=== PATIENT | male | born 1970 | race Caucasian/White ===

== ENCOUNTER 2018-05-12 23:54 | Emergency (ER) | payer OTHER, MEDICAID, SELFPAY ==
[2018-05-13 00:01] VITALS: BP 147/90; PULSE 89; RESP 20; TEMP 36.4; O2SAT 97
[2018-05-13] MEDS: KETOROLAC 60 MG/2 ML VIAL 30 MG IV (00:23)
[2018-05-13 00:28] LABS: Add Manual Diff / Slide Review NO; Basophils Percent Auto 0.8 % (0-2); Eosinophils Percent Auto 5.4 % (2-4); Hematocrit 37.9 % (41-53); Lymphocytes Percent Auto 30.2 % (25-40); Mean Corpuscular HGB Conc 34.4 % (30-36); Mean Corpuscular Volume 93.1 fL (80-100); Monocytes Percent Auto 7.2 % (3-14); Neutrophils Absolute Auto 4300 /uL (3000-5900); Neutrophils Percent Auto 56.4 % (50-75); Platelet Count 290 X10^3/uL (150-400); Red Blood Cell Count 4.07 X10^6/uL (4.5-5.9); Red Cell Distribution Width 12.6 % (11.6-14.8); White Blood Cell Count 7.5 X10^3/uL (4.5-11.0)
[2018-05-13 00:37] LABS: BUN Creatinine Ratio 18.3 (6-22); Blood Urea Nitrogen 22 mg/dL (9-20); Calcium 9.4 mg/dL (8.4-10.2); Carbon Dioxide 25 mmol/L (22-32); Chloride 104 mmol/L (98-107); Estimated Glomerular Filt Rate > 60.0 mL/min (>60); Glucose 99 mg/dL (70-100); HEMOLYSIS 17 (0-50); Potassium 3.8 mmol/L (3.4-5.1); Sodium 141 mmol/L (137-145)
[2018-05-13 00:58] LABS: Bacteria Urine None Seen; RBC Urine None Seen (0-5/HPF)
[2018-05-13 01:00] LABS: Appearance Urine UA CLEAR; Bilirubin Urine UA NEGATIVE (NEGATIVE); Color Urine UA YELLOW; Glucose Urine UA NEGATIVE (Normal); Ketones Urine UA TRACE (NEGATIVE); Leukocyte Esterase Urine UA NEGATIVE (NEGATIVE); Nitrite Urine UA Negative (Negative); Occult Blood Urine UA NEGATIVE (Negative); Protein Urine UA TRACE (Negative); Specific Gravity Urine UA >=1.030 (1.000-1.035); Urobilinogen Urine UA 0.2 E.U./dL (0.2)
[2018-05-13 01:07] LABS: Calcium Oxalate Crystals Urine Moderate; Mucus Urine 1+ (Negative); Squamous Epithelial Cell Urine 0-1 /HPF; WBC Urine 0-1/HPF (0-5/HPF)
[2018-05-13 01:08] LABS: Culture Indicated Urine Cult Not Indicated
[2018-05-13 01:15] VITALS: BP 137/90; PULSE 70; RESP 14; O2SAT 97
[2018-05-13] MEDS: SODIUM CHLORIDE 0.9% IV (01:17)
[2018-05-13] MEDS: LIDOCAINE 2% IV (01:17)
[2018-05-13 02:02] VITALS: BP 119/72; PULSE 84; RESP 13; O2SAT 96
--- NOTE | 2018-05-13 02:15 | ED_ITS ---
HPI - Abdominal Pain General Chief Complaint: Abdominal Pain Stated Complaint: back pain, states possible kidney stone Time Seen by Provider: 05/13/18 00:08 Source: patient Mode of arrival: ambulatory Limitations: no limitations History of Present Illness HPI narrative: Patient is a 47-year-old male who presents with back pain. He has a history of kidney stones and feels like he is passing 1 on the left. However he is here more for worsening chronic back pain which is midline. He does got through physical therapy. He has been taking naproxen for it. He denies any numbness or tingling down her legs. Tonight the pain got worse. No changes in bowel or bladder habits. He feels like help passes kidney stone but seems to be making his chronic back pain worse. MD complaint: flank pain Related Data Home Medications Medication Instructions Recorded Confirmed propranolol 40 mg PO QPM #0 03/21/17 cholecalciferol (vitamin D3) 2,000 unit PO QPM #0 07/26/17 [Vitamin D3] multivitamin [Multiple Vitamins] 1 tab PO QPM #0 07/26/17 naproxen 250 mg PO PRN PRN #0 07/26/17 Previous Rx's Medication Instructions Recorded hydrocodone-acetaminophen [[place]] 1 tab PO Q6HP PRN #10 tab 07/21/17 ondansetron [Zofran ODT] 4 mg SUBLINGUAL Q6HP PRN #10 odt 07/21/17 tamsulosin [Flomax] 0.4 mg PO QDAY #7 cap 07/21/17 tramadol 50 mg PO Q6H PRN #10 tab 05/13/18 Allergies Allergy/AdvReac Type Severity Reaction Status Date / Time meperidine [From DEMEROL] Allergy Unknown Unverified 01/22/18 12:16 Review of Systems Review of Systems GENERAL: Denies chills, fatigue, malaise, fever, sweats, travel HEENT: Denies sinus pain, ear pain, sore throat, difficulty swallowing, neck pain RESPIRATORY: Denies dyspnea, cough, wheezing, hemoptysis, sputum. CARDIOVASCULAR: Denies chest pain, palpitations, orthopnea, edema GASTROINTESTINAL: Denies nausea, vomiting, abdominal pain, diarrhea, constipation, melena. : See HPI MUSCULOSKELETAL: Back pain, see HPI SKIN: No rash, no erythema, no pruritus NEUROLOGIC: Denies weakness, dizziness, headache, numbness, change in speech, confusion PSYCHIATRIC: No concerning psychosocial issues. 12 point review of systems is negative except for those stated above and HPI [facility] Medical History Chronic back pain (Acute) Kidney stones (Acute) Exam Initial Vital Signs Initial Vital Signs: Vital Signs Temperature 97.6 F 05/13/18 00:01 Pulse Rate 89 05/13/18 00:01 Respiratory Rate 20 05/13/18 00:01 Blood Pressure 147/90 H 05/13/18 00:01 Pulse Oximetry 97 05/13/18 00:01 GENERAL: Sitting on edge of bed appears slightly uncomfortable but not toxic HEENT: Head atraumatic,EOMI, pupils reactive, CARDIOVASCULAR: Regular rate and rhythm without murmurs, rubs or gallops. RESPIRATORY: Breath sounds equal bilaterally, no wheezes rales or rhonchi. ABDOMEN: Soft, nontender. Normoactive bowel sounds all 4 quadrants. No guarding or rebound. BACK: Midline tenderness in lumbar area no step-offs. No sign of trauma. : mild left CVA tenderness EXTREMITIES: Normal range of motion, no clubbing or edema. Neurovascularly intact NEUROLOGICAL: Alert and oriented x4.Normal gait and speech. SKIN: Warm, dry, no laceration, no petechiae, no rashes or lesions. Course Orders Ordered: ED Orders 05/13/18 00:19 Basic Metabolic Panel Stat Complete Blood Count AUTO DIFF Stat 05/13/18 00:54 Urinalysis and Microscopic Stat Discontinued Medications Lidocaine HCl 7.3 ml/ Sodium (Chloride) 57.3 mls @ 343.8 mls/hr IV NOW ONE Stop: 05/13/18 01:02 Last Infusion: 05/13/18 01:56 Dose: 0 mls/hr Admin: 05/13/18 01:17 Dose: 343.8 mls/hr Ketorolac Tromethamine (Toradol) 30 mg IV NOW ONE Stop: 05/13/18 00:22 Last Admin: 05/13/18 00:23 Dose: 30 mg Tramadol HCl (Ultram 50mg Prepack) 1 bottle MISC SEEINSTR ONE Stop: 05/13/18 01:58 Last Admin: 05/13/18 02:29 Dose: 1 bottle Vital Signs - 8 hr 05/13/18 00:01 05/13/18 01:15 05/13/18 02:02 Temperature 97.6 F Pulse Rate 89 70 84 Respiratory Rate 20 14 13 Blood Pressure 147/90 H Blood Pressure [Left Arm] 137/90 H 119/72 Pulse Oximetry 97 97 96 05/13/18 02:45 Temperature Pulse Rate 71 Respiratory Rate 14 Blood Pressure 144/99 H Blood Pressure [Left Arm] Pulse Oximetry 97 MDM - Abdominal Pain Lab Data Result diagrams: 05/13/18 00:19 05/13/18 00:19 Lab Results 05/13/18 05/13/18 05/13/18 Range/Units 00:19 00:19 00:54 WBC 7.5 (4.5-11.0) X10^3/uL RBC 4.07 L (4.5-5.9) X10^6/uL Hgb 13.0 L (13.5-17.5) g/dL Hct 37.9 L (41-53) % MCV 93.1 (80-100) fL MCH 32.0 (26-34) PG MCHC 34.4 (30-36) % RDW 12.6 (11.6-14.8) % Plt Count 290 (150-400) X10^3/uL Neut % (Auto) 56.4 (50-75) % Lymph % (Auto) 30.2 (25-40) % [place] % (Auto) 7.2 (3-14) % Eos % (Auto) 5.4 H (2-4) % Baso % (Auto) 0.8 (0-2) % Neut # (Auto) 4300 (5381-2041) /uL Sodium 141 (137-145) mmol/L Potassium 3.8 (3.4-5.1) mmol/L Chloride 104 (98-107) mmol/L Carbon Dioxide 25 (22-32) mmol/L BUN 22 H (9-20) mg/dL Creatinine 1.20 (0.66-1.25) mg/dL Estimated GFR > 60.0 (>60) mL/min BUN/Creatinine Ratio 18.3 (6-22) Glucose 99 (70-100) mg/dL Calcium 9.4 (8.4-10.2) mg/dL Urine Color Yellow Urine Appearance Clear Urine pH 5.0 (4.5-8.0) Ur Specific [place] >=1.030 H (1.000-1.035) Urine Protein Trace H (Negative) Urine Glucose (UA) Negative (Normal) g/dL Urine Ketones Trace H (NEGATIVE) Urine Occult Blood Negative (Negative) Urine Nitrate Negative (Negative) Urine Bilirubin Negative (NEGATIVE) Urine Urobilinogen 0.2 (0.2) E.U./dL Ur Leukocyte Esterase Negative (NEGATIVE) Urine RBC None seen (0-5/HPF) Urine WBC 0-1/hpf (0-5/HPF) Ur Squamous Epith Cells 0-1 /hpf Calcium Oxalate Crystal Moderate H (None) Urine Bacteria None seen (None) Urine Mucus 1+ H (Negative) Ur Culture Indicated? Cult not indicated Micro UA Comment Not Reportable MDM Narrative Medical decision making narrative: The patient's midline back pain is the same as it has been over a number of months. It is unchanged just more acute right now. Likely cause he thinks he is passing a stone at the same time. He has no weakness numbness or tingling in his legs. No fever. Pain has improved some with Toradol. Tried lidocaine infusion which only helped mildly. He will get a prepack and prescription for tramadol. Discharge Plan Departure Patient Disposition: Home, Self-Care Clinical Impression: Back pain Discharge Date/Time: 05/13/18 02:50 Interventions: ED Discharge Assessment Last Done: 05/13/18 02:45 Instructions: DI for Low Back Pain Activity Restrictions/Additional Instructions: *You have been diagnosed with back pain and kidney stone pain *What to do: May need physical therapy for your chronic ongoing below back pain *Continue to take medications as directed Tramadol 1-2 tablets every 6 hr if needed for severe pain *Follow up with your primary care provider in 2-3 days *Return to ER if you should have increasing pain, leg weakness or any new, worsening or concerning symptoms Prescriptions: New tramadol 50 mg tablet 50 mg PO Q6H PRN (Reason: pain) Qty: 10 RF: 0 No Action propranolol 40 MG tablet 40 mg PO QPM Qty: 0 RF: 0 hydrocodone-acetaminophen [[place]] 5 MG/325 MG tablet 1 tab PO Q6HP PRNQty: 10 RF: 0 tamsulosin [Flomax] 0.4 MG capsule,extended release 24hr 0.4 mg PO QDAY Qty: 7 RF: 0 ondansetron [Zofran ODT] 4 MG tablet,disintegrating 4 mg Sublingual Q6HP PRNQty: 10 RF: 0 multivitamin [Multiple Vitamins] 1 EACH tablet 1 tab PO QPM Qty: 0 RF: 0 naproxen 250 MG tablet 250 mg PO PRN PRNQty: 0 RF: 0 cholecalciferol (vitamin D3) [Vitamin D3] 2,000 UNIT capsule 2,000 unit PO QPM Qty: 0 RF: 0 Referrals: Velma Todd ARNP [Primary Care Provider] -
[2018-05-13] MEDS: TRAMADOL 50 MG PREPACK 1 BOTTLE MISC (02:29)
[2018-05-13 02:45] VITALS: BP 144/99; PULSE 71; RESP 14; O2SAT 97
== END 2018-05-13 02:50 | disposition home or self-care (01) ==
PROVIDERS: Emergency Provider Emergency Medicine; Family Provider Nurse Practitioner Gerontology; PCP Nurse Practitioner Gerontology
DX: M54.9 Dorsalgia, unspecified (principal)
CPT/HCPCS: 36591; 80048; 81001; 85025; 96374; 96375; 99283; 99284; J1885

== ENCOUNTER 2018-12-17 21:22 | Emergency (ER) | payer OTHER, MEDICAID, SELFPAY ==
[2018-12-17 21:38] VITALS: BP 160/90; PULSE 96; RESP 20; TEMP 36.9; O2SAT 96; BMI 29.9
--- NOTE | 2018-12-17 22:28 | DI.RAD.S_ITS ---
PROCEDURE: XR CHEST 1V INDICATIONS: syncope, cough TECHNIQUE: One view of the chest was acquired. COMPARISON: [facility], , CHEST 1 VIEW, 07/26/2017, 19:14. FINDINGS: Surgical changes and devices: None. Lungs and pleura: Lungs are clear. No pleural effusions or pneumothorax. Mediastinum: Mediastinal contours appear normal. Heart size is normal. Bones and chest wall: No suspicious bony lesions. Overlying soft tissues appear unremarkable. IMPRESSION: No acute cardiopulmonary disease process. Dictated by: Monserrat Du MD, PhD on 12/18/2018 at 9:17 Approved by: Monserrat Du MD, PhD on 12/18/2018 at 9:17
[2018-12-17 22:29] VITALS: BP 145/87; PULSE 98; RESP 18; O2SAT 96
[2018-12-17 23:01] LABS: Add Manual Diff / Slide Review NO; Alanine Aminotransferase 52 IU/L (21-72); Albumin 4.4 g/dL (3.5-5.0); Albumin Globulin Ratio 1.4 (1.0-2.8); Alkaline Phosphatase 61 U/L (38-126); Aspartate Aminotransferase 30 IU/L (17-59); BUN Creatinine Ratio 17.3 (6-22); Basophils Absolute Auto 0 /uL (0-100); Basophils Percent Auto 0.3 % (0-2); Bilirubin Total 0.3 mg/dL (0.2-1.3); Blood Urea Nitrogen 19 mg/dL (9-20); Calcium 9.4 mg/dL (8.4-10.2); Carbon Dioxide 28 mmol/L (22-32); Chloride 100 mmol/L (98-107); Eosinophils Absolute Auto 0 /uL (0-450); Eosinophils Percent Auto 0.1 % (2-4); Estimated Glomerular Filt Rate > 60.0 mL/min (>60); Globulin 3.2 g/dL (1.7-4.1); Glucose 121 mg/dL (70-100); HEMOLYSIS < 15 (0-50); Hematocrit 42.8 % (41-53); Hemoglobin 14.2 g/dL (13.5-17.5); Lymphocytes Absolute Auto 600 /uL (1100-4500); Lymphocytes Percent Auto 8.1 % (25-40); Mean Corpuscular HGB Conc 33.2 % (30-36); Mean Corpuscular Volume 93.3 fL (80-100); Monocytes Absolute Auto 600 /uL (0-900); Neutrophils Absolute Auto 6600 /uL (1500-7000); Neutrophils Percent Auto 83.5 % (50-75); Platelet Count 268 X10^3/uL (150-400); Potassium 4.4 mmol/L (3.4-5.1); Red Blood Cell Count 4.58 X10^6/uL (4.5-5.9); Red Cell Distribution Width 12.5 % (11.6-14.8); Sodium 138 mmol/L (137-145); Total Protein 7.6 g/dL (6.3-8.2); White Blood Cell Count 7.9 X10^3/uL (4.5-11.0)
[2018-12-17 23:31] VITALS: BP 145/87; PULSE 96; RESP 18; O2SAT 96
--- NOTE | 2018-12-18 00:33 | ED_ITS ---
HPI - URI/Sore Throat General Chief Complaint: Upper Respiratory Symptoms Stated Complaint: STATES PASSES OUT WHEN COUGH OR SNEEZE Time Seen by Provider: 12/18/18 00:15 Source: patient Mode of arrival: ambulatory Limitations: no limitations History of Present Illness HPI Narrative: The patient has been ill for 3 weeks. He has spasmodic cough. The coughing hurts so bad he complains of bilateral headache. He has passed out following a spastic cough. He has no associated chest pain. He has no palpitations. He is on meds for hypertension, apparently no Andi inhibitors. He has no chronic cough. He has no asthma. He is not a smoker. He is seen at [facility], chest x-ray was reported normal. Was given a brief course of steroids. He has no eye discharge. He has bilateral frontal pain. Although coug atif, he has no dyspnea and no hemoptysis. He has no associated chest pain. He has no peripheral edema. Related Data Home Medications Medication Instructions Recorded Confirmed propranolol 40 mg PO QPM #0 03/21/17 cholecalciferol (vitamin D3) 2,000 unit PO QPM #0 07/26/17 [Vitamin D3] multivitamin [Multiple Vitamins] 1 tab PO QPM #0 07/26/17 naproxen 250 mg PO PRN PRN #0 07/26/17 albuterol sulfate [ProAir HFA] 12/17/18 diclofenac sodium 12/17/18 prednisone 12/17/18 Previous Rx's Medication Instructions Recorded hydrocodone-acetaminophen [[place]] 1 tab PO Q6HP PRN #10 tab 07/21/17 ondansetron [Zofran ODT] 4 mg SUBLINGUAL Q6HP PRN #10 odt 07/21/17 tamsulosin [Flomax] 0.4 mg PO QDAY #7 cap 07/21/17 tramadol 50 mg PO Q6H PRN #10 tab 05/13/18 amoxicillin-pot clavulanate 1 tab PO BID #20 tab 12/18/18 prednisone 60 mg PO DAILY #9 tab 12/18/18 Allergies Allergy/AdvReac Type Severity Reaction Status Date / Time meperidine [From DEMEROL] Allergy Unknown Unverified 01/22/18 12:16 Review of Systems Constitutional Reports system reviewed and no additional complaints, except as docu and Reports headache(s) Eyes Denies change in vision, Denies eye discharge, Denies irritation and Denies loss of vision ENT Ears, Nose, Mouth, and Throat: Denies change in voice, Reports headache(s), De nies neck pain and Denies sore throat Cardiovascular Denies chest pain, Reports syncope, Denies irregular heart rhythm, Denies lightheadedness, Denies palpitations, Denies dyspnea and Denies orthopnea Respiratory Denies cough, Denies dyspnea and Denies wheezing Gastrointestinal Gastrointestinal: Denies abdominal pain, Denies nausea and Denies vomiting Musculoskeletal Denies back pain and Denies neck pain Integumentary/Breasts Denies erythema and Denies rash Neurologic Denies confusion, Reports syncope, Reports headache(s) and Denies loss of vision Psychiatric Denies anxiety and Denies confusion Endocrine Denies palpitations Allergic/Immunologic Denies wheezing PFSH Medical History Hypertension (Acute) Chronic back pain (Acute) Kidney stones (Acute) Surgical History No pertinent past surgical history (Acute) Social History Smoking Status: Never smoker Social History Smoking Status: Never smoker Exam Initial Vital Signs Initial Vital Signs: Vital Signs Temperature 98.4 F 12/17/18 21:38 Pulse Rate 96 H 12/17/18 21:38 Respiratory Rate 20 12/17/18 21:38 Blood Pressure 160/90 H 12/17/18 21:38 Pulse Oximetry 96 12/17/18 21:38 Const General: cooperative and well developed Nutritional Appearance: well nourished Orientation: alert, awake, oriented x3 and not confused Other: Frequent spasmodic coughs HENMT Head: normocephalic and atraumatic Ears: external ears normal, TM normal on the right, TM normal on the left (Clear fluid behind the left TM.) and mastoids normal Nose: external nose normal and No nasal discharge Face and sinus: sinuses nontender (No maxillary or ethmoid tenderness. Bilateral forehead discomfort w/ cough), face symmetric, no sinus tenderness and No dry mucous membranes Mouth: oral mucosae normal and moist mucous membranes Teeth and gingiva: dentition normal Throat: tonsils normal and uvula midline Eyes General: appearance normal, both eyes and all related structures Eyelids: eyelids normal Conjunctivae: conjunctivae normal Sclera: sclerae normal Pupils: PERRL EOM: EOM intact bilaterally Neck Lymphatic: No lymphadenopathy Chest Chest: normal inspection of the chest Resp Effort & Inspection: normal respiratory effort, able to speak in complete sentences, no respiratory distress and no use of accessory muscles Auscultation: clear to auscultation bilaterally, no rales, no rhonchi and no wheezes Cardio Rate: regular rate Rhythm: regular rhythm Heart Sounds: no click, no gallops, no murmurs and no rubs Pulses: normal peripheral pulses Skin General: no rashes or lesions noted, No jaundice and No petechiae Course Orders Ordered: ED Orders 12/17/18 22:28 Chest [XR chest 1V] Stat EKG-12 Lead Stat 12/17/18 22:44 Complete Blood Count AUTO DIFF Stat Comprehensive Metabolic Panel Stat Discontinued Medications Amoxicillin/Clavulanate Potassium (Augmentin 875-125 Mg) 1 tab PO NOW ONE Stop: 12/18/18 01:40 Last Admin: 12/18/18 01:44 Dose: 1 tab Ketorolac Tromethamine (Toradol) 60 mg IM NOW ONE Stop: 12/18/18 03:35 Last Admin: 12/18/18 03:36 Dose: 60 mg Prednisone (Deltasone) 60 mg PO NOW ONE Stop: 12/18/18 01:40 Last Admin: 12/18/18 01:44 Dose: 60 mg Vital Signs - 8 hr 12/17/18 21:38 12/17/18 22:29 12/17/18 23:31 Temperature 98.4 F Pulse Rate 96 H 98 H 96 H Respiratory Rate 20 18 18 Blood Pressure 160/90 H Blood Pressure [Right Arm] 145/87 H 145/87 H Pulse Oximetry 96 96 96 12/18/18 02:08 12/18/18 03:37 Temperature Pulse Rate 88 96 H Respiratory Rate 20 20 Blood Pressure Blood Pressure [Right Arm] 126/77 143/97 H Pulse Oximetry 96 96 MDM - URI/Sore Throat Lab Data Result diagrams: 12/17/18 22:44 12/17/18 22:44 Lab Results 12/17/18 12/17/18 Range/Units 22:44 22:44 WBC 7.9 (4.5-11.0) X10^3/uL RBC 4.58 (4.5-5.9) X10^6/uL Hgb 14.2 (13.5-17.5) g/dL Hct 42.8 (41-53) % MCV 93.3 (80-100) fL MCH 31.0 (26-34) PG MCHC 33.2 (30-36) % RDW 12.5 (11.6-14.8) % Plt Count 268 (150-400) X10^3/uL Neut % (Auto) 83.5 H (50-75) % Lymph % (Auto) 8.1 L (25-40) % [place] % (Auto) 8.0 (3-14) % Eos % (Auto) 0.1 L (2-4) % Baso % (Auto) 0.3 (0-2) % Neut # (Auto) 6600 (3399-0372) /uL Lymph # (Auto) 600 L (5563-9842) /uL [place] # (Auto) 600 (0-900) /uL Eos # (Auto) 0 (0-450) /uL Baso # (Auto) 0 (0-100) /uL Sodium 138 (137-145) mmol/L Potassium 4.4 (3.4-5.1) mmol/L Chloride 100 (98-107) mmol/L Carbon Dioxide 28 (22-32) mmol/L BUN 19 (9-20) mg/dL Creatinine 1.10 (0.66-1.25) mg/dL Estimated GFR > 60.0 (>60) mL/min BUN/Creatinine Ratio 17.3 (6-22) Glucose 121 H (70-100) mg/dL Calcium 9.4 (8.4-10.2) mg/dL Total Bilirubin 0.3 (0.2-1.3) mg/dL AST 30 (17-59) IU/L ALT 52 (21-72) IU/L Alkaline Phosphatase 61 (38-126) U/L Total Protein 7.6 (6.3-8.2) g/dL Albumin 4.4 (3.5-5.0) g/dL Globulin 3.2 (1.7-4.1) g/dL Albumin/Globulin Ratio 1.4 (1.0-2.8) Imaging Data Chest x-ray: My impression: Normal ECG Data Attestation: I personally reviewed and interpreted this ECG as follows: (Sinus tachycardia rate 101 bpm. Moderate LV criteria for LVH. No acute ST or T-wave changes. No ectopy.) [facility] Narrative Medical decision making narrative: The patient was given prednisone 60 mg daily plus started on Augmentin for sphenoid sinusitis. He was also given Toradol for headache. He seems to be feeling much better. Discharge Plan Departure Patient Disposition: Home Clinical Impression: Acute sphenoidal sinusitis Qualifiers: Recurrence: non-recurrent Qualified Code(s): J01.30 - Acute sphenoidal sinusi tis, unspecified Instructions: DI for Sinusitis Activity Restrictions/Additional Instructions: Augmentin 2 times daily as prescribed. Prednisone 60 mg daily. Use cough syrups as needed. Tylenol or Advil as necessary for headache. Drink plenty of fluids. Return here if not improving within 4-5 days. Prescriptions: New prednisone 20 mg tablet 60 mg PO DAILY Qty: 9 RF: 0 amoxicillin-pot clavulanate 875-125 mg tablet 1 tab PO BID Qty: 20 RF: 0 No Action propranolol 40 MG tablet 40 mg PO QPM Qty: 0 RF: 0 hydrocodone-acetaminophen [[place]] 5 MG/325 MG tablet 1 tab PO Q6HP PRNQty: 10 RF: 0 tamsulosin [Flomax] 0.4 MG capsule,extended release 24hr 0.4 mg PO QDAY Qty: 7 RF: 0 ondansetron [Zofran ODT] 4 MG tablet,disintegrating 4 mg Sublingual Q6HP PRNQty: 10 RF: 0 multivitamin [Multiple Vitamins] 1 EACH tablet 1 tab PO QPM Qty: 0 RF: 0 naproxen 250 MG tablet 250 mg PO PRN PRNQty: 0 RF: 0 cholecalciferol (vitamin D3) [Vitamin D3] 2,000 UNIT capsule 2,000 unit PO QPM Qty: 0 RF: 0 prednisone 20 mg tablet RF: 0 ProAir HFA 90 mcg/actuation HFA aerosol inhaler RF: 0 diclofenac sodium 75 mg tablet,delayed release (DR/EC) RF: 0 tramadol 50 mg tablet 50 mg PO Q6H PRN (Reason: pain) Qty: 10 RF: 0 Referrals: Velma Todd ARNP [Primary Care Provider] -
[2018-12-18] MEDS: predniSONE 20 MG TABLET 60 MG PO (01:44)
[2018-12-18] MEDS: AMOXICILLIN/CLAV 875/125 MG 1 TAB PO (01:44)
[2018-12-18 02:08] VITALS: BP 126/77; PULSE 88; RESP 20; O2SAT 96
[2018-12-18] MEDS: KETOROLAC 60 MG/2 ML VIAL IM (03:36)
[2018-12-18 03:37] VITALS: BP 143/97; PULSE 96; RESP 20; O2SAT 96
== END 2018-12-18 04:00 | disposition home or self-care (01) ==
PROVIDERS: Emergency Provider Emergency Medicine; Family Provider Nurse Practitioner Gerontology; PCP Nurse Practitioner Gerontology
DX: J01.30 Acute sphenoidal sinusitis, unspecified (principal); R55 Syncope and collapse
CPT/HCPCS: 36415; 71045; 80053; 85025; 93005; 93010; 99283; 99285; J1885

== ENCOUNTER 2019-01-04 22:05 | Emergency (ER) | payer OTHER, MEDICAID, SELFPAY ==
[2019-01-04 22:13] VITALS: BP 128/87; PULSE 78; RESP 18; O2SAT 96
[2019-01-04 22:24] VITALS: TEMP 36.7
--- NOTE | 2019-01-04 22:37 | ED.URI ---
HPI - URI/Sore Throat General Chief Complaint: Upper Respiratory Symptoms Stated Complaint: says struggling to get air,blacking out Time Seen by Provider: 01/04/19 22:16 Source: patient Mode of arrival: ambulatory Limitations: no limitations History of Present Illness HPI Narrative: Otherwise healthy 48-year-old male here for evaluation of cough and sinus congestion and itchy and watery eyes. He states that he has had episodes where he has coughed so hard that he blacks out. Does have an inhaler at home. He states that he feels like he is short of breath when he coughs. Seen here in the emergency department in the past for this and had x-rays which did not show any new symptoms. Has been on Augmentin recently for sinus infection after he presented with similar symptoms. Related Data Home Medications Medication Instructions Recorded Confirmed propranolol 40 mg PO QPM #0 03/21/17 cholecalciferol (vitamin D3) 2,000 unit PO QPM #0 07/26/17 [Vitamin D3] multivitamin [Multiple Vitamins] 1 tab PO QPM #0 07/26/17 naproxen 250 mg PO PRN PRN #0 07/26/17 albuterol sulfate [ProAir HFA] 12/17/18 diclofenac sodium 12/17/18 prednisone 12/17/18 Previous Rx's Medication Instructions Recorded hydrocodone-acetaminophen [[place]] 1 tab PO Q6HP PRN #10 tab 07/21/17 ondansetron [Zofran ODT] 4 mg SUBLINGUAL Q6HP PRN #10 odt 07/21/17 tamsulosin [Flomax] 0.4 mg PO QDAY #7 cap 07/21/17 tramadol 50 mg PO Q6H PRN #10 tab 05/13/18 amoxicillin-pot clavulanate 1 tab PO BID #20 tab 12/18/18 prednisone 60 mg PO DAILY #9 tab 12/18/18 Allergies Allergy/AdvReac Type Severity Reaction Status Date / Time meperidine [From DEMEROL] Allergy Unknown Unverified 01/22/18 12:16 Review of Systems Constitutional Denies fever(s) Eyes Reports eye discharge, Reports irritation and Reports itchy eyes ENT Ears, Nose, Mouth, and Throat: Reports sinus pressure Cardiovascular Reports dyspnea Respiratory Reports cough and Reports dyspnea Gastrointestinal Gastrointestinal: Denies vomiting Musculoskeletal Denies myalgias Integumentary/Breasts Denies rash Hematologic/Lymphatic Denies easy bleeding and Denies easy bruising Allergic/Immunologic Reports itchy eyes PFSH Medical History Chronic back pain (Acute) Hypertension (Acute) Kidney stones (Acute) Surgical History No pertinent past surgical history (Acute) Social History Smoking Status: Never smoker Social History Smoking Status: Never smoker Exam Initial Vital Signs Initial Vital Signs: Vital Signs Pulse Rate 78 01/04/19 22:13 Respiratory Rate 18 01/04/19 22:13 Blood Pressure 128/87 01/04/19 22:13 Pulse Oximetry 96 01/04/19 22:13 Const General: cooperative, comfortable, well developed, well groomed and No acute distress Orientation: alert, awake and oriented x3 HENMT Head: normal to inspection and normocephalic Resp Effort & Inspection: normal respiratory effort Auscultation: clear to auscultation bilaterally Cardio Rate: regular rate Rhythm: regular rhythm Skin Lesions: no lesions Rashes: no rashes Neuro General: alert, awake and oriented x3 Extrem General: normal to inspection and capillary refill normal Psych Appearance: grossly normal and well kempt Course Orders Ordered: ED Orders 01/04/19 22:15 Influenza A and B by PCR Rapid Stat Vital Signs - 8 hr 01/04/19 22:13 01/04/19 22:24 01/04/19 23:25 Temperature 98.1 F Pulse Rate 78 82 Respiratory Rate 18 18 Blood Pressure 128/87 130/81 Pulse Oximetry 96 99 MDM - URI/Sore Throat Lab Data Attestation: I reviewed the patient's lab results. Lab Results 01/04/19 Range/Units 22:15 Influenza A & B (PCR) Negative (Negative) [facility] Narrative Medical decision making narrative: Patient is nontoxic. Has not coughed since being here in the ER. His flu negative. Had a chest x-ray the last time he was here for evaluation of this which was unremarkable. He has a clear lung exam. Has recently been on antibiotics and steroids which has not seemed to help his symptoms all that much. He does have symptoms consistent with allergies. We did discuss the use of antihistamines and nasal sprays. Do not feel that further workup here in the emergency department is warranted. Low suspicion for CVA. No indication for further antibiotics. I have the patient follow up with his primary doctor. He expressed understanding and agreement plan. Discharge Plan Departure Patient Disposition: Home Clinical Impression: Cough, Environmental allergies Discharge Date/Time: 01/04/19 23:26 Interventions: ED Discharge Assessment Last Done: 01/04/19 23:25 Instructions: Allergies (Alternative Therapy), Cough (Alternative Therapy), Cough Activity Restrictions/Additional Instructions: I recommend that you purchase [id number] Claritin or Lizz or Zyrtec and a nasal spray such as Flonase or Nasonex and take them as directed. Contact your primary doctor for follow-up. Return to the emergency department for any new symptoms Prescriptions: No Action propranolol 40 MG tablet 40 mg PO QPM Qty: 0 RF: 0 hydrocodone-acetaminophen [[place]] 5 MG/325 MG tablet 1 tab PO Q6HP PRNQty: 10 RF: 0 tamsulosin [Flomax] 0.4 MG capsule,extended release 24hr 0.4 mg PO QDAY Qty: 7 RF: 0 ondansetron [Zofran ODT] 4 MG tablet,disintegrating 4 mg Sublingual Q6HP PRNQty: 10 RF: 0 multivitamin [Multiple Vitamins] 1 EACH tablet 1 tab PO QPM Qty: 0 RF: 0 naproxen 250 MG tablet 250 mg PO PRN PRNQty: 0 RF: 0 cholecalciferol (vitamin D3) [Vitamin D3] 2,000 UNIT capsule 2,000 unit PO QPM Qty: 0 RF: 0 prednisone 20 mg tablet RF: 0 ProAir HFA 90 mcg/actuation HFA aerosol inhaler RF: 0 diclofenac sodium 75 mg tablet,delayed release (DR/EC) RF: 0 prednisone 20 mg tablet 60 mg PO DAILY Qty: 9 RF: 0 amoxicillin-pot clavulanate 875-125 mg tablet 1 tab PO BID Qty: 20 RF: 0 tramadol 50 mg tablet 50 mg PO Q6H PRN (Reason: pain) Qty: 10 RF: 0 Referrals: Velma Todd ARNP [Primary Care Provider] -
[2019-01-04 22:56] LABS: Influenza A and B by PCR Rapid Negative (Negative)
[2019-01-04 23:25] VITALS: BP 130/81; PULSE 82; RESP 18; O2SAT 99
== END 2019-01-04 23:26 | disposition home or self-care (01) ==
PROVIDERS: Emergency Provider Emergency Medicine; Family Provider Nurse Practitioner Gerontology; PCP Nurse Practitioner Gerontology
DX: R05 Cough (principal); Z91.09 Other allergy status, other than to drugs and biological substances
CPT/HCPCS: 87400; 99282

== ENCOUNTER 2019-04-13 20:59 | Emergency (ER) | payer OTHER, MEDICAID, SELFPAY ==
[2019-04-13 21:08] VITALS: BP 150/86; PULSE 95; RESP 14; TEMP 36.6; O2SAT 97; BMI 29.8
--- NOTE | 2019-04-13 21:09 | ED.CHESTPAIN ---
HPI - Chest Pain General Chief Complaint: Chest Pain Stated Complaint: thinks having heart attack Time Seen by Provider: 04/13/19 21:09 Source: patient Mode of arrival: ambulatory Limitations: no limitations History of Present Illness HPI narrative: 48-year-old male here for evaluation what he thinks is potentially a heart attack. He states that he was at work this started having tingling down his left arm into his hand. He states that it was not consistent was coming and going. Denies any chest pain or shortness of breath. He states that it occasionally radiated up into the left side of his neck. He stated that thought maybe was having a panic attack. He has had similar symptoms in the past when having a panic attack but these were somewhat different. He reported that he did smoke some marijuana to try to calm down his symptoms do not improve so he came to the emergency department for evaluation. States symptoms were not worse with movement or palpation or breathing. Related Data Home Medications Medication Instructions Recorded Confirmed propranolol 40 mg PO QPM #0 03/21/17 cholecalciferol (vitamin D3) 2,000 unit PO QPM #0 07/26/17 [Vitamin D3] multivitamin [Multiple Vitamins] 1 tab PO QPM #0 07/26/17 naproxen 250 mg PO PRN PRN #0 07/26/17 albuterol sulfate [ProAir HFA] 12/17/18 diclofenac sodium 12/17/18 prednisone 12/17/18 Previous Rx's Medication Instructions Recorded hydrocodone-acetaminophen [Algonac] 1 tab PO Q6HP PRN #10 tab 07/21/17 ondansetron [Zofran ODT] 4 mg SUBLINGUAL Q6HP PRN #10 odt 07/21/17 tamsulosin [Flomax] 0.4 mg PO QDAY #7 cap 07/21/17 tramadol 50 mg PO Q6H PRN #10 tab 05/13/18 amoxicillin-pot clavulanate 1 tab PO BID #20 tab 12/18/18 prednisone 60 mg PO DAILY #9 tab 12/18/18 Allergies Allergy/AdvReac Type Severity Reaction Status Date / Time morphine Allergy Intermediate Rash Verified 04/13/19 22:13 meperidine [From DEMEROL] Allergy Unknown Verified 04/13/19 21:15 Review of Systems Constitutional Denies fever(s) and Denies headache(s) ENT Ears, Nose, Mouth, and Throat: Denies headache(s) Cardiovascular Denies chest pain, Denies leg edema, Reports radiating jaw, neck or arm pain and Denies dyspnea Respiratory Denies dyspnea Gastrointestinal Gastrointestinal: Denies abdominal pain, Denies nausea and Denies vomiting Musculoskeletal Denies back pain, Denies myalgias, Denies arthralgias and Reports tingling Integumentary/Breasts Denies rash and Denies jaundice Neurologic Denies headache(s), Reports tingling and Reports paresthesias Hematologic/Lymphatic Denies easy bleeding and Denies easy bruising Allergic/Immunologic Denies urticaria [facility] Medical History Chronic back pain (Acute) Hypertension (Acute) Kidney stones (Acute) Surgical History No pertinent past surgical history (Acute) Social History Smoking Status: Never smoker Social History Smoking Status: Never smoker Exam Initial Vital Signs Initial Vital Signs: Vital Signs Temperature 97.9 F 04/13/19 21:08 Pulse Rate 95 H 04/13/19 21:08 Respiratory Rate 14 04/13/19 21:08 Blood Pressure 150/86 H 04/13/19 21:08 Pulse Oximetry 97 04/13/19 21:08 Const General: cooperative, healthy appearing, comfortable, well developed, well groomed and No acute distress Orientation: alert, awake and oriented x3 HENMT Head: normal to inspection and normocephalic Resp Effort & Inspection: normal respiratory effort Auscultation: clear to auscultation bilaterally Cardio Rate: regular rate Rhythm: regular rhythm Pulses: radial pulses present GI Inspection: non-distended Palpation: soft and No firm Skin Lesions: no lesions Rashes: no rashes Neuro General: alert and awake Cognition: normal cognition Speech: speech normal Extrem General: normal to inspection and capillary refill normal Psych Appearance: grossly normal and well kempt Scores GCS [place] coma scale eye opening: Spontaneous [place] coma scale verbal response: Orientated [place] coma scale motor response: Obey commands [place] coma scale total score: 15 HEART Score Heart Score history: Slightly Suspicious Heart Score EKG: Normal Heart Score Age: 45-64 years old Heart Score risk factors: No known risk factors Heart Score troponin: < or = to normal limit Heart Score Total: 1 Course Orders Ordered: ED Orders 04/13/19 21:08 XR chest 1V Stat EKG-12 Lead Stat 04/13/19 21:28 Complete Blood Count AUTO DIFF Stat Comprehensive Metabolic Panel Stat Lipase Stat Partial Thromboplastin Time Stat Prothrombin Time INR Stat Troponin & CK Cardiac Panel Stat 04/13/19 23:25 Troponin I Stat Discontinued Medications Hydromorphone HCl (Dilaudid) 0.5 mg IV NOW ONE Stop: 04/13/19 22:04 Last Admin: 04/13/19 22:07 Dose: 0.5 mg Morphine Sulfate (Morphine) 2 mg IV NOW ONE Stop: 04/13/19 22:01 Last Admin: 04/13/19 22:11 Dose: Not Given Ondansetron HCl (Zofran) 4 mg IV NOW ONE Stop: 04/13/19 22:11 Last Admin: 04/13/19 22:12 Dose: 4 mg Vital Signs - 8 hr 04/13/19 21:08 04/13/19 21:32 04/13/19 22:42 Temperature 97.9 F Pulse Rate 95 H 78 71 Respiratory Rate 14 17 13 Blood Pressure 150/86 H Blood Pressure [Right Arm] 142/78 H 134/81 Pulse Oximetry 97 100 97 04/14/19 00:18 Temperature Pulse Rate 79 Respiratory Rate 14 Blood Pressure 131/76 Blood Pressure [Right Arm] Pulse Oximetry 99 MDM - Chest Pain Lab Data Attestation: I reviewed the patient's lab results. Result diagrams: 04/13/19 21:28 04/13/19 21:28 Lab Results 04/13/19 04/13/19 04/13/19 Range/Units 21:28 21:28 21:28 WBC 7.2 (4.5-11.0) X10^3/uL RBC 4.23 L (4.5-5.9) X10^6/uL Hgb 13.4 L (13.5-17.5) g/dL Hct 39.4 L (41-53) % MCV 93.1 (80-100) fL MCH 31.6 (26-34) PG MCHC 34.0 (30-36) % RDW 12.2 (11.6-14.8) % Plt Count 290 (150-400) X10^3/uL Neut % (Auto) 65.3 (50-75) % Lymph % (Auto) 23.5 L (25-40) % [place] % (Auto) 7.7 (3-14) % Eos % (Auto) 2.7 (2-4) % Baso % (Auto) 0.8 (0-2) % Neut # (Auto) 4700 (0576-7729) /uL Lymph # (Auto) 1700 (5835-0537) /uL [place] # (Auto) 600 (0-900) /uL Eos # (Auto) 200 (0-450) /uL Baso # (Auto) 100 (0-100) /uL PT 11.3 (10.1-12.7) SECONDS INR 1.0 (0.9-1.3) APTT 32 (26.4-36.2) SECONDS Sodium 142 (137-145) mmol/L Potassium 4.0 (3.4-5.1) mmol/L Chloride 104 (98-107) mmol/L Carbon Dioxide 28 (22-32) mmol/L BUN 20 (9-20) mg/dL Creatinine 1.40 H (0.66-1.25) mg/dL Estimated GFR 54.6 L (>60) mL/min BUN/Creatinine Ratio 14.3 (6-22) Glucose 76 (70-100) mg/dL Calcium 9.3 (8.4-10.2) mg/dL Total Bilirubin 0.4 (0.2-1.3) mg/dL AST 26 (17-59) IU/L ALT 29 (21-72) IU/L Alkaline Phosphatase 67 (38-126) U/L Total Creatine Kinase 220 H (55-170) U/L CK-MB (CK-2) 3.44 H (<2.37) ng/mL CK-MB (CK-2) Rel Index 1.6 (1.5-5.0) % Troponin I < 0.012 (0.01-0.034) ng/mL Total Protein 7.2 (6.3-8.2) g/dL Albumin 4.3 (3.5-5.0) g/dL Globulin 2.9 (1.7-4.1) g/dL Albumin/Globulin Ratio 1.5 (1.0-2.8) Lipase 66 (23-300) U/L 04/13/19 Range/Units 23:25 WBC (4.5-11.0) X10^3/uL RBC (4.5-5.9) X10^6/uL Hgb (13.5-17.5) g/dL Hct (41-53) % MCV (80-100) fL MCH (26-34) PG MCHC (30-36) % RDW (11.6-14.8) % Plt Count (150-400) X10^3/uL Neut % (Auto) (50-75) % Lymph % (Auto) (25-40) % [place] % (Auto) (3-14) % Eos % (Auto) (2-4) % Baso % (Auto) (0-2) % Neut # (Auto) (3785-7204) /uL Lymph # (Auto) (1864-5837) /uL [place] # (Auto) (0-900) /uL Eos # (Auto) (0-450) /uL Baso # (Auto) (0-100) /uL PT (10.1-12.7) SECONDS INR (0.9-1.3) APTT (26.4-36.2) SECONDS Sodium (137-145) mmol/L Potassium (3.4-5.1) mmol/L Chloride (98-107) mmol/L Carbon Dioxide (22-32) mmol/L BUN (9-20) mg/dL Creatinine (0.66-1.25) mg/dL Estimated GFR (>60) mL/min BUN/Creatinine Ratio (6-22) Glucose (70-100) mg/dL Calcium (8.4-10.2) mg/dL Total Bilirubin (0.2-1.3) mg/dL AST (17-59) IU/L ALT (21-72) IU/L Alkaline Phosphatase (38-126) U/L Total Creatine Kinase (55-170) U/L CK-MB (CK-2) (<2.37) ng/mL CK-MB (CK-2) Rel Index (1.5-5.0) % Troponin I 0.013 (0.01-0.034) ng/mL Total Protein (6.3-8.2) g/dL Albumin (3.5-5.0) g/dL Globulin (1.7-4.1) g/dL Albumin/Globulin Ratio (1.0-2.8) Lipase (23-300) U/L Imaging Data Chest x-ray: Radiologist's impression: [address] [id number] XRay Report Signed Patient: Javan Galo RMR#: [id number] : 1970Acct:[id number] Age/Sex: 48 / MDate of Service: 04/13/19 Loc: ED Accession Number: [id number] Procedure: XR chest 1V Ordering Provider: Carlo Wallace D.O. PROCEDURE: XR CHEST 1V INDICATIONS: chest pain TECHNIQUE: One view of the chest was acquired. COMPARISON: [facility], , XR CHEST 1V, 12/17/2018, 22:32. FINDINGS: Surgical changes and devices: None. Lungs and pleura: Lungs are clear. No pleural effusions or pneumothorax. Mediastinum: Mediastinal contours appear normal. Heart size is normal. Bones and chest wall: No suspicious bony lesions. Overlying soft tissues appear unremarkable. IMPRESSION: No acute pulmonary process. Dictated by: Milagro Rai M.D. on 04/13/2019 at 21:30 Approved by: Milagro Rai M.D. on 04/13/2019 at 21:31 ECG Data Attestation: I personally reviewed and interpreted this ECG as follows: Prior ECG tracings: not available for review Interpretation: Sinus rhythm Ventricular rate 87 Normal axis Normal QRS Normal QTC No ST T wave changes MDM Narrative Medical decision making narrative: Patient with a low heart score. EKG is unremarkable. Troponins are negative x2. Low suspicion for ACS. I do suspect either radiculopathy versus anxiety. Upon my final discussion with the patient in his room he stated that the pain in his left arm is now on his left hip. He states it moved from his arm to his neck to his hip. Will hold on further workup for now. Patient was given return precautions and follow-up instructions. He expressed understanding and agreement with plan. Discharge Plan Departure Patient Disposition: Home Clinical Impression: Arm paresthesia, left Discharge Date/Time: 04/14/19 00:18 Interventions: ED Discharge Assessment Last Done: 04/14/19 00:18 Instructions: DI for Numbness/tingling Activity Restrictions/Additional Instructions: Recommend you start taking naproxen 2 times a day as needed. Keep her scheduled follow-up appointment with her primary provider. Return to the emergency department for any new or worsening symptoms Prescriptions: No Action propranolol 40 MG tablet 40 mg PO QPM Qty: 0 RF: 0 hydrocodone-acetaminophen [Algonac] 5 MG/325 MG tablet 1 tab PO Q6HP PRNQty: 10 RF: 0 tamsulosin [Flomax] 0.4 MG capsule,extended release 24hr 0.4 mg PO QDAY Qty: 7 RF: 0 ondansetron [Zofran ODT] 4 MG tablet,disintegrating 4 mg Sublingual Q6HP PRNQty: 10 RF: 0 multivitamin [Multiple Vitamins] 1 EACH tablet 1 tab PO QPM Qty: 0 RF: 0 naproxen 250 MG tablet 250 mg PO PRN PRNQty: 0 RF: 0 cholecalciferol (vitamin D3) [Vitamin D3] 2,000 UNIT capsule 2,000 unit PO QPM Qty: 0 RF: 0 prednisone 20 mg tablet RF: 0 ProAir HFA 90 mcg/actuation HFA aerosol inhaler RF: 0 diclofenac sodium 75 mg tablet,delayed release (DR/EC) RF: 0 prednisone 20 mg tablet 60 mg PO DAILY Qty: 9 RF: 0 amoxicillin-pot clavulanate 875-125 mg tablet 1 tab PO BID Qty: 20 RF: 0 tramadol 50 mg tablet 50 mg PO Q6H PRN (Reason: pain) Qty: 10 RF: 0 Referrals: Velma Todd ARNP [Primary Care Provider] -
[2019-04-13 21:32] VITALS: BP 142/78; PULSE 78; RESP 17; O2SAT 100
[2019-04-13 21:39] LABS: Add Manual Diff / Slide Review NO; Basophils Absolute Auto 100 /uL (0-100); Basophils Percent Auto 0.8 % (0-2); Eosinophils Absolute Auto 200 /uL (0-450); Eosinophils Percent Auto 2.7 % (2-4); Hematocrit 39.4 % (41-53); Hemoglobin 13.4 g/dL (13.5-17.5); Lymphocytes Absolute Auto 1700 /uL (1100-4500); Lymphocytes Percent Auto 23.5 % (25-40); Mean Corpuscular Hemoglobin 31.6 PG (26-34); Mean Corpuscular Volume 93.1 fL (80-100); Monocytes Absolute Auto 600 /uL (0-900); Monocytes Percent Auto 7.7 % (3-14); Neutrophils Absolute Auto 4700 /uL (1500-7000); Neutrophils Percent Auto 65.3 % (50-75); Platelet Count 290 X10^3/uL (150-400); Red Blood Cell Count 4.23 X10^6/uL (4.5-5.9); Red Cell Distribution Width 12.2 % (11.6-14.8); White Blood Cell Count 7.2 X10^3/uL (4.5-11.0)
[2019-04-13 21:51] LABS: Prothrombin Time 11.3 SECONDS (10.1-12.7)
[2019-04-13 21:54] LABS: PTT Partial Thromboplastin Tim 32 SECONDS (26.4-36.2)
[2019-04-13 21:55] LABS: Alanine Aminotransferase 29 IU/L (21-72); Albumin 4.3 g/dL (3.5-5.0); Albumin Globulin Ratio 1.5 (1.0-2.8); Alkaline Phosphatase 67 U/L (38-126); Aspartate Aminotransferase 26 IU/L (17-59); BUN Creatinine Ratio 14.3 (6-22); Bilirubin Total 0.4 mg/dL (0.2-1.3); Blood Urea Nitrogen 20 mg/dL (9-20); Calcium 9.3 mg/dL (8.4-10.2); Carbon Dioxide 28 mmol/L (22-32); Chloride 104 mmol/L (98-107); Creatine Kinase 220 U/L (55-170); Estimated Glomerular Filt Rate 54.6 mL/min (>60); Globulin 2.9 g/dL (1.7-4.1); Glucose 76 mg/dL (70-100); HEMOLYSIS < 15 (0-50); Lipase 66 U/L (23-300); Sodium 142 mmol/L (137-145); Total Protein 7.2 g/dL (6.3-8.2)
[2019-04-13 22:07] LABS: Troponin I < 0.012 ng/mL (0.01-0.034)
[2019-04-13] MEDS: HYDROMORPHONE 1 MG INJ 0.5 MG IV (22:07)
[2019-04-13 22:11] LABS: CKMB % Relative Index 1.6 % (1.5-5.0); Creatine Kinase MB 3.44 ng/mL (<2.37)
[2019-04-13] MEDS: ONDANSETRON 4 MG/2 ML INJ IV (22:12)
[2019-04-13 22:42] VITALS: BP 134/81; PULSE 71; RESP 13; O2SAT 97
[2019-04-13 23:56] LABS: Troponin I 0.013 ng/mL (0.01-0.034)
[2019-04-14 00:18] VITALS: BP 131/76; PULSE 79; RESP 14; O2SAT 99
== END 2019-04-14 00:18 | disposition home or self-care (01) ==
PROVIDERS: Emergency Provider Emergency Medicine; Family Provider Nurse Practitioner Gerontology; PCP Nurse Practitioner Gerontology
DX: R20.2 Paresthesia of skin (principal); R42 Dizziness and giddiness; Z82.41 Family history of sudden cardiac death
CPT/HCPCS: 36415; 36591; 71045; 80053; 82550; 82553; 83690; 84484; 85025; 85610; 85730; 93005; 96374; 96375; 99283; 99285; J1170; J2405

== ENCOUNTER 2019-06-23 21:43 | Emergency (ER) | payer BC, OTHER, SELFPAY ==
--- NOTE | 2019-06-23 21:49 | DI.RAD.S_ITS ---
PROCEDURE: XR CHEST 1V INDICATIONS: chest pain TECHNIQUE: One view of the chest was acquired. COMPARISON: [facility], CR, XR CHEST 1V, 04/13/2019, 21:12. FINDINGS: Surgical changes and devices: None. Lungs and pleura: Lungs are clear. No pleural effusions or pneumothorax. Mediastinum: Mediastinal contours appear normal. Heart size is normal. Bones and chest wall: No suspicious bony lesions. Overlying soft tissues appear unremarkable. IMPRESSION: No acute cardiopulmonary abnormalities. There are no imaging findings to explain patient's chest pain. Dictated by: Heath Burr M.D. on 06/24/2019 at 7:18 Approved by: Heath Burr M.D. on 06/24/2019 at 7:18
[2019-06-23 21:50] VITALS: BP 150/85; PULSE 78; RESP 12; TEMP 36.8; O2SAT 99; BMI 31.1
--- NOTE | 2019-06-23 21:50 | ED.CHESTPAIN ---
HPI - Chest Pain General Chief Complaint: Chest Pain Stated Complaint: HURTS TO BREATH Time Seen by Provider: 06/23/19 21:50 Source: patient Mode of arrival: ambulatory Limitations: no limitations History of Present Illness HPI narrative: This is a 48-year-old male comes in with left-sided chest pain on the lower ribs. Patient states it started yesterday. He woke up sore and has been increasing in pain. He has increased pain with movement but also with deep inspiration. He also notes it feels worse when he lays back. He states it almost felt like something was pulling in his chest earlier. He states that the pain has been slowly increasing. It has been constant and has not let up patient has not had any fevers. He has had a cough that is been productive but clear and sick for about 3 weeks. He has not had any nasal congestion. I had sinus symptoms. He describes his chest pain as pleuritic but also some spasms on occasions. Patient has not had any nausea or vomiting. No diaphoresis or clamminess. He has not had any issues with bowel movements or urination. No swelling in his lower extremities. He has not had similar symptoms in the past. He denies any rashes or skin changes. Patient takes Effexor 75 mg and blood pressure medication, he has had lithotripsy for kidney stones denies other surgeries. He denies tobacco, alcohol, no illicit other than THC. His father at age 44 of an [place], he has an older brother who is healthy. PCP is Dr. Don. Related Data Home Medications Medication Instructions Recorded Confirmed propranolol 40 mg PO QPM #0 03/21/17 cholecalciferol (vitamin D3) 2,000 unit PO QPM #0 07/26/17 [Vitamin D3] multivitamin [Multiple Vitamins] 1 tab PO QPM #0 07/26/17 naproxen 250 mg PO PRN PRN #0 07/26/17 albuterol sulfate [ProAir HFA] 12/17/18 diclofenac sodium 12/17/18 prednisone 12/17/18 Previous Rx's Medication Instructions Recorded hydrocodone-acetaminophen [[place]] 1 tab PO Q6HP PRN #10 tab 07/21/17 ondansetron [Zofran ODT] 4 mg SUBLINGUAL Q6HP PRN #10 odt 07/21/17 tamsulosin [Flomax] 0.4 mg PO QDAY #7 cap 07/21/17 tramadol 50 mg PO Q6H PRN #10 tab 05/13/18 amoxicillin-pot clavulanate 1 tab PO BID #20 tab 12/18/18 prednisone 60 mg PO DAILY #9 tab 12/18/18 doxycycline hyclate 100 mg PO BID #20 cap 06/24/19 hydrocodone-acetaminophen [[place]] 1 tab PO Q6H PRN #5 tab 06/24/19 Allergies Allergy/AdvReac Type Severity Reaction Status Date / Time morphine Allergy Intermediate Rash Verified 06/23/19 21:50 meperidine [From DEMEROL] Allergy Unknown Verified 06/23/19 21:50 Review of Systems Review of Systems ROS Unobtainable: All systems reviewed & are unremarkable except as noted in HPI and below Constitutional Constitutional: Denies chills, Denies fever(s), Denies lethargy and Denies weakness Cardiovascular Cardiovascular: Reports chest pain, Reports chest pain at rest, Reports chest pain with activity (with movement), Denies diaphoresis, Denies syncope, Denies rapid heart rate, Denies edema, Denies irregular heart rhythm, Denies lightheadedness, Denies palpitations, Denies dyspnea, Denies dyspnea on exertion and Denies orthopnea Respiratory Respiratory: Denies change in phlegm color, Denies chest congestion, Reports cough, Denies hemoptysis, Reports excessive phlegm production, Reports pain on inspiration, Denies dyspnea, Denies dyspnea on exertion, Denies stridor and Denies wheezing Gastrointestinal Gastrointestinal: Denies abdominal pain, Denies change in bowel habits, Denies diarrhea, Denies nausea and Denies vomiting Genitourinary Genitourinary: Denies hematuria, Denies dysuria, Denies flank pain, Denies urinary frequency, Denies urinary hesitancy, Denies urinary incontinence and Denies urinary urgency Musculoskeletal Musculoskeletal: Denies back pain, Denies numbness and Denies tingling Neurologic Neurologic: Denies syncope, Denies numbness, Denies tingling and Denies weakness Endocrine Endocrine: Denies palpitations Allergic/Immunologic Allergic/Immunologic: Denies wheezing [facility] Medical History (Updated 06/24/19 @ 00:10 by Elke Rosario DO) Chronic back pain (Acute) Hypertension (Acute) Kidney stones (Acute) Surgical History (Updated 06/23/19 @ 22:23 by Elke Rosario DO) History of lithotripsy (Acute) No pertinent past surgical history (Acute) Family History (Updated 06/23/19 @ 22:24 by Elke Rosario DO) Father Myocardial infarct Social History (Updated 06/23/19 @ 22:23 by Elke Rosario DO) Smoking Status: Never smoker alcohol intake: never substance use type: marijuana Family History (Updated 06/23/19 @ 22:24 by Elke Rosario DO) Father Myocardial infarct Social History (Updated 06/23/19 @ 22:23 by Elke Rosario DO) Smoking Status: Never smoker alcohol intake: never substance use type: marijuana Exam Initial Vital Signs Initial Vital Signs: Vital Signs Temperature 98.3 F 06/23/19 21:50 Pulse Rate 78 06/23/19 21:50 Respiratory Rate 12 06/23/19 21:50 Blood Pressure 150/85 H 06/23/19 21:50 Pulse Oximetry 99 06/23/19 21:50 GENERAL: Alert and oriented x three, well-nourished, well-appearing male in [id number] distress. HEENT: Head normocephalic, atraumatic, EOMI, pupils reactive, face symmetric, moist mucous membranes NECK: Supple, full range of motion CARDIOVASCULAR: Regular rate and rhythm without murmurs, rubs or gallops. Non reproducible chest pain. No rashes or skin change noted. No blisters or erythema. RESPIRATORY: Breath sounds equal bilaterally, no wheezes rales or rhonchi. ABDOMEN: Soft, nontender. Normoactive bowel sounds all 4 quadrants. No guarding or rebound, rigidity, no mass, no pulsatile mass. : No CVA tenderness EXTREMITIES: Normal range of motion, no clubbing or edema. 2+ pulses bilateral lower extremity. Neurovascularly intact NEUROLOGICAL: Cranial nerves II through XII grossly intact. Moving all extremities SKIN: Warm, dry, no petechiae, no rashes or lesions. Scores HEART Score Heart Score history: Moderately Suspicious Heart Score EKG: Normal Heart Score Age: 45-64 years old Heart Score risk factors: 1-2 risk factors Course Orders Ordered: ED Orders 06/23/19 21:47 Complete Blood Count AUTO DIFF Stat Comprehensive Metabolic Panel Stat D Dimer Stat Lipase Stat Partial Thromboplastin Time Stat Prothrombin Time INR Stat Troponin & CK Cardiac Panel Stat 06/23/19 21:49 XR chest 1V Stat EKG-12 Lead Stat 06/23/19 22:26 CT angio chest PE protocol Stat Discontinued Medications Hydrocodone Bitart/Acetaminophen (Vicodin Prepack) 1 bottle MISC SEEINSTR ONE Stop: 06/24/19 00:14 Last Admin: 06/24/19 00:22 Dose: 1 bottle Documented by: MINERVA Aspirin (Aspirin Chew) 324 mg PO NOW ONE Stop: 06/23/19 22:02 Last Admin: 06/23/19 22:05 Dose: 324 mg Documented by: PEGGYARRINGMAKENNA Doxycycline Hyclate (Vibramycin) 100 mg PO NOW ONE Stop: 06/24/19 00:14 Last Admin: 06/24/19 00:23 Dose: 100 mg Documented by: PEGGYARRINGMAKENNA Ketorolac Tromethamine (Toradol) 30 mg IV NOW ONE Stop: 06/23/19 23:23 Last Admin: 06/23/19 23:26 Dose: 30 mg Documented by: MINERVA Vital Signs Vital signs: Vital Signs - 8 hr 06/23/19 21:50 06/24/19 00:22 Temperature 98.3 F Pulse Rate 78 67 Respiratory Rate 12 17 Blood Pressure 150/85 H 128/84 Pulse Oximetry 99 97 MDM - Chest Pain Lab Data Attestation: I reviewed the patient's lab results. Result diagrams: 06/23/19 21:47 06/23/19 21:47 Labs: Lab Results 06/23/19 06/23/19 06/23/19 Range/Units 21:47 21:47 21:47 WBC 8.9 (4.5-11.0) X10^3/uL RBC 4.51 (4.5-5.9) X10^6/uL Hgb 14.2 (13.5-17.5) g/dL Hct 42.1 (41-53) % MCV 93.3 (80-100) fL MCH 31.6 (26-34) PG MCHC 33.9 (30-36) % RDW 12.3 (11.6-14.8) % Plt Count 296 (150-400) X10^3/uL Neut % (Auto) 65.1 (50-75) % Lymph % (Auto) 22.9 L (25-40) % George % (Auto) 7.5 (3-14) % Eos % (Auto) 3.7 (2-4) % Baso % (Auto) 0.8 (0-2) % Neut # (Auto) 5800 (0023-9511) /uL Lymph # (Auto) 2000 (7228-7616) /uL George # (Auto) 700 (0-900) /uL Eos # (Auto) 300 (0-450) /uL Baso # (Auto) 100 (0-100) /uL PT 10.5 (10.1-12.7) SECONDS INR 0.9 (0.9-1.3) APTT 32 (26.4-36.2) SECONDS D-Dimer (<230) ng/mL Sodium 141 (137-145) mmol/L Potassium 4.0 (3.4-5.1) mmol/L Chloride 103 (98-107) mmol/L Carbon Dioxide 29 (22-32) mmol/L BUN 21 H (9-20) mg/dL Creatinine 1.10 (0.66-1.25) mg/dL Estimated GFR > 60.0 (>60) mL/min BUN/Creatinine Ratio 19.1 (6-22) Glucose 79 (70-100) mg/dL Calcium 9.8 (8.4-10.2) mg/dL Total Bilirubin 0.4 (0.2-1.3) mg/dL AST 22 (17-59) IU/L ALT 19 L (21-72) IU/L Alkaline Phosphatase 77 (38-126) U/L Total Creatine Kinase 118 (55-170) U/L CK-MB (CK-2) 1.08 (<2.37) ng/mL CK-MB (CK-2) Rel Index 0.9 L (1.5-5.0) % Troponin I < 0.012 (0.01-0.034) ng/mL Total Protein 7.7 (6.3-8.2) g/dL Albumin 4.4 (3.5-5.0) g/dL Globulin 3.3 (1.7-4.1) g/dL Albumin/Globulin Ratio 1.3 (1.0-2.8) Lipase 58 (23-300) U/L 06/23/19 Range/Units 21:47 WBC (4.5-11.0) X10^3/uL RBC (4.5-5.9) X10^6/uL Hgb (13.5-17.5) g/dL Hct (41-53) % MCV (80-100) fL MCH (26-34) PG MCHC (30-36) % RDW (11.6-14.8) % Plt Count (150-400) X10^3/uL Neut % (Auto) (50-75) % Lymph % (Auto) (25-40) % George % (Auto) (3-14) % Eos % (Auto) (2-4) % Baso % (Auto) (0-2) % Neut # (Auto) (4763-3534) /uL Lymph # (Auto) (4594-5177) /uL George # (Auto) (0-900) /uL Eos # (Auto) (0-450) /uL Baso # (Auto) (0-100) /uL PT (10.1-12.7) SECONDS INR (0.9-1.3) APTT (26.4-36.2) SECONDS D-Dimer 304 H (<230) ng/mL Sodium (137-145) mmol/L Potassium (3.4-5.1) mmol/L Chloride (98-107) mmol/L Carbon Dioxide (22-32) mmol/L BUN (9-20) mg/dL Creatinine (0.66-1.25) mg/dL Estimated GFR (>60) mL/min BUN/Creatinine Ratio (6-22) Glucose (70-100) mg/dL Calcium (8.4-10.2) mg/dL Total Bilirubin (0.2-1.3) mg/dL AST (17-59) IU/L ALT (21-72) IU/L Alkaline Phosphatase (38-126) U/L Total Creatine Kinase (55-170) U/L CK-MB (CK-2) (<2.37) ng/mL CK-MB (CK-2) Rel Index (1.5-5.0) % Troponin I (0.01-0.034) ng/mL Total Protein (6.3-8.2) g/dL Albumin (3.5-5.0) g/dL Globulin (1.7-4.1) g/dL Albumin/Globulin Ratio (1.0-2.8) Lipase (23-300) U/L Imaging Data CT chest: Radiologist's impression: No central PE segmental pulmonary arterial branches are limited due to timing. Thoracic aorta is partially obscured by cardiac/motion artifact but is normal in caliber without evidence of aneurysm. Small left pleural effusion and left basilar atelectasis. No adenopathy. Scans of the upper abdomen demonstrate cholelithiasis with a contracted gallbladder. Faint 1.9 cm area of low attenuation in the left hepatic lobe which may represent an area of focal fatty infiltrate. ECG Data Attestation: I personally reviewed and interpreted this ECG as follows: Interpretation: Sinus rhythm with a rate of 79 P 136 QRS is 79 and QTC 395. He patient has Q-waves in [address] elevation or depression. MDM Narrative Medical decision making narrative: Discussed with patient he has had a cough for about 3 weeks that is been productive although clear. With pleural effusion and left basilar atelectasis with pain on that side is suspect he may have a pneumonia versus pleural effusion. There is no central PE. Patient's pain was only mildly improved with Toradol. We discuss he throws up with Percocet but has done fine with Vicodin or [place]. Plan to start him on oral antibiotics, a short course of narcotic pain medication and to follow up with primary care. We discussed that he needs further imaging in the future based on his CT findings. Discharge Plan Departure Patient Disposition: Home Clinical Impression: Pleural effusion, Left-sided chest pain Discharge Date/Time: 06/24/19 00:24 Instructions: DI for Pleural Effusion Activity Restrictions/Additional Instructions: Follow up with primary care in the next week for recheck. You should have repeat imaging to make sure your pleural effusion has resolved. Take antibiotics until completely gone. May take ibuprofen up to 800 mg every 8 hours as needed for pain. Take medications as prescribed, this medication can make you sleepy do not drive, perform hazardous activities or make any major decisions while taking them. Return to the emergency department for fevers greater than 100.4 F, new shortness of breath, rapidly worsening symptoms, lightheadedness or passing-out, persistent vomiting, black or bloody stools or other new or concerning symptoms. Prescriptions: New doxycycline hyclate 100 mg capsule 100 mg PO BID Qty: 20 RF: 0 hydrocodone-acetaminophen [[place]] 5-325 mg tablet 1 tab PO Q6H PRN (Reason: pain) Qty: 5 RF: 0 No Action propranolol 40 MG tablet 40 mg PO QPM Qty: 0 RF: 0 hydrocodone-acetaminophen [[place]] 5 MG/325 MG tablet 1 tab PO Q6HP PRNQty: 10 RF: 0 tamsulosin [Flomax] 0.4 MG capsule,extended release 24hr 0.4 mg PO QDAY Qty: 7 RF: 0 ondansetron [Zofran ODT] 4 MG tablet,disintegrating 4 mg Sublingual Q6HP PRNQty: 10 RF: 0 multivitamin [Multiple Vitamins] 1 EACH tablet 1 tab PO QPM Qty: 0 RF: 0 naproxen 250 MG tablet 250 mg PO PRN PRNQty: 0 RF: 0 cholecalciferol (vitamin D3) [Vitamin D3] 2,000 UNIT capsule 2,000 unit PO QPM Qty: 0 RF: 0 prednisone 20 mg tablet RF: 0 ProAir HFA 90 mcg/actuation HFA aerosol inhaler RF: 0 diclofenac sodium 75 mg tablet,delayed release (DR/EC) RF: 0 prednisone 20 mg tablet 60 mg PO DAILY Qty: 9 RF: 0 amoxicillin-pot clavulanate 875-125 mg tablet 1 tab PO BID Qty: 20 RF: 0 tramadol 50 mg tablet 50 mg PO Q6H PRN (Reason: pain) Qty: 10 RF: 0 Referrals: Velma Todd ARNP [Primary Care Provider] -
[2019-06-23 22:05] LABS: Add Manual Diff / Slide Review NO; Basophils Absolute Auto 100 /uL (0-100); Basophils Percent Auto 0.8 % (0-2); Eosinophils Absolute Auto 300 /uL (0-450); Eosinophils Percent Auto 3.7 % (2-4); Hematocrit 42.1 % (41-53); Hemoglobin 14.2 g/dL (13.5-17.5); Lymphocytes Absolute Auto 2000 /uL (1100-4500); Lymphocytes Percent Auto 22.9 % (25-40); Mean Corpuscular HGB Conc 33.9 % (30-36); Mean Corpuscular Hemoglobin 31.6 PG (26-34); Mean Corpuscular Volume 93.3 fL (80-100); Monocytes Absolute Auto 700 /uL (0-900); Monocytes Percent Auto 7.5 % (3-14); Neutrophils Absolute Auto 5800 /uL (1500-7000); Neutrophils Percent Auto 65.1 % (50-75); Platelet Count 296 X10^3/uL (150-400); Red Blood Cell Count 4.51 X10^6/uL (4.5-5.9); Red Cell Distribution Width 12.3 % (11.6-14.8); White Blood Cell Count 8.9 X10^3/uL (4.5-11.0)
[2019-06-23] MEDS: ASPIRIN 81 MG CHEW TAB 324 MG PO (22:05)
[2019-06-23 22:13] LABS: INR 0.9 (0.9-1.3); Prothrombin Time 10.5 SECONDS (10.1-12.7)
[2019-06-23 22:16] LABS: Alanine Aminotransferase 19 IU/L (21-72); Albumin 4.4 g/dL (3.5-5.0); Albumin Globulin Ratio 1.3 (1.0-2.8); Alkaline Phosphatase 77 U/L (38-126); Aspartate Aminotransferase 22 IU/L (17-59); BUN Creatinine Ratio 19.1 (6-22); Bilirubin Total 0.4 mg/dL (0.2-1.3); Blood Urea Nitrogen 21 mg/dL (9-20); Calcium 9.8 mg/dL (8.4-10.2); Carbon Dioxide 29 mmol/L (22-32); Chloride 103 mmol/L (98-107); Creatine Kinase 118 U/L (55-170); Estimated Glomerular Filt Rate > 60.0 mL/min (>60); Globulin 3.3 g/dL (1.7-4.1); Glucose 79 mg/dL (70-100); HEMOLYSIS < 15 (0-50); Lipase 58 U/L (23-300); PTT Partial Thromboplastin Tim 32 SECONDS (26.4-36.2); Sodium 141 mmol/L (137-145); Total Protein 7.7 g/dL (6.3-8.2)
[2019-06-23 22:17] LABS: D Dimer 304 ng/mL (<230)
--- NOTE | 2019-06-23 22:26 | DI.CT.S_ITS ---
PROCEDURE: CT ANGIO CHEST PE PROTOCOL INDICATIONS: left sided chest pain, pleuritic TECHNIQUE: After the administration of intravenous contrast, 2 mm thick sections acquired from the pulmonary apices to the posterior costophrenic angles. 3-dimensional maximum intensity projection (MIP) coronal and sagittal reformats were then acquired through the thorax. For radiation dose reduction, the following was used: automated exposure control, adjustment of mA and/or kV according to patient size. COMPARISON: [facility], CR, XR CHEST 1V, 06/23/2019, 21:56. FINDINGS: Image quality: Study limited secondary to timing of contrast bolus as well as mild motion artifact. Pulmonary arteries: Within the limitations of this examination, no large central pulmonary embolus or pulmonary emboli to the level of the proximal segmental pulmonary arteries. Pulmonary arteries are normal in size. Lungs and pleura: Small left pleural effusion with associated compressive atelectasis of the left lung base. Mild lingular atelectasis versus scarring. Lungs are otherwise clear. No pleural effusions or pneumothorax. Central and peripheral airways are patent. Mediastinum: Heart size is normal, without pericardial effusion. Scattered atherosclerotic calcifications of the coronary arteries are noted. No mediastinal or hilar adenopathy. Thoracic aorta is normal in caliber and enhancement. Esophagus is normal in caliber, without hiatal hernia. Bones and chest wall: No suspicious bony lesions. Ribs and thoracic spine appear intact throughout. Thyroid gland is unremarkable. No axillary or supraclavicular adenopathy. Abdomen: There is a 1.9 x 1.1 cm of focal hypoattenuation involving the posterior margin of the medial segment of the left hepatic lobe. Suggestion of possible peripheral nodular enhancement. Multiple small gallstones are noted near the gallbladder neck and proximal cystic duct. The gallbladder is decompressed. Remainder of the visualized upper abdominal solid organs appear normal in the early arterial phase of enhancement. IMPRESSION: 1. Limited evaluation of the pulmonary arteries due to timing of contrast bolus and mild motion artifact. No evidence for central pulmonary embolus or pulmonary emboli to the level of the proximal segmental pulmonary arteries. 2. Small left pleural effusion with associated atelectasis. Lungs are otherwise clear. 3. A 1.9 x 1.1 cm focal hypodense lesion in the posterior margin of the left hepatic lobe, medial segment which may represent focal fatty infiltration versus possible hemangioma given suggestion of mild peripheral nodular enhancement. This is incompletely evaluated on this study and further characterization with contrast-enhanced MRI or CT can be considered. 4. Cholelithiasis without CT evidence for acute cholecystitis. No significant discrepancy with the lieutenant shift supervisor radiology preliminary report. Dictated by: Heath Burr M.D. on 06/24/2019 at 9:20 Approved by: Heath Burr M.D. on 06/24/2019 at 9:31
[2019-06-23 22:28] LABS: Troponin I < 0.012 ng/mL (0.01-0.034)
[2019-06-23 22:32] LABS: CKMB % Relative Index 0.9 % (1.5-5.0); Creatine Kinase MB 1.08 ng/mL (<2.37)
[2019-06-23] MEDS: KETOROLAC 60 MG/2 ML VIAL 30 MG IV (23:26)
[2019-06-24 00:22] VITALS: BP 128/84; PULSE 67; RESP 17; O2SAT 97
[2019-06-24] MEDS: HYDROCODONE/ACET 5/325 PREPACK 1 BOTTLE MISC (00:22)
[2019-06-24] MEDS: DOXYCYCLINE HYCLATE 100 MG TABLET PO (00:23)
== END 2019-06-24 00:24 | disposition home or self-care (01) ==
PROVIDERS: Emergency Provider Emergency Medicine; Family Provider Nurse Practitioner Gerontology; PCP Nurse Practitioner Gerontology
DX: J90 Pleural effusion, not elsewhere classified (principal); R07.89 Other chest pain
CPT/HCPCS: 36591; 71045; 71275; 80053; 82550; 82553; 83690; 84484; 85025; 85379; 85610; 85730; 93005; 93010; 96374; 99283; 99285; J1885; Q9967

== ENCOUNTER 2020-08-14 20:11 | Emergency (ER) | payer OTHER, MEDICAID, SELFPAY ==
[2020-08-14 20:19] VITALS: BP 135/73; PULSE 83; RESP 18; TEMP 36.9; O2SAT 98; BMI 30.7
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
== END 2020-08-14 21:39 | disposition home or self-care (01) ==
PROVIDERS: Emergency Provider Emergency Medicine; Family Provider Nurse Practitioner Gerontology; PCP Nurse Practitioner Gerontology
DX: S60.222A Contusion of left hand, initial encounter (principal); W21.89XA Striking against or struck by other sports equipment, initial encounter
CPT/HCPCS: 73130; 99283

== ENCOUNTER 2020-09-19 23:40 | Observation (INO) | payer OTHER, MEDICAID, SELFPAY ==
[2020-09-19 23:50] VITALS: BP 157/101; PULSE 97; RESP 18; TEMP 36.8; O2SAT 95; BMI 30.7
[2020-09-20] VITALS (19 sets, daily range): BP systolic 114–153; BP diastolic 61–102; PULSE 62–86; RESP 10–24; TEMP 36–37.2; O2SAT 88–97; BMI 30.7
[2020-09-20] MEDS: SODIUM CHLORIDE 0.9% 1,000 ML 1000 ML IV (00:07)
[2020-09-20] MEDS: ONDANSETRON 4 MG/2 ML INJ IV (00:07)
[2020-09-20] MEDS: PANTOPRAZOLE 40 MG VIAL IV (00:07)
--- NOTE | 2020-09-20 00:16 | ED.ABDPAIN ---
HPI - Abdominal Pain General Chief Complaint: Abdominal Pain Stated Complaint: Nausea,headache, diarhea all day Time Seen by Provider: 09/19/20 23:51 Source: patient Mode of arrival: Ambulatory Limitations: no limitations History of Present Illness HPI narrative: 50-year-old male nonsmoker with extensive history of kidney stones presents with a chief complaint a waking with some generalized abdominal pain and over the course the day developing increasing nausea which resulted in at least 1 episode of emesis and multiple episodes of loose stools. He denies any blood or dark coloration to his emesis or diarrhea. He states that the pain seems to be better when he lays down remain still and worsens with motion, though he does mention there were a few episodes during the day that seemed to ramp up without any specific provocation. He denies runny nose, sore throat or cough. He has had no fever or chills. He denies any dysuria, frequency or urgency. MD complaint: abdominal pain Onset (ago): hour(s) Pain Consistency: intermittent Location: diffuse Severity: moderate Quality: cramping and aching Radiation: none Relieving factors: rest Exacerbating factors: movement Associated symptoms: nausea, vomiting and diarrhea Related Data Home Medications Medication Instructions Recorded Confirmed cholecalciferol (vitamin D3) 2,000 unit PO QPM #0 07/26/17 09/20/20 [Vitamin D3] naproxen 250 mg PO PRN PRN #0 07/26/17 09/20/20 albuterol sulfate [ProAir HFA] 2 puff INHALATION Q4-6H PRN 12/17/18 09/20/20 Allergies Allergy/AdvReac Type Severity Reaction Status Date / Time morphine Allergy Intermediate Rash Verified 09/20/20 00:13 meperidine [From DEMEROL] Allergy Unknown Verified 09/20/20 00:13 metoclopramide [From Reglan] AdvReac Anxiety Verified 09/20/20 21:54 Review of Systems Constitutional Constitutional: Denies chills, Denies fatigue, Denies fever(s), Denies frequent falls, Denies lethargy and Denies weakness Eyes Eyes: Denies change in vision, Denies eye discharge, Denies irritation and Denies loss of vision ENT Ears, Nose, Mouth, and Throat: Denies change in voice, Denies dizziness, Denies neck pain, Denies sore throat and Denies throat swelling Cardiovascular Cardiovascular: Denies chest pain, Denies irregular heart rhythm, Denies lightheadedness, Denies palpitations, Denies dyspnea, Denies dyspnea on exertion and Denies orthopnea Respiratory Respiratory: Denies cough, Denies dyspnea, Denies dyspnea on exertion and Denies wheezing Gastrointestinal Gastrointestinal: Reports abdominal pain, Denies change in bowel habits, Reports diarrhea, Reports nausea and Reports vomiting Musculoskeletal Musculoskeletal: Denies neck pain and Denies numbness Integumentary/Breasts Skin/Breast: Denies pruritus, Denies erythema, Denies rash and Denies wounds Neurologic Neurologic: Denies behavioral changes, Denies confusion, Denies dizziness, Denies frequent falls, Denies loss of vision, Denies numbness and Denies weakness Psychiatric Psychiatric: Denies anxiety, Denies behavioral changes, Denies confusion, Denies depression, Denies homicidal ideation and Denies suicidal ideation Endocrine Endocrine: Denies fatigue, Denies flushing and Denies palpitations Hematologic/Lymphatic Hematologic/Lymphatic: Denies easy bruising Allergic/Immunologic Allergic/Immunologic: Denies urticaria, Denies throat swelling and Denies wheezing Patient History Medical History Chronic back pain Hypertension Kidney stones Surgical History History of lithotripsy Family History Father Myocardial infarct Mother Alcoholism Liver disease Social History household members: spouse and children Smoking Status: Never smoker alcohol intake: never substance use type: marijuana Smoking Status: Never smoker alcohol intake frequency: holidays/special occasions only Substance Use Type: marijuana Exam Narrative Exam Narrative: GENERAL: [50] year old patient appears stated age. Well-nourished, well-developed patient, in mild distress. HEAD: Atraumatic. Normocephalic. EYES: Pupils equal round and reactive. Extraocular motions intact. No scleral icterus. No injection or drainage. ENT: Nose without bleeding, purulent drainage. Throat without erythema, tonsillar hypertrophy or exudate. Airway patent. NECK: Trachea midline. Non tender CARDIOVASCULAR: Regular rate and rhythm without murmurs, gallops, or rubs. RESPIRATORY: Clear to auscultation. Breath sounds equal bilaterally. No wheezes, rales, or rhonchi. GASTROINTESTINAL: Abdomen soft, non-tender, nondistended. EXTREMITIES: No edema or joint tenderness. BACK: Nontender without deformity or crepitance. No flank tenderness. NEURO: AOx3. SKIN: No rash or erythema of visible areas Initial Vital Signs Initial Vital Signs: Vital Signs Temperature 98.3 F 09/19/20 23:50 Pulse Rate 97 H 09/19/20 23:50 Respiratory Rate 18 09/19/20 23:50 Blood Pressure 157/101 H 09/19/20 23:50 Pulse Oximetry 95 09/19/20 23:50 Course Orders Ordered: Acetaminophen (Acetaminophen 325 Mg Tablet) 650 mg PO Q4HR PRN PRN Reason: Fever/Mild Pain (1-3) Last Admin: 09/20/20 14:29 Dose: 650 mg Documented by: LINNETTE Al Hydrox/Mg Hydrox/Simethicone (Mag Hydrox/Alum/Simeth 30 Ml Udc) 30 ml PO Q6HR PRN PRN Reason: Dyspepsia Last Admin: 09/20/20 17:05 Dose: 30 ml Documented by: PINO Bismuth Subsalicylate (Bismuth Subsalicylate 525 Mg/30 Ml Susp) 30 ml PO QID PRN PRN Reason: Dyspepsia Last Admin: 09/20/20 14:31 Dose: 30 ml Documented by: LINNETTE Sodium Chloride (Normal Saline 0.9%) 1,000 mls @ 125 mls/hr IV CONT TANNA Last Admin: 09/20/20 18:58 Dose: 125 mls/hr Documented by: Infusion: 09/20/20 18:39 Dose: 125 mls/hr Documented by: Admin: 09/20/20 10:39 Dose: 125 mls/hr Documented by: Infusion: 09/20/20 10:39 Dose: 125 mls/hr Documented by: Admin: 09/20/20 07:34 Dose: 125 mls/hr Documented by: LINNETTE Naloxone HCl (Naloxone 0.4 Mg/Ml Vial) 0.2 mg IV Q2MIN PRN PRN Reason: Opiate Reversal Ondansetron HCl (Ondansetron 4 Mg/2 Ml Inj) 4 mg IV Q8HR PRN PRN Reason: Nausea And Vomiting Ondansetron HCl (Ondansetron 4 Mg/2 Ml Inj) 4 mg IV Q6HR PRN PRN Reason: Nausea And Vomiting Pantoprazole Sodium (Pantoprazole 20 Mg Tablet) 20 mg PO 0700,2100 TANNA Last Admin: 09/20/20 21:08 Dose: 20 mg Documented by: PINO Discontinued Medications Acetaminophen (Acetaminophen 650 Mg Supp) 650 mg TN Q4HR PRN PRN Reason: Fever/Mild Pain (1-3) Diphenhydramine HCl (Diphenhydramine 50 Mg/Ml Vial) 25 mg IV NOW ONE Stop: 09/20/20 04:36 Last Admin: 09/20/20 04:40 Dose: 25 mg Documented by: ANTONIO Diphenhydramine HCl (Diphenhydramine 50 Mg/Ml Vial) 25 mg IV NOW ONE Stop: 09/20/20 05:38 Last Admin: 09/20/20 05:41 Dose: 25 mg Documented by: ANTONIO Hydromorphone HCl (Hydromorphone 0.5 Mg Inj) 0.5 mg IV NOW ONE Stop: 09/20/20 03:21 Last Admin: 09/20/20 03:23 Dose: 0.5 mg Documented by: ANTONIO Sodium Chloride (Normal Saline 0.9%) 1,000 mls @ 1,000 mls/hr IV BOLUS ONE Stop: 09/20/20 00:55 Last Infusion: 09/20/20 01:53 Dose: 0 mls/hr Documented by: Admin: 09/20/20 00:07 Dose: 1,000 mls/hr Documented by: SAVANNA Sodium Chloride (Normal Saline 0.9%) 1,000 mls @ 150 mls/hr IV CONT TANNA Last Infusion: 09/20/20 07:22 Dose: 0 mls/hr Documented by: Admin: 09/20/20 03:00 Dose: 150 mls/hr Documented by: ANTONIO Metoclopramide HCl (Metoclopramide 10 Mg/2 Ml Inj) 10 mg IV NOW ONE Stop: 09/20/20 04:08 Last Admin: 09/20/20 04:16 Dose: 10 mg Documented by: ANTONIO Metoclopramide HCl (Metoclopramide 10 Mg/2 Ml Inj) 5 mg IV Q6HR PRN PRN Reason: Nausea And Vomiting Ondansetron HCl (Ondansetron 4 Mg/2 Ml Inj) 4 mg IV NOW ONE Stop: 09/19/20 23:57 Last Admin: 09/20/20 00:07 Dose: 4 mg Documented by: SAVANNA Pantoprazole Sodium (Pantoprazole 40 Mg Vial) 40 mg IV NOW ONE Stop: 09/19/20 23:57 Last Admin: 09/20/20 00:07 Dose: 40 mg Documented by: SAVANNA Simethicone (Simethicone 80 Mg Tablet) 80 mg PO QID PRN PRN Reason: Flatulence Last Admin: 09/20/20 13:21 Dose: 80 mg Documented by: LINNETTE Reevaluation(s) Reevaluation #1: patient feeling a bit antsy after the reglan. Benadryl ordered Consultations Consultation #1: discussed with general surgery (Myrna) who suggests fluids, pain control, antiemetics, NPO, no need for NG at this point in time. Admit to hospitalist Consultation #2: hospitalist happy to accept. Vital Signs Vital signs: Vital Signs - 8 hr 09/19/20 23:50 09/20/20 00:40 09/20/20 01:02 Temperature 98.3 F Pulse Rate 97 H 78 86 Respiratory Rate 18 Blood Pressure 157/101 H 150/92 H Pulse Oximetry 95 94 94 09/20/20 01:30 09/20/20 02:00 09/20/20 02:30 Temperature Pulse Rate 75 75 72 Respiratory Rate 18 19 Blood Pressure 138/90 150/88 H 141/86 H Pulse Oximetry 95 94 96 MDM - Abdominal Pain Lab Data Result diagrams: 09/20/20 07:37 09/20/20 07:37 Labs: Lab Results 09/19/20 09/19/20 09/20/20 Range/Units 23:59 23:59 00:50 WBC 12.8 H (4.5-11.0) X10^3/uL RBC 5.00 (4.5-5.9) X10^6/uL Hgb 15.6 (13.5-17.5) g/dL Hct 46.5 (41-53) % MCV 92.9 (80-100) fL MCH 31.1 (26-34) PG MCHC 33.5 (30-36) % RDW 12.5 (11.6-14.8) % Plt Count 336 (150-400) X10^3/uL Neut % (Auto) 77.3 H (50-75) % Lymph % (Auto) 12.5 L (25-40) % [place] % (Auto) 5.7 (3-14) % Eos % (Auto) 4.0 (2-4) % Baso % (Auto) 0.5 (0-2) % Neut # (Auto) 9900 H (8682-2871) /uL Lymph # (Auto) 1600 (5570-0645) /uL [place] # (Auto) 700 (0-900) /uL Eos # (Auto) 500 H (0-450) /uL Baso # (Auto) 100 (0-100) /uL Sodium 138 (137-145) mmol/L Potassium 4.3 (3.4-5.1) mmol/L Chloride 106 (98-107) mmol/L Carbon Dioxide 26 (22-32) mmol/L BUN 25 H (9-20) mg/dL Creatinine 1.14 (0.66-1.25) mg/dL Estimated GFR > 60.0 (>60) mL/min BUN/Creatinine Ratio 21.9 (6-22) Glucose 105 H (70-100) mg/dL Calcium 9.6 (8.4-10.2) mg/dL Total Bilirubin 0.8 (0.2-1.3) mg/dL AST 35 (17-59) IU/L ALT 35 (<50) IU/L Alkaline Phosphatase 71 (38-126) U/L Total Protein 8.2 (6.3-8.2) g/dL Albumin 4.6 (3.5-5.0) g/dL Globulin 3.6 (1.7-4.1) g/dL Albumin/Globulin Ratio 1.3 (1.0-2.8) Lipase 268 (23-300) U/L Urine RBC None seen (0-5/HPF) Urine WBC None seen (0-5/HPF) Calcium Oxalate Crystal Occasional H Amorphous Sediment 4+ Urine Bacteria None seen (None) Ur Culture Indicated? Cult not indicated COVID-19 PCR (Negative) 09/20/20 Range/Units 02:50 WBC (4.5-11.0) X10^3/uL RBC (4.5-5.9) X10^6/uL Hgb (13.5-17.5) g/dL Hct (41-53) % MCV (80-100) fL MCH (26-34) PG MCHC (30-36) % RDW (11.6-14.8) % Plt Count (150-400) X10^3/uL Neut % (Auto) (50-75) % Lymph % (Auto) (25-40) % [place] % (Auto) (3-14) % Eos % (Auto) (2-4) % Baso % (Auto) (0-2) % Neut # (Auto) (2154-2053) /uL Lymph # (Auto) (7149-4548) /uL [place] # (Auto) (0-900) /uL Eos # (Auto) (0-450) /uL Baso # (Auto) (0-100) /uL Sodium (137-145) mmol/L Potassium (3.4-5.1) mmol/L Chloride (98-107) mmol/L Carbon Dioxide (22-32) mmol/L BUN (9-20) mg/dL Creatinine (0.66-1.25) mg/dL Estimated GFR (>60) mL/min BUN/Creatinine Ratio (6-22) Glucose (70-100) mg/dL Calcium (8.4-10.2) mg/dL Total Bilirubin (0.2-1.3) mg/dL AST (17-59) IU/L ALT (<50) IU/L Alkaline Phosphatase (38-126) U/L Total Protein (6.3-8.2) g/dL Albumin (3.5-5.0) g/dL Globulin (1.7-4.1) g/dL Albumin/Globulin Ratio (1.0-2.8) Lipase (23-300) U/L Urine RBC (0-5/HPF) Urine WBC (0-5/HPF) Calcium Oxalate Crystal Amorphous Sediment Urine Bacteria (None) Ur Culture Indicated? COVID-19 PCR Negative (Negative) Point of care testing: Urine Dip Bedside Urine Glucose Negative Bedside Urine Bilirubin - Negative Bedside Urine Ketone - Negative Urine Specific [place] 1.030 Bedside Urine Occult Blood - Negative Bedside Urine pH 6 Bedside Urine Protein + 30 Bedside Urine Urobilinogen - Negative Bedside Urine Nitrite - Negative Bedside Urine Leukocytes - Negative Esterase Imaging Data CT scan - abdomen/pelvis: Radiologist's Impression: Increase fluids the bowel, dilated loops in the left abdomen with air-fluid levels and associated mesenteric edema, no discrete transition point, ileus versus small-bowel obstruction Discharge Plan Departure Patient Disposition: Admitted as Observation Clinical Impression: Partial obstruction of small intestine Admit Date/Time: 09/20/20 06:51 Admit Provider: Matt Vogel
[2020-09-20 00:20] LABS: Add Manual Diff / Slide Review NO; Basophils Absolute Auto 100 /uL (0-100); Basophils Percent Auto 0.5 % (0-2); Eosinophils Absolute Auto 500 /uL (0-450); Hematocrit 46.5 % (41-53); Hemoglobin 15.6 g/dL (13.5-17.5); Lymphocytes Absolute Auto 1600 /uL (1100-4500); Lymphocytes Percent Auto 12.5 % (25-40); Mean Corpuscular HGB Conc 33.5 % (30-36); Mean Corpuscular Hemoglobin 31.1 PG (26-34); Mean Corpuscular Volume 92.9 fL (80-100); Monocytes Absolute Auto 700 /uL (0-900); Monocytes Percent Auto 5.7 % (3-14); Neutrophils Absolute Auto 9900 /uL (1500-7000); Neutrophils Percent Auto 77.3 % (50-75); Platelet Count 336 X10^3/uL (150-400); Red Cell Distribution Width 12.5 % (11.6-14.8); White Blood Cell Count 12.8 X10^3/uL (4.5-11.0)
[2020-09-20 00:26] LABS: Alanine Aminotransferase 35 IU/L (<50); Albumin 4.6 g/dL (3.5-5.0); Albumin Globulin Ratio 1.3 (1.0-2.8); Alkaline Phosphatase 71 U/L (38-126); Aspartate Aminotransferase 35 IU/L (17-59); BUN Creatinine Ratio 21.9 (6-22); Bilirubin Total 0.8 mg/dL (0.2-1.3); Blood Urea Nitrogen 25 mg/dL (9-20); Calcium 9.6 mg/dL (8.4-10.2); Carbon Dioxide 26 mmol/L (22-32); Chloride 106 mmol/L (98-107); Estimated Glomerular Filt Rate > 60.0 mL/min (>60); Globulin 3.6 g/dL (1.7-4.1); Glucose 105 mg/dL (70-100); HEMOLYSIS < 15 (0-50); Lipase 268 U/L (23-300); Potassium 4.3 mmol/L (3.4-5.1); Sodium 138 mmol/L (137-145); Total Protein 8.2 g/dL (6.3-8.2)
--- NOTE | 2020-09-20 01:23 | DI.CT.S_ITS ---
PROCEDURE: CT ABDOMEN PELVIS W CON INDICATIONS: severe abdominal pain with nausea, vomiting TECHNIQUE: After the administration of intravenous contrast, 5 mm thick sections acquired from the diaphragm to the symphysis. 5 mm coronal and sagittal reformats were acquired. For radiation dose reduction, the following was used: automated exposure control, adjustment of mA and/or kV according to patient size. COMPARISON: [facility], CT, KIDNEY/ URETER/BLADDER, 07/21/2017, 21:44. FINDINGS: Image quality: Excellent. ABDOMEN: Lung bases: Lung bases are clear. Heart size is normal. Solid organs: Mild hepatic steatosis. Liver is normal in size and enhancement. Gallbladder contains gallstones. Biliary system is non dilated. Pancreas enhances normally. Spleen is normal in size and enhancement. No adrenal nodules. Kidneys demonstrate normal size and enhancement, without hydronephrosis. Peritoneum and bowel: Stomach is mildly distended. Fluid-filled small and colon loops are noted. Proximal small intestine is mildly distended measuring up to 3.5 cm. There are a few air-fluid levels. No transitional point identified. Normal appendix. There are multiple colonic diverticula. No CT findings to suggest diverticulitis. There is a small amount of free fluid. No free air. Nodes and vessels: No retroperitoneal or mesenteric adenopathy by size criteria. Aorta and inferior vena cava are normal in size. Miscellaneous: No ventral hernias. PELVIS: Genitourinary: Bladder wall may be mildly thickened but bladder is partially contracted. Miscellaneous: No inguinal adenopathy. Bilateral fat containing inguinal hernias. Bones: No suspicious bony lesions. No vertebral body compression fractures. Moderate to severe degenerative disc disease at L5-S1. IMPRESSION: 1. Stomach is mildly distended. Fluid-filled small and colon loops with mild proximal small intestine dilation and a few air-fluid levels. No transitional point identified. There is a small amount of free fluid. No free air. The CT findings are most compatible with a gastroenteritis and ileus. Early small bowel obstruction cannot be excluded. 2. Diverticulosis without acute diverticulitis. 3. Cholelithiasis. No significant discrepancy with the prior authorization nurse radiology preliminary report. Dictated by: Aramis Harrington M.D. on 09/20/2020 at 7:53 Approved by: Aramis Hrarington M.D. on 09/20/2020 at 8:01
[2020-09-20 02:43] LABS: Bacteria Urine None Seen; RBC Urine None Seen (0-5/HPF); WBC Urine None Seen (0-5/HPF)
[2020-09-20] MEDS: SODIUM CHLORIDE 0.9% 1,000 ML 150 ML IV (03:00)
[2020-09-20 03:12] LABS: COVID19 -Nasal RAPID Negative (Negative)
[2020-09-20] MEDS: HYDROMORPHONE 0.5 MG INJ IV (03:23)
[2020-09-20 03:27] LABS: Amorphous Sediment Urine 4+
[2020-09-20 03:28] LABS: Calcium Oxalate Crystals Urine Occasional
[2020-09-20 03:31] LABS: Culture Indicated Urine Cult Not Indicated
[2020-09-20] MEDS: METOCLOPRAMIDE 10 MG/2 ML INJ IV (04:16)
--- NOTE | 2020-09-20 04:36 | PC.NURSE ---
Pt reported nausea, Reglan given as ordered at 0415, at 04[address] Pt [address] feeling anxious. Dr[address] Santana notified.
[2020-09-20] MEDS: diphenhydrAMINE 50 MG/ML VIAL 25 MG IV ×2 (04:40→05:41)
--- NOTE | 2020-09-20 05:56 | P.HP_ITS ---
History of Present Illness History of Present Illness Date Patient Seen: 09/20/20 Time Patient Seen: 05:56 Chief complaint: Nausea,headache, diarhea all day Narrative: Mr. Javan Galo is a 50-year-old male with a past medical history significant for hypertension, chronic low back pain and kidney stones who presents to the ER with worsening abdominal pain. The patient describes an onset of crampy abdominal pain yesterday morning upon waking. The pain was progressive throughout the day developed watery stools last night. And has progressed to nausea with vomiting. His pain is increased with activity and decreased with rest. He denies complaints of a recent cold or flu symptoms, fevers or chills known COVID-19 exposure. He denies complaints of headaches or dizziness nasal congestion or sore throat. He has no chest pain or palpitations, shortness of breath or cough. He does have intermittent wheezing related allergies for which she uses an albuterol inhaler as needed. He has generalized abdominal pain however more prominent on the left abdomen greater in the left lower quadrant than the left upper quadrant. He describes ongoing c rampy abdominal pain with episodes of nausea and vomiting on getting up to the bathroom in the ER. The patient received Reglan to which she had an untoward response treated with Benadryl. Patient otherwise denies urinary difficulties and has generalized musculoskeletal pain which she treats with naproxen 250 mg twice daily. Upon arrival ER the patient is afebrile with temperature 98.3?, heart rate 97, blood pressure 157/101, respirations 18 saturating 95% on room air. CT of the abdomen pelvis is obtained which finds increased fluid within the bowel, small bowel loops left abdomen with have air-fluid levels and mesenteric edema. No discrete transition point identified. On laboratory analysis the patient has white count of 12.8, hemoglobin of 15.6, hematocrit 46.5 and platelets 336. His electrolytes are all within normal limits he has a BUN of 25 and creatinine 1.14. His nonfasting glucose is 105. His liver functions are all within normal limits and has an albumin of 4.6. His lipase is 268. Urinalysis obtained which finds no infection with occasional calcium oxalate crystals. COVID screening is negative. General surgery is contacted and Dr. Norris agrees to consult. The luis anaya is admitted to the medicine service for partial bowel obstruction. PCP: Velma Todd Patient History Medical History Chronic back pain Hypertension Kidney stones Surgical History (Updated 09/20/20 @ 06:06 by IAIN Bourgeois) History of lithotripsy Family & Social History Family History (Updated 09/20/20 @ 06:08 by IAIN Bourgeois) Father Myocardial infarct Mother Alcoholism Liver disease Safety & Behavioral: Feels Safe in Current Yes Environment Tobacco & Substance use: Smoking Status Never smoker alcohol intake never alcohol intake frequency holiday/special occasion Substance Use Type marijuana Meds Home Medications and Allergies Home Medications Medication Instructions Recorded Confirmed Type cholecalciferol (vitamin D3) 2,000 unit PO QPM #0 07/26/17 09/20/20 History [Vitamin D3] naproxen 250 mg PO PRN PRN #0 07/26/17 09/20/20 History albuterol sulfate [ProAir HFA] 2 puff INHALATION Q4-6H PRN 12/17/18 09/20/20 History Allergies Allergy/AdvReac Type Severity Reaction Status Date / Time morphine Allergy Intermediate Rash Verified 09/20/20 00:13 meperidine [From DEMEROL] Allergy Unknown Verified 09/20/20 00:13 Review of Systems Review of Systems ROS: Yes All systems reviewed with the patient and are negative except as otherwise documented Exam Vital Signs (past 8 hours): - 09/19/20 23:50 09/20/20 00:40 09/20/20 01:02 Temperature 98.3 F Pulse Rate 97 H 78 86 Respiratory Rate 18 Blood Pressure 157/101 H 150/92 H Pulse Oximetry 95 94 94 09/20/20 01:30 09/20/20 02:00 09/20/20 02:30 Temperature Pulse Rate 75 75 72 Respiratory Rate 18 19 Blood Pressure 138/90 150/88 H 141/86 H Pulse Oximetry 95 94 96 Oxygen Delivery Method Room Air Narrative Exam Narrative: GENERAL APPEARANCE: well developed, obese male lying left lateral position on the ER stretcher in mild pain. HEENT: Normocephalic, PERRLA, conjunctiva clear, EOMs intact without nystagmus, mucous membranes are moist and pink. NECK/THYROID: neck supple, no JVD, no thyromegaly, trachea midline. LYMPH NODES: no cervical or supraclavicular lymphadenopathy. SKIN: [place], warm and dry, multiple tattoos, no visible lesions, rashes, ulcerations or petechiae. HEART: regular rate and rhythm, S1-S2, no murmur, no rubs or gallops, brisk capillary refill, no edema LUNGS: clear to auscultation bilaterally, no coarseness crackles or wheezing, no cough present CHEST: Symmetrical movement, no accessory muscle use, good tidal volume. ABDOMEN: Soft, protuberant, pain on palpation most prominent in the left lower quadrant, no peritoneal signs, no organomegaly, no flank tenderness, active bowel tones. BACK: Normal curvature, nontender to palpation, no CVA tenderness on percussion EXTREMITIES: moves all extremities, strength is 5/5 and symmetrical, no deformities or joint effusions. NEUROLOGIC: AAO x 3, no focal neurologic deficits, cranial nerves II-XII grossly intact, sensation intact to light touch, hearing grossly normal to speech. PSYCH: Flat affect, cooperative, stable behavior Objective Labs Result Diagrams: 09/19/20 23:59 09/19/20 23:59 Labs: Laboratory Results - last 24 hr 09/19/20 09/19/20 09/20/20 23:59 23:59 00:50 WBC 12.8 H RBC 5.00 Hgb 15.6 Hct 46.5 MCV 92.9 MCH 31.1 MCHC 33.5 RDW 12.5 Plt Count 336 Neut % (Auto) 77.3 H Lymph % (Auto) 12.5 L [place] % (Auto) 5.7 Eos % (Auto) 4.0 Baso % (Auto) 0.5 Neut # (Auto) 9900 H Lymph # (Auto) 1600 [place] # (Auto) 700 Eos # (Auto) 500 H Baso # (Auto) 100 Sodium 138 Potassium 4.3 Chloride 106 Carbon Dioxide 26 BUN 25 H Creatinine 1.14 Estimated GFR > 60.0 BUN/Creatinine Ratio 21.9 Glucose 105 H Calcium 9.6 Total Bilirubin 0.8 AST 35 ALT 35 Alkaline Phosphatase 71 Total Protein 8.2 Albumin 4.6 Globulin 3.6 Albumin/Globulin Ratio 1.3 Lipase 268 Urine RBC None seen Urine WBC None seen Calcium Oxalate Crystal Occasional H Amorphous Sediment 4+ Urine Bacteria None seen Ur Culture Indicated? Cult not indicated COVID-19 PCR 09/20/20 02:50 WBC RBC Hgb Hct MCV MCH MCHC RDW Plt Count Neut % (Auto) Lymph % (Auto) [place] % (Auto) Eos % (Auto) Baso % (Auto) Neut # (Auto) Lymph # (Auto) [place] # (Auto) Eos # (Auto) Baso # (Auto) Sodium Potassium Chloride Carbon Dioxide BUN Creatinine Estimated GFR BUN/Creatinine Ratio Glucose Calcium Total Bilirubin AST ALT Alkaline Phosphatase Total Protein Albumin Globulin Albumin/Globulin Ratio Lipase Urine RBC Urine WBC Calcium Oxalate Crystal Amorphous Sediment Urine Bacteria Ur Culture Indicated? COVID-19 PCR Negative Assessment & Plan Assessment & Plan narrative: This is a 42-year-old male patient who presents to the ER with crampy abdominal pain onset yesterday morning morning that has been progressive throughout the day with associated watery stools nausea and episode of vomiting. 1. Partial bowel obstruction, acute, present on admission, active. -Onset of symptoms yesterday morning and progressive with crampy abdominal pain, watery diarrhea stool and nausea with vomiting. -patient watery diarrhea without hematochezia or melena. -CT of the abdomen finds increased fluid within the bowel, small bowel loops in left abdomen with air-fluid levels, mesenteric edema, no discrete transition point. -Dr. Norris, general surgery has been contacted and agrees to consult. We appreciate his evaluation recommendations. -patient remains NPO -IV fluid normal saline 125 cc per -Zofran 4 mg every 6 hours as needed for nausea. 2. Hypertension, chronic, stable. -patient with elevated blood pressure upon arrival of 157/101 please secondary to severity of pain. Blood pressure improved to 141/86 with pain management. -patient currently takes no routine antihypertensives. -will for follow blood pressure and manages needed. VTE prophylaxis: SCDs, chemical prophylaxis deferred until evaluation by surgery. IV fluid: Normal saline 125 cc/hour Diet: NPO Code status: Full code, the patient designates his to be his surrogate decision maker. The patient is admitted to the hospital due to the severity of symptoms and need for ongoing evaluation treatment and surgical evaluation to prevent complic ations and adverse events. The patient is admitted as inpatient with expected length of stay to be greater than 2 midnights. Scores GCS [place] coma scale eye opening: Spontaneous Judy coma scale verbal response: Orientated Judy coma scale motor response: Obey commands Judy coma scale total score: 15
--- NOTE | 2020-09-20 06:42 | PC.NURSE ---
Pt was medicated with Benadryl 25mg at 0440 and 0541 for side effects of Reglan. Pt is currently resting quietly, reports pain at 2/10, BP is 114/61.
[2020-09-20] MEDS: SODIUM CHLORIDE 0.9% 1,000 ML 125 ML IV ×3 (07:34→18:58)
[2020-09-20 07:49] LABS: Add Manual Diff / Slide Review NO; Basophils Absolute Auto 100 /uL (0-100); Basophils Percent Auto 0.4 % (0-2); Eosinophils Absolute Auto 500 /uL (0-450); Eosinophils Percent Auto 4.2 % (2-4); Hematocrit 41.5 % (41-53); Hemoglobin 13.8 g/dL (13.5-17.5); Lymphocytes Absolute Auto 1500 /uL (1100-4500); Mean Corpuscular HGB Conc 33.3 % (30-36); Mean Corpuscular Hemoglobin 31.1 PG (26-34); Mean Corpuscular Volume 93.4 fL (80-100); Monocytes Absolute Auto 900 /uL (0-900); Monocytes Percent Auto 7.2 % (3-14); Neutrophils Absolute Auto 9700 /uL (1500-7000); Neutrophils Percent Auto 76.2 % (50-75); Platelet Count 292 X10^3/uL (150-400); Red Blood Cell Count 4.44 X10^6/uL (4.5-5.9); Red Cell Distribution Width 12.5 % (11.6-14.8); White Blood Cell Count 12.7 X10^3/uL (4.5-11.0)
[2020-09-20 08:01] LABS: BUN Creatinine Ratio 23.1 (6-22); Blood Urea Nitrogen 25 mg/dL (9-20); Calcium 8.7 mg/dL (8.4-10.2); Carbon Dioxide 24 mmol/L (22-32); Chloride 110 mmol/L (98-107); Estimated Glomerular Filt Rate > 60.0 mL/min (>60); Glucose 110 mg/dL (70-100); HEMOLYSIS < 15 (0-50); Potassium 4.4 mmol/L (3.4-5.1); Sodium 138 mmol/L (137-145)
[2020-09-20 08:06] LABS: Magnesium 2.2 mg/dL (1.6-2.3)
[2020-09-20] MEDS: SIMETHICONE 80 MG TABLET PO (13:21)
--- NOTE | 2020-09-20 13:27 | PC.NURSE ---
Patient denies abdominal pain or nausea on this shift, but reports bloating, and gas pain. Patient has had 2 loose stools on this shift. Bowel tones are active in all quadrants, abdomen is soft and non-tender. VSS, lung sounds are clear. Normal saline at 125 ml/hr.
[2020-09-20] MEDS: ACETAMINOPHEN 325 MG TABLET 650 MG PO (14:29)
[2020-09-20] MEDS: BISMUTH SUBSALICYLATE 525 MG/30 ML SUSP PO (14:31)
[2020-09-20 15:54] LABS: Adenovirus F 40/41 Not Detected (Not Detect); Astrovirus Not Detected (Not Detect); Campylobacter Not Detected (Not Detect); Clostridium difficile toxin AB Not Detected (Not Detect); Cryptosporidium Not Detected (Not Detect); Cyclospora cayetanensis Not Detected (Not Detect); Entamoeba histolytica Not Detected (Not Detect); Enteroaggregative E.coli Not Detected (Not Detect); Enteropathogenic E.coli Not Detected (Not Detect); Enterotoxigenic E.coli It/st Not Detected (Not Detect); Giardia lamblia Not Detected (Not Detect); Norovirus GI/GII Not Detected (Not Detect); Plesiomonsa shigelloides Not Detected (Not Detect); Rotavirus A Not Detected (Not Detect); Salmonella Not Detected (Not Detect); Sapovirus Not Detected (Not Detect); Shiga-like toxin-prod E.coli Not Detected (Not Detect); Shigella/Enteroinvasive E.coli Not Detected (Not Detect); Vibrio Not Detected (Not Detect); Vibrio cholerae Not Detected (Not Detect); Yersinia enterocolitica Not Detected (Not Detect)
--- NOTE | 2020-09-20 16:39 | PM.CN ---
History of Present Illness Consult details Date Patient Seen: 09/20/20 Time Patient Seen: 16:39 Chief complaint: Nausea,headache, diarhea all day Narrative: 50-year-old man seen in consultation for a partial small bowel obstruction. No prior abdominal surgery in the for the last several days he has had frequent episodes of nausea emesis and diarrhea. He was evaluated in the emergency room last night. CT abdomen pelvis demonstrates fluid-filled loops of small bowel no transition point. His abdominal pain has improved since the time of admission he is afebrile with no further emesis white blood cell count 13 remainder of laboratory studies unremarkable. Meds Home Medications and Allergies Home Medications Medication Instructions Recorded Confirmed Type cholecalciferol (vitamin D3) 2,000 unit PO QPM #0 07/26/17 09/20/20 History [Vitamin D3] naproxen 250 mg PO PRN PRN #0 07/26/17 09/20/20 History albuterol sulfate [ProAir HFA] 2 puff INHALATION Q4-6H PRN 12/17/18 09/20/20 History Allergies Allergy/AdvReac Type Severity Reaction Status Date / Time morphine Allergy Intermediate Rash Verified 09/20/20 00:13 meperidine [From DEMEROL] Allergy Unknown Verified 09/20/20 00:13 Review of Systems Review of Systems Narrative: A 10 point review of systems is negative except as noted in the HPI Exam Vital Signs (past 8 hours): - 09/20/20 11:32 Temperature 98.0 F Pulse Rate 63 Respiratory Rate 14 Blood Pressure 125/78 Pulse Oximetry 97 Oxygen Delivery Method Room Air Oxygen Flow Rate 0 Narrative Exam Narrative: General-no acute distress, well nourished adult male HEENT-moist mucous membranes, no scleral icterus Neck-supple, no lymphadenopathy Chest- non labored respirations, clear to auscultation bilaterally Cardiac-regular rate no peripheral edema Abdomen-soft, mildly tender mid lower abdomen Extremities-warm, well perfused Neurological-alert and oriented, no focal deficits Objective Labs Result Diagrams: 09/20/20 07:37 09/20/20 07:37 Labs: Laboratory Results - last 24 hr 09/19/20 09/19/20 09/20/20 23:59 23:59 00:50 WBC 12.8 H RBC 5.00 Hgb 15.6 Hct 46.5 MCV 92.9 MCH 31.1 MCHC 33.5 RDW 12.5 Plt Count 336 Neut % (Auto) 77.3 H Lymph % (Auto) 12.5 L [place] % (Auto) 5.7 Eos % (Auto) 4.0 Baso % (Auto) 0.5 Neut # (Auto) 9900 H Lymph # (Auto) 1600 [place] # (Auto) 700 Eos # (Auto) 500 H Baso # (Auto) 100 Sodium 138 Potassium 4.3 Chloride 106 Carbon Dioxide 26 BUN 25 H Creatinine 1.14 Estimated GFR > 60.0 BUN/Creatinine Ratio 21.9 Glucose 105 H Calcium 9.6 Magnesium Total Bilirubin 0.8 AST 35 ALT 35 Alkaline Phosphatase 71 Total Protein 8.2 Albumin 4.6 Globulin 3.6 Albumin/Globulin Ratio 1.3 Lipase 268 Urine RBC None seen Urine WBC None seen Calcium Oxalate Crystal Occasional H Amorphous Sediment 4+ Urine Bacteria None seen Ur Culture Indicated? Cult not indicated Stl C. cayetanensis PCR Stool Rotavirus (PCR) Stool Adenovirus (PCR) Stool Astrovirus (PCR) Stool Cryptosporidium PCR Stl E.coli Shiga Tox PCR St Sh/Enteroin Ecoli PCR Stool E coli O157 PCR Stl Enterotoxigenic E PCR Stool EPEC (PCR) Stl E. histolytica PCR Stool Giardia Lamblia PCR Stool Sapovirus (PCR) Stl P. shigelloides PCR St Y.enterocolitica PCR Stool Vibrio (PCR) Stl Vibrio cholerae PCR Stl Enteroaggr Ecoli PCR Stl Norovirus GI/GII PCR Campylobacter (PCR) C. difficile Tox (PCR) COVID-19 PCR Salmonella (PCR) 09/20/20 09/20/20 09/20/20 02:50 07:37 07:37 WBC 12.7 H RBC 4.44 L Hgb 13.8 Hct 41.5 MCV 93.4 MCH 31.1 MCHC 33.3 RDW 12.5 Plt Count 292 Neut % (Auto) 76.2 H Lymph % (Auto) 12.0 L [place] % (Auto) 7.2 Eos % (Auto) 4.2 H Baso % (Auto) 0.4 Neut # (Auto) 9700 H Lymph # (Auto) 1500 [place] # (Auto) 900 Eos # (Auto) 500 H Baso # (Auto) 100 Sodium 138 Potassium 4.4 Chloride 110 H Carbon Dioxide 24 BUN 25 H Creatinine 1.08 Estimated GFR > 60.0 BUN/Creatinine Ratio 23.1 H Glucose 110 H Calcium 8.7 Magnesium Total Bilirubin AST ALT Alkaline Phosphatase Total Protein Albumin Globulin Albumin/Globulin Ratio Lipase Urine RBC Urine WBC Calcium Oxalate Crystal Amorphous Sediment Urine Bacteria Ur Culture Indicated? Stl C. cayetanensis PCR Stool Rotavirus (PCR) Stool Adenovirus (PCR) Stool Astrovirus (PCR) Stool Cryptosporidium PCR Stl E.coli Shiga Tox PCR St Sh/Enteroin Ecoli PCR Stool E coli O157 PCR Stl Enterotoxigenic E PCR Stool EPEC (PCR) Stl E. histolytica PCR Stool Giardia Lamblia PCR Stool Sapovirus (PCR) Stl P. shigelloides PCR St Y.enterocolitica PCR Stool Vibrio (PCR) Stl Vibrio cholerae PCR Stl Enteroaggr Ecoli PCR Stl Norovirus GI/GII PCR Campylobacter (PCR) C. difficile Tox (PCR) COVID-19 PCR Negative Salmonella (PCR) 09/20/20 09/20/20 07:37 12:55 WBC RBC Hgb Hct MCV MCH MCHC RDW Plt Count Neut % (Auto) Lymph % (Auto) [place] % (Auto) Eos % (Auto) Baso % (Auto) Neut # (Auto) Lymph # (Auto) [place] # (Auto) Eos # (Auto) Baso # (Auto) Sodium Potassium Chloride Carbon Dioxide BUN Creatinine Estimated GFR BUN/Creatinine Ratio Glucose Calcium Magnesium 2.2 Total Bilirubin AST ALT Alkaline Phosphatase Total Protein Albumin Globulin Albumin/Globulin Ratio Lipase Urine RBC Urine WBC Calcium Oxalate Crystal Amorphous Sediment Urine Bacteria Ur Culture Indicated? Stl C. cayetanensis PCR Not detected Stool Rotavirus (PCR) Not detected Stool Adenovirus (PCR) Not detected Stool Astrovirus (PCR) Not detected Stool Cryptosporidium PCR Not detected Stl E.coli Shiga Tox PCR Not detected St Sh/Enteroin Ecoli PCR Not detected Stool E coli O157 PCR Not Reportable Stl Enterotoxigenic E PCR Not detected Stool EPEC (PCR) Not detected Stl E. histolytica PCR Not detected Stool Giardia Lamblia PCR Not detected Stool Sapovirus (PCR) Not detected Stl P. shigelloides PCR Not detected St Y.enterocolitica PCR Not detected Stool Vibrio (PCR) Not detected Stl Vibrio cholerae PCR Not detected Stl Enteroaggr Ecoli PCR Not detected Stl Norovirus GI/GII PCR Not detected Campylobacter (PCR) Not detected C. difficile Tox (PCR) Not detected COVID-19 PCR Salmonella (PCR) Not detected Assessment & Plan Assessment & Plan narrative: 50-year-old man who admitted with gastroenteritis. He has had no further emesis or abdominal pain since admission and he continues to pass flatus and bowel movements. CT abdomen pelvis reviewed demonstrates some mildly dilated loops of small bowel no transition point. I suspect the imaging findings were more suggestive of gastroenteritis than a true small-bowel obstruction. May advance diet as tolerated. No acute surgical intervention indicated. Call with questions
[2020-09-20] MEDS: MAG HYDROX/ALUM/SIMETH 30 ML UDC PO (17:05)
[2020-09-20] MEDS: PANTOPRAZOLE 20 MG TABLET PO (21:08)
[2020-09-21] VITALS (9 sets, daily range): BP systolic 105–151; BP diastolic 78–99; PULSE 73–86; RESP 15–18; TEMP 36.6–36.8; O2SAT 95–98
[2020-09-21] MEDS: MAG HYDROX/ALUM/SIMETH 30 ML UDC PO ×2 (00:39→12:48)
[2020-09-21] MEDS: SODIUM CHLORIDE 0.9% 1,000 ML 125 ML IV (03:20)
[2020-09-21] MEDS: BISMUTH SUBSALICYLATE 525 MG/30 ML SUSP PO (03:26)
[2020-09-21] MEDS: PANTOPRAZOLE 20 MG TABLET PO ×2 (06:21→21:28)
[2020-09-21 07:20] LABS: Add Manual Diff / Slide Review NO; Basophils Absolute Auto 100 /uL (0-100); Basophils Percent Auto 0.6 % (0-2); Eosinophils Absolute Auto 700 /uL (0-450); Eosinophils Percent Auto 8.1 % (2-4); Hematocrit 39.9 % (41-53); Hemoglobin 13.5 g/dL (13.5-17.5); Lymphocytes Absolute Auto 1900 /uL (1100-4500); Lymphocytes Percent Auto 22.6 % (25-40); Mean Corpuscular HGB Conc 33.7 % (30-36); Mean Corpuscular Hemoglobin 31.6 PG (26-34); Mean Corpuscular Volume 93.7 fL (80-100); Monocytes Absolute Auto 600 /uL (0-900); Monocytes Percent Auto 7.3 % (3-14); Neutrophils Absolute Auto 5200 /uL (1500-7000); Neutrophils Percent Auto 61.4 % (50-75); Platelet Count 267 X10^3/uL (150-400); Red Blood Cell Count 4.26 X10^6/uL (4.5-5.9); Red Cell Distribution Width 12.6 % (11.6-14.8); White Blood Cell Count 8.5 X10^3/uL (4.5-11.0)
[2020-09-21 07:33] LABS: Alanine Aminotransferase 27 IU/L (<50); Albumin 3.6 g/dL (3.5-5.0); Albumin Globulin Ratio 1.3 (1.0-2.8); Alkaline Phosphatase 55 U/L (38-126); Aspartate Aminotransferase 24 IU/L (17-59); BUN Creatinine Ratio 15.8 (6-22); Bilirubin Total 0.7 mg/dL (0.2-1.3); Blood Urea Nitrogen 16 mg/dL (9-20); Calcium 8.6 mg/dL (8.4-10.2); Carbon Dioxide 27 mmol/L (22-32); Chloride 108 mmol/L (98-107); Estimated Glomerular Filt Rate > 60.0 mL/min (>60); Globulin 2.8 g/dL (1.7-4.1); Glucose 95 mg/dL (70-100); HEMOLYSIS < 15 (0-50); Sodium 134 mmol/L (137-145); Total Protein 6.4 g/dL (6.3-8.2)
[2020-09-21] MEDS: ACETAMINOPHEN 325 MG TABLET 650 MG PO (07:58)
[2020-09-21] MEDS: LORazepam 2 MG/ML INJ 0.5 MG IV ×2 (08:14→19:25)
[2020-09-21] MEDS: METOCLOPRAMIDE HCL 10 MG TABLET 5 MG PO ×3 (11:30→21:28)
--- NOTE | 2020-09-21 13:58 | CM.IDA ---
Initial DCP Assessment Note Patient is a 50 yo male, resident of [place]. Presents w/ N/V/D all day yesterday. PCP: Velma Todd Payer: [employer] (updated from original [facility] on file) According to conversation w/ Dr Yanes in team rounds, surgery has consulted and patient does not appear to be a surgical candidate at this time, Dr Yanes watching patient today; gastroenteritis suspected. Met w/patient this afternoon, introduced SW role. Patient lives w/his and 19, 12 yo children. Patient started work at [employer] in [place] and now has [employer]. Patient is indp. and active at his baseline. According to Dr Yanes, patient has a number of psychiatric diagnosis, do not see this reflected in medical record per chart review- so asked patient and he said yes (psychiatric history) and his prescriber is Dr Zaidi in [place] (?) but does not see a counselor since my insurance changed. Patient denies needs at this time, states he plans to DC home when medically cleared. Will follow closely in case any DC needs or concerns arise. JULIANNA Rivera Discharge Planning/Care Management CM Discharge Assessment Start: 09/21/20 13:39 Freq: Status: Active Protocol: Document 09/21/20 13:39 LASHON (Rec: 09/21/20 13:52 LASHON [id number]) Discharge Planning Assessment Assigned Trend Investigator JULIANNA oLpez DPOA/Assigned Designee Name Charmaine Nunez, spouse Contact Information [phone] Advance Directives? No Advance Directives on File No History Provided By Patient Prior Living Arrangements House Household Members spouse,children Type of transportation used prior to Drives own vehicle admit Independent with ADL's Yes Is patient alert and oriented? Yes Barriers to Discharge No Discharge Plan Home Transportation Arrangement Family Referrals Initiated None needed
--- NOTE | 2020-09-21 17:05 | P.PN_ITS ---
Subjective Subjective Date Patient Seen: 09/21/20 Time Patient Seen: 17:05 Interval history: Javan Galo is a 50 year old male with PMH of anxiety, psychiatric disorder NOS self medicating with marijuana occasionally at home who presented with abdominal pain, nausea, vomiting, and diarrhea yesterday. CT scan of his abdomen showed partial small-bowel obstruction and nonspecific wall edema consistent with the possible gastroenteritis. His diarrhea has improved but he continues to have epigastric abdominal pain, a few seconds to minutes after eating that goes up to a 7 or 8/10 but then slowly abates. Have attempted multiple medical combinations but to no avail to control his symptoms. I rediscussed with general surgery today, and the plan is to perform an upper endoscopy to rule out any possible gastric ulcer or less likely a stricture. He is able to tolerate food and liquids despite the pain, and he does overall feel improved since arrival. Exam Vital Signs (past 8 hours): - 09/21/20 12:37 09/21/20 15:20 Temperature 98.3 F 98.3 F Pulse Rate 74 79 Respiratory Rate 16 18 Blood Pressure 136/78 151/99 H Pulse Oximetry 96 95 Oxygen Delivery Method Room Air Oxygen Flow Rate 0 Narrative Exam Narrative: GENERAL APPEARANCE: well developed, obese male lying left late ral position on the ER stretcher in mild pain. HEENT: Normocephalic, PERRLA, conjunctiva clear, EOMs intact without nystagmus, mucous membranes are moist and pink. NECK/THYROID: neck supple, no JVD, no thyromegaly, trachea midline. LYMPH NODES: no cervical or supraclavicular lymphadenopathy. SKIN: [place], warm and dry, multiple tattoos, no visible lesions, rashes, ulcerations or petechiae. HEART: regular rate and rhythm, S1-S2, no murmur, no rubs or gallops, brisk capillary refill, no edema LUNGS: clear to auscultation bilaterally, no coarseness crackles or wheezing, no cough present CHEST: Symmetrical movement, no accessory muscle use, good tidal volume. ABDOMEN: Soft, protuberant, pain on palpation most prominent epigastrium, no peritoneal signs, no organomegaly, no flank tenderness, active bowel tones. BACK: Normal curvature, nontender to palpation, no CVA tenderness on percussion EXTREMITIES: moves all extremities, strength is 5/5 and symmetrical, no deformities or joint effusions. NEUROLOGIC: AAO x 3, no focal neurologic deficits, cranial nerves II-XII grossly intact, sensation intact to light touch, hearing grossly normal to speech. PSYCH: Flat affect, cooperative, stable behavior Objective Labs Result Diagrams: 09/21/20 07:05 09/21/20 07:05 Labs: Laboratory Results - last 24 hr 09/21/20 09/21/20 07:05 07:05 WBC 8.5 RBC 4.26 L Hgb 13.5 Hct 39.9 L MCV 93.7 MCH 31.6 MCHC 33.7 RDW 12.6 Plt Count 267 Neut % (Auto) 61.4 Lymph % (Auto) 22.6 L [place] % (Auto) 7.3 Eos % (Auto) 8.1 H Baso % (Auto) 0.6 Neut # (Auto) 5200 Lymph # (Auto) 1900 [place] # (Auto) 600 Eos # (Auto) 700 H Baso # (Auto) 100 Sodium 134 L Potassium 4.0 Chloride 108 H Carbon Dioxide 27 BUN 16 Creatinine 1.01 Estimated GFR > 60.0 BUN/Creatinine Ratio 15.8 Glucose 95 Calcium 8.6 Total Bilirubin 0.7 AST 24 ALT 27 Alkaline Phosphatase 55 Total Protein 6.4 Albumin 3.6 Globulin 2.8 Albumin/Globulin Ratio 1.3 [facility] History Chronic back pain Hypertension Kidney stones Surgical History History of lithotripsy Family History Father Myocardial infarct Mother Alcoholism Liver disease Social History household members: spouse and children Smoking Status: Never smoker alcohol intake: never substance use type: marijuana Assessment & Plan Assessment & Plan narrative: This is a 42-year-old male patient who was admitted initially over concern for partial small bowel obstruction possibly secondary to an acute gastroenteritis, his diarrheal symptoms have improved but he continues to have epigastric pain shortly after meals, and will undergo EGD tomorrow with General surgery. 1. Epigastric abdominal pain, acute - patient with continued epigastric pain after eating despite improved gastroenteritis symptoms and improved stool caliber. + cholelithiasis but history not consistent with gallstones. Discussed with surgery again today, Dr. Norris, plan for EGD tomorrow. Will make NPO at midnight. He is currently on PPI therapy. - continue pain control. -symptoms not relieved with ativan (hx of anxiety disorder), reglan, zofran. Some relief with opiate pain medications, but mainly worsened with meals as noted above. 2. Acute gastroenteritis, present on admission, resolved -Onset of symptoms one day prior to admission and progressive with crampy abdominal pain initially LLQ now epigastric, watery diarrhea stool and nausea with vomiting. -CT of the abdomen on admission with increased fluid within the bowel, small bowel loops in left abdomen with air-fluid levels, mesenteric edema, no discrete transition point. Suspected due to a viral illness. GI panel negative and sympt oms have improved with supported therapy. -Zofran 4 mg every 6 hours as needed for nausea. 3. Hypertension, chronic, stable. -patient with elevated blood pressure upon arrival of 157/101 please secondary to severity of pain. Blood pressure improved to normal with adequate pain management. -patient currently takes no routine antihypertensives. -will for follow blood pressure and manage as needed. VTE prophylaxis: SCDs, chemical prophylaxis deferred as patient ambulatory, low risk and pending surgical procedure. Diet: NPO @ [place] for EGD tomorrow Code status: Full code, the patient designates his to be his surrogate decision maker. Dispo: Possible discharge tomorrow pending EGD findings. COVID-19 COVID-19 status: Negative Quality VTE Deep Vein Thrombosis/Pulmonary Embolism Present on Admission: No
[2020-09-21] MEDS: SODIUM CHLORIDE 0.9% FLUSH 10 ML IV (21:28)
[2020-09-22] VITALS (7 sets, daily range): BP systolic 119–162; BP diastolic 69–96; PULSE 68–97; RESP 10–16; TEMP 36.4–37.6; O2SAT 91–96
--- NOTE | 2020-09-22 00:12 | PC.NURSE ---
Addendum entered by Lorie Chowdhury R.N. 09/22/20 05:55: Weight appears to be down > 2kg but bed rezeroed and still showing a drop. Patient states this weight is approximately what he weighed at home. Uncertain why weight appears to have changed. Original Note: Patient is alert and oriented with flat affect. Breath sounds diminished but CTA with RA sat of 95%; placed on continuous oximetry per MD order. HRR. Denies nausea. Having 4/10 sharp mid abdominal pain and dull, right shoulder pain but declines offer of pain medication. BT present and states he is passing flatus/stool. Denies dysuria, frequency or urgency with urination. Independent with bed mobility and has been getting up to bathroom independently and is steady on feet. Refusing SCD's so reminded to ankle wave when awake. Fall risk score is moderate. NPO after 0000 for EGD in the morning; patient verbalizes understanding.
[2020-09-22 06:48] LABS: Add Manual Diff / Slide Review NO; Basophils Absolute Auto 0 /uL (0-100); Basophils Percent Auto 0.6 % (0-2); Eosinophils Absolute Auto 400 /uL (0-450); Eosinophils Percent Auto 5.6 % (2-4); Hemoglobin 13.6 g/dL (13.5-17.5); Lymphocytes Absolute Auto 1800 /uL (1100-4500); Lymphocytes Percent Auto 22.5 % (25-40); Mean Corpuscular HGB Conc 33.9 % (30-36); Mean Corpuscular Hemoglobin 31.4 PG (26-34); Mean Corpuscular Volume 92.6 fL (80-100); Monocytes Absolute Auto 600 /uL (0-900); Monocytes Percent Auto 7.1 % (3-14); Neutrophils Absolute Auto 5100 /uL (1500-7000); Neutrophils Percent Auto 64.2 % (50-75); Platelet Count 263 X10^3/uL (150-400); Red Blood Cell Count 4.32 X10^6/uL (4.5-5.9); Red Cell Distribution Width 12.3 % (11.6-14.8); White Blood Cell Count 7.9 X10^3/uL (4.5-11.0)
[2020-09-22 07:02] LABS: Alanine Aminotransferase 24 IU/L (<50); Albumin Globulin Ratio 1.4 (1.0-2.8); Alkaline Phosphatase 58 U/L (38-126); Aspartate Aminotransferase 22 IU/L (17-59); BUN Creatinine Ratio 16.7 (6-22); Bilirubin Total 0.6 mg/dL (0.2-1.3); Blood Urea Nitrogen 18 mg/dL (9-20); Calcium 9.3 mg/dL (8.4-10.2); Carbon Dioxide 31 mmol/L (22-32); Chloride 103 mmol/L (98-107); Estimated Glomerular Filt Rate > 60.0 mL/min (>60); Globulin 2.9 g/dL (1.7-4.1); Glucose 95 mg/dL (70-100); HEMOLYSIS 15 (0-50); Sodium 138 mmol/L (137-145); Total Protein 6.9 g/dL (6.3-8.2)
[2020-09-22] MEDS: HYDROMORPHONE 0.5 MG INJ IV (09:19)
[2020-09-22] MEDS: SODIUM CHLORIDE 0.9% FLUSH 10 ML IV (09:20)
[2020-09-22] MEDS: ONDANSETRON 4 MG/2 ML INJ IV (09:25)
--- NOTE | 2020-09-22 13:07 | PM.OP.ENDO ---
Operative Date/Time/Diagnoses Date of procedure: 09/22/20 Time of procedure: 13:07 Pre-op diagnosis: history of Petersen's esophagus Post-op diagnosis: same Procedure & Clinicians Study performed: aborted esophagoduodenoscopy Same procedure as scheduled: No Indications: Hx of petersen's esophagus here for routine EGD Surgeon: Rolando Norris Procedure Notes Procedure in detail: Patient placed in left lateral decubitus position. Time out was performed. Procedural sedation was administered with Versed and Fentanyl. A bite block was placed. the scope was inserted into the mouth and advanced. Despite sedation measures he became very agitated and was unable to be safely sedated for the purpose of the procedure. The procedure was therefore canceled. Post-procedure Recommendations: Reflux diet and Other recommendation (Follow-up with primary care provider) Disposition: same day surgery
--- NOTE | 2020-09-22 13:09 | CM.DPNOTE ---
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 P: Home w/family, close outpatient f/u JW
--- NOTE | 2020-09-22 13:26 | PM.PREOP ---
Pre-operative Note COVID-19 COVID-19 status: Negative Interval Note History & Physical reviewed/Exam performed by Physician: Yes Changes to H&P: No ASA Class (for procedural sedation): II
[2020-09-22] MEDS: LACTATED RINGERS 1,000 ML 100 ML IV (13:32)
[2020-09-22] MEDS: LIDOCAINE 4% SOLN 50 ML 20 ML TOP (14:00)
--- NOTE | 2020-09-22 14:08 | PM.OP.ENDO ---
Operative Date/Time/Diagnoses Date of procedure: 09/22/20 Time of procedure: 14:08 Pre-op diagnosis: epigastric pain Post-op diagnosis: same Procedure & Clinicians Study performed: Esophagoduodenoscopy Same procedure as scheduled: Yes Indications: 50-year-old man hospitalized for abdominal pain of unknown etiology here for EGD Surgeon: Rolando Norris Procedure Notes Procedure in detail: Patient placed in left lateral decubitus position. Time out was performed. Procedural sedation was administered with Versed and Fentanyl. A bite block was placed. the scope was inserted into the mouth and advanced through the esophagus and into the stomach. The pylorus was intubated and the duodenum was normal to the 2nd portion. The scope was retroflexed within the stomach and there was no hiatal hernia. No ulcers, or gastritis. The scope was withdrawn into the esophagus the Z line was seen at 40 cm from the incisions. There was no Wilson's esophagitis or masses or strictures. Stomach was desufflated and scope removed. Patient tolerated procedure well. Specimen(s): none sent Complications: none Impression: Normal EGD Post-procedure Disposition: Acute Care
--- NOTE | 2020-09-22 16:06 | P.DS_ITS ---
History of Present Illness History of Present Illness Date Patient Seen: 09/20/20 Chief complaint: Nausea,headache, diarhea all day Narrative: Written by Matt TIMMONS: Mr. Javan Galo is a 50-year-old male with a past medical history significant for hypertension, chronic low back pain and kidney stones who presents to the ER with worsening abdominal pain. The patient describes an onset of crampy abdominal pain yesterday morning upon waking. The pain was progressive throughout the day developed watery stools last night. And has progressed to nausea with vomiting. His pain is increased with activity and decreased with rest. He denies complaints of a recent cold or flu symptoms, fevers or chills known COVID-19 exposure. He denies complaints of headaches or dizziness nasal congestion or sore throat. He has no chest pain or palpitations, shortness of breath or cough. He does have intermittent wheezing related allergies for which she uses an albuterol inhaler as needed. He has generalized abdominal pain however more prominent on the left abdomen greater in the left lower quadrant than the left upper quadrant. He describes ongoing c rampy abdominal pain with episodes of nausea and vomiting on getting up to the bathroom in the ER. The patient received Reglan to which she had an untoward response treated with Benadryl. Patient otherwise denies urinary difficulties and has generalized musculoskeletal pain which she treats with naproxen 250 mg twice daily. Upon arrival ER the patient is afebrile with temperature 98.3?, heart rate 97, blood pressure 157/101, respirations 18 saturating 95% on room air. CT of the abdomen pelvis is obtained which finds increased fluid within the bowel, small bowel loops left abdomen with have air-fluid levels and mesenteric edema. No discrete transition point identified. On laboratory analysis the patient has white count of 12.8, hemoglobin of 15.6, hematocrit 46.5 and platelets 336. His electrolytes are all within normal limits he has a BUN of 25 and creatinine 1.14. His nonfasting glucose is 105. His liver functions are all within normal limits and has an albumin of 4.6. His lipase is 268. Urinalysis obtained which finds no infection with occasional calcium oxalate crystals. COVID screening is negative. General surgery is contacted and Dr. Norris agrees to consult. The p jaclyn is admitted to the medicine service for partial bowel obstruction. PCP: Velma Todd Discharge Providers Provider Date of admission: 09/20/20 06:51 Discharge Date: 09/22/20 Primary care physician: IAIN Trotter Consults: 09/20/20 05:51 Consult to General Surgery Stat Comment: Consulting Provider: Rolando Norris Reason for consultation: Partial small-bowel obstruction Has provider been notified: Yes 09/20/20 05:55 Consult to Discharge Planning Routine Comment: Discharge provider: Ivonne Dominguez DO Summary Hospital Course Discharge Diagnosis: 1. Acute epigastric abdominal pain, likely secondary to IBS versus viral gastroenteritis, present on admission. Resolved. 2. Hypertension, chronic, present on admission. Stable. Hospital Course: Javan Galo is a 50-year-old male with a past medical history significant for hypertension, chronic low back pain and kidney stones who presented to the ED with worsening abdominal pain. 1. Acute epigastric abdominal pain, likely secondary to IBS with constipation versus viral gastroenteritis, present on admission. Resolved. -Patient presented with crampy abdominal pain, diarrhea, nausea and vomiting. -CT abdomen and pelvis with contrast demonstrated mildly distended stomach with fluid-filled small and colon loops with mild proximal small intestine dilation and a few air-fluid levels, no transitional point identified, small amount of free fluid, no free air. The CT findings are most compatible with a gastroenteritis and ileus. -GI stool PCR negative. -Consulted general surgery, Dr. Norris, who performed EGD due to continued epigastric pain despite resolution of other symptoms including nausea, vomiting and diarrhea which was unremarkable and without pathology. -Continued supportive therapy with as needed antiemetics and pain medication. Continued to advance diet slowly as tolerated and patient tolerating normal diet. -Discontinued PPI. -Patient likely has irritable bowel syndrome and he relates that he had been told this in the past. Recommended increasing fiber in diet and staying well hydrated. If patient continues to have intermittent diarrhea or constipation recommend addition of stool softener to keep normal BMs. Viral gastroenteritis cannot be ruled out. 2. Hypertension, chronic, present on admission. Stable. -Patient with elevated blood pressure of 157/101 on admission. Blood pressure improved to normal with adequate pain management. Patient is not medically treated with antihypertensives and did not need to implement throughout hospitalization. Exam Vital Signs (past 8 hours): - 09/22/20 09:47 09/22/20 13:21 09/22/20 14:11 Temperature 98.3 F 99.7 F H 97.8 F Pulse Rate 77 80 74 Respiratory Rate 16 14 10 L Blood Pressure 141/84 H 162/96 H 131/91 H Pulse Oximetry 94 96 91 09/22/20 14:16 09/22/20 14:21 09/22/20 14:27 Temperature 97.6 F 98.0 F 98 F Pulse Rate 74 68 97 H Respiratory Rate 12 16 16 Blood Pressure 125/85 130/87 139/90 Pulse Oximetry 92 94 95 Oxygen Delivery Method Room Air Oxygen Flow Rate 0 Narrative Exam Narrative: General: Middle-aged male sitting in bed and in no acute distress, well- developed, well-nourished, appropriately interactive. HEENT: Normocephalic, atraumatic. External ears without defect. Pupils equal, round, and reactive to light. Anicteric sclerae, moist conjunctivae, and no lid lag. Oropharynx free of erythema and cobble stoning with moist mucosa. Neck: Supple with full range of motion. No lymphadenopathy or thyromegaly. Cardiovascular: Regular rate and rhythm without murmurs, rubs, or gallops appreciated Pulmonary: Clear to auscultation bilaterally without crackles, wheezes, or rhonchi. Normal respiratory effort with no use of accessory muscles. Abdomen: Soft, bowel sounds present, nontender, nondistended. No hepatosplenomegaly or masses appreciated. Extremities: No clubbing, cyanosis, or edema. Skin: Normal temperature, turgor, and texture; no rash, ulcers, or subcutaneous nodules appreciated. Neurological: Cranial nerves grossly intact. Psychiatric: Normal mood and affect. Alert and oriented to person, place, and time. Objective Labs Result Diagrams: 09/22/20 06:35 09/22/20 06:35 Labs: Laboratory Results - last 24 hr 09/22/20 09/22/20 06:35 06:35 WBC 7.9 RBC 4.32 L Hgb 13.6 Hct 40.0 L MCV 92.6 MCH 31.4 MCHC 33.9 RDW 12.3 Plt Count 263 Neut % (Auto) 64.2 Lymph % (Auto) 22.5 L [place] % (Auto) 7.1 Eos % (Auto) 5.6 H Baso % (Auto) 0.6 Neut # (Auto) 5100 Lymph # (Auto) 1800 [place] # (Auto) 600 Eos # (Auto) 400 Baso # (Auto) 0 Sodium 138 Potassium 4.0 Chloride 103 Carbon Dioxide 31 BUN 18 Creatinine 1.08 Estimated GFR > 60.0 BUN/Creatinine Ratio 16.7 Glucose 95 Calcium 9.3 Total Bilirubin 0.6 AST 22 ALT 24 Alkaline Phosphatase 58 Total Protein 6.9 Albumin 4.0 Globulin 2.9 Albumin/Globulin Ratio 1.4 PFSH Medical History Chronic back pain Hypertension Kidney stones Surgical History History of lithotripsy Family History Father Myocardial infarct Mother Alcoholism Liver disease Social History household members: spouse and children Smoking Status: Never smoker alcohol intake: never substance use type: marijuana Discharge Plan Discharge Plan Patient Disposition: Home Provider Discharge Comment: You are being discharged home. Your upper scope was absolutely normal. Your stool is not infected. Your CT scan demonstrated constipation which was likely the cause of your nausea, vomiting and abdominal discomfort. There were no kidney stones on your CT scan. You likely have irritable bowel syndrome which is hyperactivity of the nervous system of the gut. Recommend increased fiber in diet and staying well hydrated. You may have escape diarrhea around constipation and if you vary between diarrhea and constipation frequently would recommend a stool softener daily. Please follow- up with your primary care physician regarding your hospitalization and for continued medical treatment. Discharge orders & Medications Prescriptions: Continued naproxen 250 MG tablet 250 mg PO PRN PRN (Reason: Pain, Moderate) Qty: 0 RF: 0 cholecalciferol (vitamin D3) [Vitamin D3] 2,000 UNIT capsule 2,000 unit PO QPM Qty: 0 RF: 0 albuterol sulfate 90 mcg/actuation HFA aerosol inhaler 2 puff inhalation Q4-6H PRN (Reason: Allergic Symptoms) RF: 0 Diet/Activity/Treatments Diet: Diet as Tolerated Skin/Wound/Dressing Care Report to your healthcare provider any signs of infection, such as:: increased pain Visit Report/Discharge Packet Instructions: DI for Constipation, DI for Irritable Bowel Syndrome, Stool Soft eners Discharge Data Primary Care Provider: Velma Todd Attending Provider: Matt Vogel VTE Deep Vein Thrombosis/Pulmonary Embolism Present on Admission: No
== END 2020-09-22 17:07 | disposition home or self-care (01) ==
LOC: ED 09-20 02:48 → AC 09-20 06:52
PROVIDERS: Internal Medicine; Surgery; Admitting Provider Nurse Practitioner Adult Health; Emergency Provider Emergency Medicine; Family Provider Nurse Practitioner Gerontology; PCP Nurse Practitioner Gerontology; Visit Provider Nurse Practitioner Adult Health
PROC: 0DJ08ZZ Inspection of Upper Intestinal Tract, Via Natural or Artificial Opening Endoscopic (ICD-10-PCS; CPT 43235; principal; 2020-09-22 13:00)
DX: R10.84 Generalized abdominal pain (principal); R11.2 Nausea with vomiting, unspecified; R19.7 Diarrhea, unspecified; I10 Essential (primary) hypertension; F41.9 Anxiety disorder, unspecified; M54.5 Low back pain; G89.29 Other chronic pain; Z11.59 Encounter for screening for other viral diseases
CPT/HCPCS: 43235; 36415; 74177; 80048; 80053; 81003; 81015; 83690; 83735; 85025; 87507; 87635; 94762; 96361; 96374; 96375; 96376; 99218; 99284; G0378; A9270; C9113; J1170; J1200; J2060; J2405; J2765; Q9967

== ENCOUNTER 2021-09-05 22:00 | Emergency (ER) | payer OTHER, MEDICAID, SELFPAY ==
[2020-09-20 07:39] VITALS: BMI 30.7
[2021-09-05 22:02] VITALS: BP 157/91; PULSE 71; O2SAT 100
[2021-09-05 22:03] VITALS: BP 157/91; PULSE 73; RESP 20; TEMP 36.9; O2SAT 100
--- NOTE | 2021-09-05 22:06 | DI.RAD.S_ITS ---
PROCEDURE: XR CHEST 1V INDICATIONS: Flu like symptoms TECHNIQUE: One view of the chest was acquired. COMPARISON: [facility], CR, XR CHEST 1V, 06/23/2019, 21:56. FINDINGS: Surgical changes and devices: None. Lungs and pleura: New subtle patchy airspace opacities of the bilateral upper lung zones. No focal consolidations. No pleural effusions or pneumothorax. Mediastinum: Mediastinal contours appear normal. Heart size is normal. Bones and chest wall: No suspicious bony lesions. Overlying soft tissues appear unremarkable. IMPRESSION: New, subtle patchy airspace opacities of the bilateral upper lung zones. Findings may represent atelectasis versus early developing airspace disease. Recommend follow up chest radiograph 4-6 weeks after treatment to document resolution of findings and/or return to baseline examination. Dictated by: Heath Burr M.D. on 09/05/2021 at 22:31 Approved by: Heath Burr M.D. on 09/05/2021 at 22:32
[2021-09-05 22:15] LABS: Add Manual Diff / Slide Review NO; Basophils Absolute Auto 0 /uL (0-100); Basophils Percent Auto 0.4 % (0-2); Eosinophils Absolute Auto 0 /uL (0-450); Eosinophils Percent Auto 0.4 % (2-4); Hematocrit 42.2 % (41-53); Hemoglobin 14.5 g/dL (13.5-17.5); Lymphocytes Absolute Auto 1100 /uL (1100-4500); Lymphocytes Percent Auto 22.6 % (25-40); Mean Corpuscular HGB Conc 34.4 % (30-36); Mean Corpuscular Hemoglobin 31.2 PG (26-34); Mean Corpuscular Volume 90.8 fL (80-100); Monocytes Absolute Auto 500 /uL (0-900); Neutrophils Absolute Auto 3100 /uL (1500-7000); Neutrophils Percent Auto 65.6 % (50-75); Platelet Count 201 X10^3/uL (150-400); Red Blood Cell Count 4.65 X10^6/uL (4.5-5.9); Red Cell Distribution Width 12.6 % (11.6-14.8); White Blood Cell Count 4.7 X10^3/uL (4.5-11.0)
[2021-09-05 22:26] LABS: Alanine Aminotransferase 22 IU/L (<50); Albumin 4.8 g/dL (3.5-5.0); Albumin Globulin Ratio 1.5 (1.0-2.8); Alkaline Phosphatase 65 U/L (38-126); Aspartate Aminotransferase 28 IU/L (17-59); BUN Creatinine Ratio 19.3 (6-22); Bilirubin Total 0.7 mg/dL (0.2-1.3); Blood Urea Nitrogen 21 mg/dL (9-20); C-Reactive Protein Quant < 0.5 mg/dL (<1.0); Calcium 9.6 mg/dL (8.4-10.2); Carbon Dioxide 25 mmol/L (22-32); Chloride 100 mmol/L (98-107); Estimated Glomerular Filt Rate > 60.0 mL/min (>60); Globulin 3.2 g/dL (1.7-4.1); Glucose 105 mg/dL (70-100); HEMOLYSIS < 15 (0-50); Lipase 54 U/L (23-300); Potassium 4.4 mmol/L (3.4-5.1); Sodium 138 mmol/L (137-145)
[2021-09-05 22:30] VITALS: BP 145/96; PULSE 72; O2SAT 98
[2021-09-05 22:52] VITALS: BP 145/96; PULSE 68; RESP 18; O2SAT 96
[2021-09-05 22:58] LABS: Ferritin 373 ng/mL (18-464)
[2021-09-05 23:00] VITALS: BP 156/91; PULSE 80; O2SAT 97
[2021-09-05 23:30] VITALS: BP 146/91; PULSE 68; O2SAT 95
[2021-09-06] VITALS: BP 151/99; PULSE 77; O2SAT 96
--- NOTE | 2021-09-06 00:28 | ED.ABDPAIN ---
HPI - Abdominal Pain General Chief Complaint: Abdominal Pain Stated Complaint: Abd Pain/Dizzy Time Seen by Provider: 09/06/21 00:09 Source: patient and EMS Mode of arrival: EMS Limitations: no limitations History of Present Illness HPI narrative: Patient is a 51-year-old male with history of bipolar, depression, anxiety presenting today unknown COVID diagnosed on August 31 started having symptoms 2 days prior. His was seen earlier this evening with COVID related issues. He now is having epigastric pain which he has had for over a week. Today he started dry heaving and feels like he may be dehydrated. He also has headache and feels dizzy and lightheaded at times as well. No diarrhea. He has had body aches. O2 remains in the 90s on room air. Related Data Home Medications Medication Instructions Recorded Confirmed cholecalciferol (vitamin D3) 50 2,000 unit PO QPM #0 07/26/17 09/20/20 mcg (2,000 unit) capsule (Vitamin D3) naproxen 250 mg tablet 250 mg PO PRN PRN #0 07/26/17 09/20/20 albuterol sulfate 90 mcg/actuation 2 puff INHALATION Q4-6H PRN 12/17/18 09/20/20 aerosol inhaler Previous Rx's Medication Instructions Recorded ondansetron 4 mg disintegrating 4 mg PO Q8H PRN #10 tab 09/06/21 tablet Allergies Allergy/AdvReac Type Severity Reaction Status Date / Time morphine Allergy Intermediate Rash Verified 09/20/20 00:13 meperidine [From DEMEROL] Allergy Unknown Verified 09/20/20 00:13 metoclopramide [From Reglan] AdvReac Anxiety Verified 09/20/20 21:54 Review of Systems Review of Systems Narrative: GENERAL: Denies chills, fatigue, malaise, fever, sweats, travel HEENT: Denies sinus pain, ear pain, sore throat, difficulty swallowing, neck pain RESPIRATORY: Denies dyspnea, cough, wheezing, hemoptysis, sputum. CARDIOVASCULAR: Denies chest pain, palpitations, orthopnea, edema GASTROINTESTINAL: See HPI : Denies dysuria, frequency, incontinence, hematuria, urinary retention, flank pain. MUSCULOSKELETAL: Denies weakness, joint pain, or bony pain SKIN: No rash, no erythema, no pruritus NEUROLOGIC: Denies weakness, dizziness, headache, numbness, change in speech, confusion PSYCHIATRIC: No concerning psychosocial issues. 12 point review of systems is negative except for those stated above and HPI Patient History Medical History Chronic back pain Hypertension Kidney stones Surgical History History of lithotripsy Family History Father Myocardial infarct Mother Alcoholism Liver disease Social History household members: spouse and children Smoking Status: Never smoker alcohol intake: never substance use type: marijuana Smoking Status: Never smoker alcohol intake frequency: holidays/special occasions only Substance Use Type: marijuana Exam Initial Vital Signs Initial Vital Signs: Vital Signs Pulse Rate 71 09/05/21 22:02 Blood Pressure 157/91 H 09/05/21 22:02 Pulse Oximetry 100 09/05/21 22:02 GENERAL: Alert 51-year-old no acute does dry HEENT: Head atraumatic,EOMI, pupils reactive, face symmetric, moist mucous membranes CARDIOVASCULAR: Regular rate and rhythm without murmurs, rubs or gallops. RESPIRATORY: Breath sounds equal bilaterally, no wheezes rales or rhonchi. ABDOMEN: Soft, minimal epigastric negative Cooley sign no right upper quadrant Normoactive bowel sounds all 4 quadrants. No guarding or rebound. EXTREMITIES: Normal range of motion, no clubbing or edema. Neurovascularly intact NEUROLOGICAL: Alert and oriented x4.Normal gait and speech. SKIN: Warm, dry, no laceration, no petechiae, no rashes or lesions. Course Orders Ordered: Discontinued Medications Acetaminophen (Acetaminophen 325 Mg Tablet) 975 mg PO NOW ONE Stop: 09/06/21 01:17 Last Admin: 09/06/21 01:34 Dose: 975 mg Documented by: ANTONIO Ketorolac Tromethamine (Ketorolac 30 Mg/Ml Vial) 15 mg IV NOW ONE Stop: 09/06/21 00:28 Last Admin: 09/06/21 00:32 Dose: 15 mg Documented by: TADEO Ondansetron HCl (Ondansetron 4 Mg/2 Ml Inj) 4 mg IV NOW ONE Stop: 09/06/21 00:38 Last Admin: 09/06/21 00:38 Dose: 4 mg Documented by: TADEO Ondansetron HCl (Ondansetron 4 Mg Odt Prepack) 1 bottle MISC SEEINSTR ONE Stop: 09/06/21 01:36 Last Admin: 09/06/21 01:38 Dose: 1 bottle Documented by: ANTONIO Vital Signs Vital signs: Vital Signs - 8 hr 09/05/21 22:02 09/05/21 22:03 09/05/21 22:30 Temperature 98.5 F Pulse Rate 71 73 72 Respiratory Rate 20 Blood Pressure 157/91 H 157/91 H 145/96 H Pulse Oximetry 100 100 98 09/05/21 22:52 09/05/21 23:00 Temperature Pulse Rate 68 80 Respiratory Rate 18 Blood Pressure 145/96 H 156/91 H Pulse Oximetry 96 97 MDM - Abdominal Pain Lab Data Result diagrams: 09/05/21 22:03 09/05/21 22:03 Labs: Lab Results 09/05/21 09/05/21 Range/Units 22:03 22:03 WBC 4.7 (4.5-11.0) X10^3/uL RBC 4.65 (4.5-5.9) X10^6/uL Hgb 14.5 (13.5-17.5) g/dL Hct 42.2 (41-53) % MCV 90.8 (80-100) fL MCH 31.2 (26-34) PG MCHC 34.4 (30-36) % RDW 12.6 (11.6-14.8) % Plt Count 201 (150-400) X10^3/uL Neut % (Auto) 65.6 (50-75) % Lymph % (Auto) 22.6 L (25-40) % [place] % (Auto) 11.0 (3-14) % Eos % (Auto) 0.4 L (2-4) % Baso % (Auto) 0.4 (0-2) % Neut # (Auto) 3100 (4744-4869) /uL Lymph # (Auto) 1100 (4288-3472) /uL [place] # (Auto) 500 (0-900) /uL Eos # (Auto) 0 (0-450) /uL Baso # (Auto) 0 (0-100) /uL Sodium 138 (137-145) mmol/L Potassium 4.4 (3.4-5.1) mmol/L Chloride 100 (98-107) mmol/L Carbon Dioxide 25 (22-32) mmol/L BUN 21 H (9-20) mg/dL Creatinine 1.09 (0.66-1.25) mg/dL Estimated GFR > 60.0 (>60) mL/min BUN/Creatinine Ratio 19.3 (6-22) Glucose 105 H (70-100) mg/dL Calcium 9.6 (8.4-10.2) mg/dL Ferritin 373 (18-464) ng/mL Total Bilirubin 0.7 (0.2-1.3) mg/dL AST 28 (17-59) IU/L ALT 22 (<50) IU/L Alkaline Phosphatase 65 (38-126) U/L C-Reactive Protein < 0.5 (<1.0) mg/dL Total Protein 8.0 (6.3-8.2) g/dL Albumin 4.8 (3.5-5.0) g/dL Globulin 3.2 (1.7-4.1) g/dL Albumin/Globulin Ratio 1.5 (1.0-2.8) Lipase 54 (23-300) U/L ECG Data Interpretation: Normal sinus rhythm rate 71 DE 146 QRS [address] changes or T-wave inversions MDM Narrative Medical decision making narrative: Patient has known COVID he has minimal epigastric pain which has been ongoing for 1 week. He has had dry heaving and nausea today which now is controlled with Zofran. He has no right upper quadrant pain no elevation of bilirubin or liver enzymes at this time no need for any further imaging. Symptoms are likely related to his current COVID diagnosis. He does not meet admission criteria for COVID at this time. Discussed with him home care and when to return to ED. Discharge Plan Departure Patient Disposition: Home Clinical Impression: COVID-19, Abdominal pain Instructions: DI for COVID-19 (Suspected or Confirmed ) Activity Restrictions/Additional Instructions: *You have been diagnosed with COVID, abdominal pain MEDICATION: Zofran 4 mg every 8 hours if needed for nausea or vomiting * if you have not yet been vaccinated is still recommended and encouraged that you do so once your infection has passed At home: -Monitor oxygen with pulse oximeter. If less than 90% for more than 1 hour please return to emergency department -I recommend lying on stomach for side rather than back, it has been proven to increase oxygen levels -Wash hands frequently. -Stay isolated at home please follow the isolation instructions below. -Increase fluid intake. -you may take Tylenol as directed if needed for pain or fever Emergency warning signs for COVID-19: - Difficulty breathing or shortness of breath, oxygen less than 90% - Persistent pain or pressure in the chest - New confusion or inability to arouse - Bluish lips or face CDC Guidelines for home isolation: - Stay away from others - Limit contact with pets and animals: If you must care for a pet, wash your hands before and after interacting with them - Wear a mask while in public all places - Cover your mouth and nose with a tissue when you cough or sneeze. Dispose of tissues in a lined trash can and wash your hands immediately with soap and water for at least 20 seconds. If soap and water are not available, clean hands with alcohol-based hand food beverage supervisor that contains at least 60% alcohol. - Clean your hands often with soap and water for at least 20 seconds - Avoid touching your eyes, nose and mouth with unwashed hands - Do not share dishes, drinking glasses, cups, eating utensils, towels, or bedding with other people in your home. After using these items, wash them thoroughly with soap and water or put in the production operations engineer. - Clean high-touch surfaces in your isolation area (?sick room? and bathroom) every day; let a caregiver clean and disinfect high-touch surfaces in other areas of the home. Clean the area or item with soap and water or another detergent if it is dirty. Then, use a household disinfectant. Prescriptions: New ondansetron 4 mg tablet,disintegrating 4 mg PO Q8H PRN (Reason: nausea and vomiting) Qty: 10 0RF No Action naproxen 250 MG tablet 250 mg PO PRN PRN (Reason: Pain, Moderate) Qty: 0 0RF Rx Instructions: Pt reports that he takes 2 tabs every am cholecalciferol (vitamin D3) [Vitamin D3] 2,000 UNIT capsule 2,000 unit PO QPM Qty: 0 0RF albuterol sulfate 90 mcg/actuation HFA aerosol inhaler 2 puff inhalation Q4-6H PRN (Reason: Allergic Symptoms) 0RF Label Comments: inhale 1 to 2 puffs by mouth every 4 hours if needed for shortness ofbreath or wheezing Referrals: Velma Todd ARNP [Primary Care Provider] -
[2021-09-06 00:30] VITALS: BP 146/99; PULSE 82; O2SAT 97
[2021-09-06] MEDS: KETOROLAC 30 MG/ML VIAL 15 MG IV (00:32)
[2021-09-06] MEDS: ONDANSETRON 4 MG/2 ML INJ IV (00:38)
[2021-09-06 01:00] VITALS: BP 169/107; PULSE 78; O2SAT 98
[2021-09-06 01:30] VITALS: BP 185/95; PULSE 85; O2SAT 98
[2021-09-06 01:34] VITALS: BP 185/95; PULSE 77; RESP 18; O2SAT 99
[2021-09-06] MEDS: ACETAMINOPHEN 325 MG TABLET 975 MG PO (01:34)
[2021-09-06] MEDS: ONDANSETRON 4 MG ODT PREPACK 1 BOTTLE MISC (01:38)
== END 2021-09-06 01:48 | disposition home or self-care (01) ==
PROVIDERS: Emergency Provider Emergency Medicine; Family Provider Nurse Practitioner Gerontology; PCP Nurse Practitioner Gerontology
DX: U07.1 COVID-19 (principal); R10.13 Epigastric pain; R11.0 Nausea; R03.0 Elevated blood-pressure reading, without diagnosis of hypertension
CPT/HCPCS: 71045; 80053; 82728; 83690; 85025; 86140; 93005; 96374; 96375; 99284; J1885; J2405

== ENCOUNTER 2022-06-10 21:38 | Emergency (ER) | payer OTHER, MEDICAID, SELFPAY ==
[2020-09-20 07:39] VITALS: BMI 30.7
[2022-06-10 21:52] VITALS: BP 160/93; PULSE 89; RESP 18; TEMP 36.2; O2SAT 98; BMI 30.1
--- NOTE | 2022-06-10 23:52 | ED_ITS ---
HPI - Headache General Chief Complaint: Headache Stated Complaint: Nausea, Headache Time Seen by Provider: 06/10/22 23:05 Mode of arrival: Ambulatory History of Present Illness HPI Narrative: 51-year-old male smoker with history of kidney stones and recent diagnosis of COVID presents with ongoing headache and some nausea since his diagnosis was made about 1 week ago. He did take a COVID test at home today was found to be negative. He denies any obvious provocation or palliation of his headache. He denies any radiation of his headache and states it is moderate in nature and just annoying. He is nauseated but denies any significant vomiting. He has no chest pain, shortness of breath or ongoing cough. He denies any fever or chills. He is able to eat and drink Related Data Home Medications Medication Instructions Recorded Confirmed cholecalciferol (vitamin D3) 50 2,000 unit PO QPM ##0 07/26/17 09/20/20 mcg (2,000 unit) capsule (Vitamin D3) naproxen 250 mg tablet 250 mg PO PRN PRN Pain, Moderate 07/26/17 09/20/20 ##0 albuterol sulfate 90 mcg/actuation 2 puff inhalation Q4-6H PRN 12/17/18 09/20/20 aerosol inhaler Allergic Symptoms Previous Rx's Medication Instructions Recorded ondansetron 4 mg disintegrating 4 mg PO Q8H PRN nausea and 09/06/21 tablet vomiting #10 tabs ondansetron 4 mg disintegrating 4 mg PO TID-QID PRN nausea and 06/11/22 tablet vomiting #10 tabs pantoprazole 40 mg tablet,delayed 40 mg PO DAILY #30 tabs 06/11/22 release (Protonix) Allergies Allergy/AdvReac Type Severity Reaction Status Date / Time morphine Allergy Intermediate Rash Verified 06/10/22 21:57 meperidine [From DEMEROL] Allergy Unknown Verified 06/10/22 21:57 metoclopramide [From Reglan] AdvReac Anxiety Verified 06/10/22 21:57 Review of Systems Review of Systems Narrative: GENERAL: See HPI HEENT: Denies sinus pain, ear pain, sore throat, difficulty swallowing, dizziness. RESPIRATORY: Denies dyspnea, cough, wheezing, hemoptysis, sputum. CARDIOVASCULAR: Denies chest pain, palpitations, orthopnea, edema, GASTROINTESTINAL: See HPI : Denies dysuria, frequency, incontinence, hematuria, urinary retention. MUSCULOSKELETAL: denies weakness, joint pain, or bony pain SKIN: Denies rash, skin lesions, or other NEUROLOGIC: See HPI PSYCHIATRIC: No concerning psychosocial issues. 12 point review of systems is negative except for those stated above Patient History Medical History Chronic back pain Hypertension Kidney stones Surgical History History of lithotripsy Family History Father Myocardial infarct Mother Alcoholism Liver disease Social History household members: spouse and children Smoking Status: Never smoker alcohol intake: never substance use type: marijuana Smoking Status: Never smoker alcohol intake frequency: holidays/special occasions only Substance Use Type: marijuana Exam Narrative Exam Narrative: GENERAL: 51[] year old patient appears stated age. Well-developed patient, in mild distress. HEAD: Atraumatic. Normocephalic. EYES: Pupils equal round and reactive. Extraocular motions intact. No scleral icterus. No injection or drainage. ENT: Nose without bleeding, purulent drainage. Throat without erythema, tonsillar hypertrophy or exudate. Airway patent. NECK: Trachea midline. Non tender CARDIOVASCULAR: Regular rate and rhythm without murmurs, gallops, or rubs. RESPIRATORY: Clear to auscultation. Breath sounds equal bilaterally. No wheezes, rales, or rhonchi. GASTROINTESTINAL: Abdomen soft, non-tender, nondistended. EXTREMITIES: No edema or joint tenderness. BACK: Nontender without deformity or crepitance. No flank tenderness. NEURO: AOx3. SKIN: No rash or erythema of visible areas Initial Vital Signs Initial Vital Signs: Vital Signs Temperature 97.1 F L 06/10/22 21:52 Pulse Rate 89 06/10/22 21:52 Respiratory Rate 18 06/10/22 21:52 Blood Pressure 160/93 H 06/10/22 21:52 Pulse Oximetry 98 06/10/22 21:52 Oxygen Delivery Method 06/10/22 21:52 Course Orders Ordered: Discontinued Medications Ondansetron HCl (Ondansetron 4 Mg Odt Prepack) 1 bottle [facility] [place] [facility] ONE Stop: 06/11/22 00:06 Last Admin: 06/11/22 00:20 Dose: 1 bottle Documented By: YOLANDA Vital Signs Vital signs: Vital Signs - 8 hr 06/10/22 21:52 Temperature 97.1 F L Pulse Rate 89 Respiratory Rate 18 Blood Pressure 160/93 H Pulse Oximetry 98 Oxygen Delivery Method Room Air MDM - Headache MDM Narrative Medical decision making narrative: Patient has very reassuring history and physical exam without meningeal signs. He is well-hydrated and shows no signs of respiratory distress. He is given return precautions and questions answered to his apparent satisfaction Discharge Plan Departure Patient Disposition: Home Clinical Impression: Headache, Nausea Instructions: DI for Nausea -- Adult, DI for Headache Activity Restrictions/Additional Instructions: *You have been diagnosed with [generalized headache and nausea. As we discussed this is likely due to multiple symptoms including mild dehydration, lack of consistent diet, decrease caffeine among others. As we discussed, you have a very reassuring history and physical exam and there is no suggestion of a significant or critical diagnosis that would require a specific or immediate intervention *What to do: *Please continue to take your regular medications as directed. [x ] New medication prescriptions sent to your pharmacy: [[facility] ] [ ] New medication written as a paper prescription [ ] No new medications given *Please follow up with your primary care provider in 2-3 days, call for an appointment. Let them know you were seen in the Emergency Department and that we ask that you be seen in follow up. We will electronically transmit a record of today's note if your PCP is in our system *If you do not have a primary care provider please contact the [facility] Resource line at [phone]. They will ask some questions about your medical history and help get you set up with a doctor in the community. *Return to Emergency Department if you should have any new, worsening or concerning symptoms, such as [fever greater than 101 F, shaking chills, worsening pain, persistent vomiting or other bothersome symptoms] Prescriptions: New pantoprazole [Protonix] 40 mg tablet,delayed release (DR/EC) 40 mg PO DAILY Qty: 30 0RF ondansetron 4 mg tablet,disintegrating 4 mg PO TID-QID PRN (Reason: nausea and vomiting) Qty: 10 0RF No Action naproxen 250 MG tablet 250 mg PO PRN PRN (Reason: Pain, Moderate) Qty: 0 Rx Instructions: Pt reports that he takes 2 tabs every am cholecalciferol (vitamin D3) [Vitamin D3] 2,000 UNIT capsule 2,000 unit PO QPM Qty: 0 albuterol sulfate 90 mcg/actuation HFA aerosol inhaler 2 puff inhalation Q4-6H PRN (Reason: Allergic Symptoms) Label Comments: inhale 1 to 2 puffs by mouth every 4 hours if needed for shortness ofbreath or wheezing ondansetron 4 mg tablet,disintegrating 4 mg PO Q8H PRN (Reason: nausea and vomiting) Qty: 10 0RF Referrals: Velma Todd ARNP [Primary Care Provider] - Visit Report Forms: Patient Portal/API
[2022-06-11] MEDS: ONDANSETRON 4 MG ODT PREPACK 1 BOTTLE MISC (00:20)
[2022-06-11 00:27] VITALS: BP 139/81; PULSE 87; RESP 16; O2SAT 99
== END 2022-06-11 00:27 | disposition home or self-care (01) ==
PROVIDERS: Emergency Provider Emergency Medicine; Family Provider Nurse Practitioner Gerontology; PCP Nurse Practitioner Gerontology
DX: R51.9 Headache, unspecified (principal); R11.0 Nausea; Z86.16 Personal history of COVID-19
CPT/HCPCS: 99281

== ENCOUNTER 2023-03-01 16:56 | Emergency (ER) | payer OTHER, MEDICAID, SELFPAY ==
[2020-09-20 07:39] VITALS: BMI 30.7
[2023-03-01 17:33] VITALS: BP 154/104; PULSE 65; RESP 16; TEMP 36.9; O2SAT 97; BMI 29.2
--- NOTE | 2023-03-01 17:57 | DI.CT.S_ITS ---
PROCEDURE: CT HEAD/BRAIN WO CON INDICATIONS: headache out of proportion to normal, no trauma TECHNIQUE: Noncontrast 4.5 mm thick angled axial sections acquired from the foramen magnum to the vertex, with coronal and sagittal reformats. For radiation dose reduction, the following was used: automated exposure control, adjustment of mA and/or kV according to patient size. COMPARISON: [facility], MR, MR BRAIN WITHOUT CONTRAST, 12/04/2021, 17:05. FINDINGS: Image quality: Excellent. CSF spaces: Basal cisterns are patent. No extra-axial fluid collections. Ventricles are normal in size and shape. Brain: No midline shift. No intracranial masses or hemorrhage. Landaverde-white matter interface is normal. Skull and face: Calvarium and visualized facial bones are intact, without suspicious lesions. Sinuses: Visualized sinuses and mastoids are clear. IMPRESSION: 1. No acute intracranial process. Dictated by: Milagro Rai M.D. on 03/01/2023 at 18:01 Approved by: Milagro Rai M.D. on 03/01/2023 at 18:02
--- NOTE | 2023-03-01 22:51 | ED_ITS ---
HPI - Headache General Chief Complaint: Headache Stated Complaint: Headache, Pressure behind eyes, Ref for CT Time Seen by Provider: 03/01/23 22:47 Mode of arrival: Ambulatory History of Present Illness HPI Narrative: Patient is a 52-year-old male history of schizophrenia, anxiety, vertigo presenting today with headache. He reports that he he has intense spasms last anywhere from 2-10 minutes. During that time his whole-body tenses up was heart beats fast. He is not had any fever chills. He is no neck pain. He says that when he stands up he gets very dizzy. He has been taking naproxen Tylenol and meclizine at home without significant relief. He was encouraged by family members to come in for head CT. He denies any fever chills chest pain or shortness of breath. He says the dizziness is worse when he 1st stands up and then it seems to get better. He does not think that this is like his previous vertigo his meclizine usually helps it is not helping now. He is not really requesting anything for pain dizziness. He needs a work note he has trouble working when he is in intense pain. Related Data Home Medications Medication Instructions Recorded Confirmed cholecalciferol (vitamin D3) 50 2,000 unit PO QPM ##0 07/26/17 09/20/20 mcg (2,000 unit) capsule (Vitamin D3) naproxen 250 mg tablet 250 mg PO PRN PRN Pain, Moderate 07/26/17 09/20/20 ##0 albuterol sulfate 90 mcg/actuation 2 puff inhalation Q4-6H PRN 12/17/18 09/20/20 aerosol inhaler Allergic Symptoms Previous Rx's Medication Instructions Recorded ondansetron 4 mg disintegrating 4 mg PO Q8H PRN nausea and 09/06/21 tablet vomiting #10 tabs ondansetron 4 mg disintegrating 4 mg PO TID-QID PRN nausea and 06/11/22 tablet vomiting #10 tabs pantoprazole 40 mg tablet,delayed 40 mg PO DAILY #30 tabs 06/11/22 release (Protonix) Allergies Allergy/AdvReac Type Severity Reaction Status Date / Time morphine Allergy Intermediate Rash Verified 06/10/22 21:57 meperidine [From DEMEROL] Allergy Unknown Verified 06/10/22 21:57 metoclopramide [From Reglan] AdvReac Anxiety Verified 06/10/22 21:57 Review of Systems Review of Systems ROS Unobtainable: All systems reviewed & are unremarkable except as noted in HPI and below Patient History Medical History Chronic back pain Hypertension Kidney stones Surgical History History of lithotripsy Family History Father Myocardial infarct Mother Alcoholism Liver disease Social History household members: spouse and children Smoking Status: Never smoker alcohol intake: never substance use type: marijuana Smoking Status: Never smoker alcohol intake frequency: holidays/special occasions only Substance Use Type: marijuana Exam Initial Vital Signs Initial Vital Signs: Vital Signs Temperature 98.4 F 03/01/23 17:33 Pulse Rate 65 03/01/23 17:33 Respiratory Rate 16 03/01/23 17:33 Blood Pressure 154/104 H 03/01/23 17:33 Pulse Oximetry 97 03/01/23 17:33 Oxygen Delivery Method Room Air 03/01/23 17:33 GENERAL: Alert pleasant 52-year-old male HEENT: Head atraumatic,EOMI, pupils reactive, face symmetric, moist mucous membranes, no meningeal signs CARDIOVASCULAR: Regular rate and rhythm without murmurs, rubs or gallops. RESPIRATORY: Breath sounds equal bilaterally, no wheezes rales or rhonchi. ABDOMEN: Soft, nontender. Normoactive bowel sounds all 4 quadrants. No guarding or rebound. EXTREMITIES: Normal range of motion, no clubbing or edema. Neurovascularly intact NEUROLOGICAL: Alert and oriented x4.Normal gait and speech. Cranial nerves II through XII grossly intact. Good [id number], good [id number], strength equal bilaterally, no dysarthria or aphasia, sensation in tact to soft touch bilaterally, no visual changes, no facial droop SKIN: Warm, dry, no laceration, no petechiae, no rashes or lesions. Course Orders Ordered: Discontinued Medications Ketorolac Tromethamine (Ketorolac 30 Mg/Ml Vial) 30 mg IM NOW ONE Stop: 03/01/23 23:06 Last Admin: 03/01/23 23:14 Dose: 30 mg Documented By: GILDARDO Vital Signs Vital signs: Vital Signs - 8 hr 03/01/23 23:17 Pulse Rate 63 Respiratory Rate 18 Blood Pressure 169/96 H Pulse Oximetry 97 Oxygen Delivery Method Room Air MDM - Headache Imaging Data CT scan - head: Radiologist's Impression: PROCEDURE:? CT HEAD/BRAIN WO CON ? INDICATIONS:? headache out of proportion to normal, no trauma ? TECHNIQUE:? Noncontrast 4.5 mm thick angled axial sections acquired from the foramen magnum to the vertex, with coronal and sagittal reformats.? For radiation dose reduction, the following was used:? automated exposure control, adjustment of mA and/or kV according to patient size.? ? COMPARISON:? [facility], MR, MR BRAIN WITHOUT CONTRAST, 12/04/2021, 17:05. ? FINDINGS:? Image quality:? Excellent.? ? CSF spaces:? Basal cisterns are patent.? No extra-axial fluid collections.? Ventricles are normal in size and shape.? ? Brain:? No midline shift.? No intracranial masses or hemorrhage.? Landaverde-white matter interface is normal.? ? Skull and face:? Calvarium and visualized facial bones are intact, without suspicious lesions.? ? Sinuses:? Visualized sinuses and mastoids are clear.? ? IMPRESSION:? ? 1. No acute intracranial process. ? ? Dictated by: Milagro Rai M.D. on 03/01/2023 at 18:01 ?? [facility] Narrative Medical decision making narrative: Patient 52-year-old male history of vertigo schizophrenia presenting today with headaches. Sounds as though it is like a muscle spasm which is quite intense. He says his body aches are immediately after tensing up and being in such pain. He is afebrile here. Possibility of infection however with this history I do not think so. No evidence of meningeal signs. He has no focal deficits. Head CT is negative without intracranial hemorrhage or mass. His like spasm. He is offered stronger pain medications Ativan but he declines. At this time there is really no need for any further workup. He requests a work note which seems reasonable. Discharge Plan Departure Patient Disposition: Home Clinical Impression: Headache Instructions: DI for Headache Activity Restrictions/Additional Instructions: *You have been diagnosed with headache *What to do: This time stay hydrated rest I hope this gets better for you. *Continue to take medications as directed Do not take naproxen for 8 hours after Toradol. *Follow up with your primary care provider in 2-3 days or call [phone] *Return to ER if you should have increasing pain nausea vomiting weakness numbness tingling or any new, worsening or concerning symptoms Prescriptions: No Action naproxen 250 MG tablet 250 mg PO PRN PRN (Reason: Pain, Moderate) Qty: 0 Rx Instructions: Pt reports that he takes 2 tabs every am cholecalciferol (vitamin D3) [Vitamin D3] 2,000 UNIT capsule 2,000 unit PO QPM Qty: 0 albuterol sulfate 90 mcg/actuation HFA aerosol inhaler 2 puff inhalation Q4-6H PRN (Reason: Allergic Symptoms) Patient Comments: inhale 1 to 2 puffs by mouth every 4 hours if needed for shortness ofbreath or wheezing ondansetron 4 mg tablet,disintegrating 4 mg PO Q8H PRN (Reason: nausea and vomiting) Qty: 10 0RF pantoprazole [Protonix] 40 mg tablet,delayed release (DR/EC) 40 mg PO DAILY Qty: 30 0RF ondansetron 4 mg tablet,disintegrating 4 mg PO TID-QID PRN (Reason: nausea and vomiting) Qty: 10 0RF Referrals: Velma Todd ARNP [Primary Care Provider] - Stand Alone Forms: Patient Portal/API, Work Release Note
[2023-03-01] MEDS: KETOROLAC 30 MG/ML VIAL IM (23:14)
[2023-03-01 23:17] VITALS: BP 169/96; PULSE 63; RESP 18; O2SAT 97
== END 2023-03-01 23:21 | disposition home or self-care (01) ==
PROVIDERS: Emergency Provider Emergency Medicine; Family Provider Nurse Practitioner Gerontology; PCP Nurse Practitioner Gerontology
DX: R51.9 Headache, unspecified (principal)
CPT/HCPCS: 70450; 96372; 99283; 99284; J1885

== ENCOUNTER 2023-03-23 21:38 | Emergency (ER) | payer OTHER, SELFPAY ==
[2020-09-20 07:39] VITALS: BMI 30.7
[2023-03-23 21:48] VITALS: BP 142/92; PULSE 70; RESP 14; TEMP 36.8; O2SAT 99; BMI 29.2
--- NOTE | 2023-03-23 22:18 | ED.GENADULT ---
HPI - General Adult General Chief complaint: Abdominal Pain Stated complaint: Kidney stones R sided groin pain Time Seen by Provider: 03/23/23 22:17 Source: patient Mode of arrival: Ambulatory History of Present Illness HPI narrative: 52 you gentleman with a long history of kidney stones. He is had 1 that was large enough that it required urologic intervention including stenting and laser treatment. Most of the other ones he passed himself. He states that he typically passes small ones and he believes most recent 1 was about 3 weeks ago. He is concerned that he is had increasing tenderness with severe pain that he was unable to control at home with Tylenol or Naprosyn which is usually effective. It started abruptly at 8:30 tonight and by 10:00 the pain has completely resolved. He describes no fevers, cough, chills. No nausea vomiting or diarrhea. His notes that when she forces him to drink more water he has far fewer kidney stones. Over the last couple of weeks he has been more anxious and not taking time to drink as much water. He does not have a urologist, he is currently in between primary care doctors. He has taken Flomax in the past and believes he does have some at home but is not currently taking it. Related Data Home Medications Medication Instructions Recorded Confirmed cholecalciferol (vitamin D3) 50 2,000 unit PO QPM ##0 07/26/17 09/20/20 mcg (2,000 unit) capsule (Vitamin D3) naproxen 250 mg tablet 250 mg PO PRN PRN Pain, Moderate 07/26/17 09/20/20 ##0 albuterol sulfate 90 mcg/actuation 2 puff inhalation Q4-6H PRN 12/17/18 09/20/20 aerosol inhaler Allergic Symptoms Previous Rx's Medication Instructions Recorded ondansetron 4 mg disintegrating 4 mg PO Q8H PRN nausea and 09/06/21 tablet vomiting #10 tabs ondansetron 4 mg disintegrating 4 mg PO TID-QID PRN nausea and 06/11/22 tablet vomiting #10 tabs pantoprazole 40 mg tablet,delayed 40 mg PO DAILY #30 tabs 06/11/22 release (Protonix) ondansetron 4 mg disintegrating 4 mg PO Q8H PRN nausea and 03/24/23 tablet vomiting #20 tabs oxycodone 5 mg tablet 5 mg PO Q6H PRN pain #20 tabs 03/24/23 tamsulosin 0.4 mg capsule 0.4 mg PO DAILY #90 caps 03/24/23 Allergies Allergy/AdvReac Type Severity Reaction Status Date / Time morphine Allergy Intermediate Rash Verified 03/23/23 21:47 meperidine [From DEMEROL] Allergy Unknown Verified 03/23/23 21:47 metoclopramide [From Reglan] AdvReac Anxiety Verified 03/23/23 21:47 Review of Systems Review of Systems Narrative: Pertinent positive and negative findings as per HPI Patient History Medical History Chronic back pain Hypertension Kidney stones Surgical History History of lithotripsy Family History Father Myocardial infarct Mother Alcoholism Liver disease Social History household members: spouse and children Smoking Status: Never smoker alcohol intake: never substance use type: marijuana Smoking Status: Never smoker alcohol intake frequency: holidays/special occasions only Substance Use Type: marijuana Exam Initial Vital Signs Initial Vital Signs: Vital Signs Temperature 98.2 F 03/23/23 21:48 Pulse Rate 70 03/23/23 21:48 Respiratory Rate 14 03/23/23 21:48 Blood Pressure 142/92 H 03/23/23 21:48 Pulse Oximetry 99 03/23/23 21:48 Oxygen Delivery Method Room Air 03/23/23 21:48 General: Healthy appearing, in no acute distress. Eating popcorn during my exam. Able to give a complete and coherent history. Well-nourished well-developed HEENT: Moist mucous membranes, normal sclera with reactive pupils, Respiratory: Lungs are clear to auscultation, no wheezing no rales no rhonchi. Full and symmetrical air movement Cardiac: Regular rate and rhythm no murmurs no bruits Abdomen: Soft, nontender, good bowel tones, no flank pain Skin: Warm and dry, no rashes Neurologic: Grossly neurologically intact with no obvious asymmetries or abnormalities Extremities: No trauma, well perfused Psych: Cooperative, appropriate insight and affect Course Orders Ordered: ED Orders 03/23/23 22:00 Complete Blood Count AUTO DIFF Stat Comprehensive Metabolic Panel Stat Lipase Stat 03/23/23 22:05 Urine Microscopic Stat 03/23/23 22:30 CT kidney ureter bladder (KUB) Stat Discontinued Medications Sodium Chloride (Normal Saline 0.9%) 1,000 mls @ 1,000 mls/hr IV BOLUS ONE Stop: 03/23/23 23:29 Last Infusion: 03/23/23 23:40 Dose: 0 mls/hr Documented By: Admin: 03/23/23 22:40 Dose: 1,000 mls/hr Documented By: MISSY Ketorolac Tromethamine (Ketorolac 30 Mg/Ml Vial) 15 mg IV NOW ONE Stop: 03/24/23 00:09 Last Admin: 03/24/23 00:27 Dose: 15 mg Documented By: MISSY Ondansetron HCl (Ondansetron 4 Mg Odt) 4 mg PO NOW PRN PRN Reason: Nausea And Vomiting Ondansetron HCl (Ondansetron 4 Mg/2 Ml Inj) 4 mg IV NOW PRN PRN Reason: Nausea And Vomiting Oxycodone/Acetaminophen (Oxycodone/Acetaminophen 5/325 Tablet) 1 tab PO NOW ONE Stop: 03/24/23 00:09 Last Admin: 03/24/23 00:26 Dose: 1 tab Documented By: MISSY Oxycodone/Acetaminophen (Oxycodone/Apap 5/325 Prepack) 1 bottle MISC SEEINSTR ONE Stop: 03/24/23 00:09 Last Admin: 03/24/23 00:26 Dose: 1 bottle Documented By: MISSY Tamsulosin HCl (Tamsulosin 0.4 Mg Capsule) 0.4 mg PO NOW ONE Stop: 03/23/23 22:31 Last Admin: 03/23/23 22:40 Dose: 0.4 mg Documented By: MISSY Vital Signs Vital signs: Vital Signs - 8 hr 03/23/23 21:48 03/24/23 00:30 Temperature 98.2 F 98 F Pulse Rate 70 78 Respiratory Rate 14 18 Blood Pressure 142/92 H 136/84 Pulse Oximetry 99 97 Oxygen Delivery Method Room Air Room Air Medical Decision Making Lab Data 03/23/23 22:00 03/23/23 22:00 Labs: Lab Results 03/23/23 03/23/23 03/23/23 Range/Units 22:00 22:00 22:05 WBC 7.5 (4.5-11.0) X10^3/uL RBC 4.41 L (4.5-5.9) X10^6/uL Hgb 14.0 (13.5-17.5) g/dL Hct 40.4 L (41-53) % MCV 91.6 (80-100) fL MCH 31.8 (26-34) PG MCHC 34.7 (30-36) % RDW 12.5 (11.6-14.8) % Plt Count 281 (150-400) X10^3/uL Neut % (Auto) 63.5 (50-75) % Lymph % (Auto) 24.6 L (25-40) % [place] % (Auto) 7.5 (3-14) % Eos % (Auto) 3.5 (2-4) % Baso % (Auto) 0.9 (0-2) % Neut # (Auto) 4800 (2011-7667) /uL Lymph # (Auto) 1900 (6724-0339) /uL [place] # (Auto) 600 (0-900) /uL Eos # (Auto) 300 (0-450) /uL Baso # (Auto) 100 (0-100) /uL Sodium 137 (137-145) mmol/L Potassium 4.5 (3.4-5.1) mmol/L Chloride 101 (98-107) mmol/L Carbon Dioxide 30 (22-32) mmol/L BUN 28 H (9-20) mg/dL Creatinine 1.54 H (0.66-1.25) mg/dL Estimated GFR 55 L (>60) mL/min BUN/Creatinine Ratio 18.2 (6-22) Glucose 96 (70-100) mg/dL Calcium 9.0 (8.4-10.2) mg/dL Total Bilirubin 0.7 (0.2-1.3) mg/dL AST 26 (17-59) IU/L ALT 21 (<50) IU/L Alkaline Phosphatase 69 (38-126) U/L Total Protein 7.4 (6.3-8.2) g/dL Albumin 4.3 (3.5-5.0) g/dL Globulin 3.1 (1.7-4.1) g/dL Albumin/Globulin Ratio 1.4 (1.0-2.8) Lipase 516 H (23-300) U/L Urine RBC 1-5/hpf (0-5/HPF) Urine WBC None seen (0-5/HPF) Ur Squamous Epith Cells 0-1 /hpf (0-5/HPF) Urine Bacteria None seen (None) Ur Culture Indicated? Cult not indicated Urine Dip Bedside Urine Glucose Negative Bedside Urine Bilirubin - Negative Urine Specific [place] 1.030 Bedside Urine Occult Blood + Bedside Urine pH 6.0 Bedside Urine Protein - Negative Bedside Urine Urobilinogen - Negative Bedside Urine Nitrite - Negative Bedside Urine Leukocytes - Negative Esterase Point of care testing: Urine Dip Bedside Urine Glucose Negative Bedside Urine Bilirubin - Negative Urine Specific [place] 1.030 Bedside Urine Occult Blood + Bedside Urine pH 6.0 Bedside Urine Protein - Negative Bedside Urine Urobilinogen - Negative Bedside Urine Nitrite - Negative Bedside Urine Leukocytes - Negative Esterase MDM Narrative Medical decision making narrative: CC: Right side flank pain, patient believes it is kidney stone. Worse than usual. This is an acute exacerbation of a chronic ongoing problem with uncertain prognosis Complicating co-morbidities: History of kidney stones Data collected from: patient, Social determinants of health that may influence the patients condition: Currently in between physicians Medical records reviewed: Prior notes from ER visits and hospital discharge summary from September 22, 2020 is also reviewed. Differential considered: Kidney stone, pyelonephritis, constipation, gas, shingles Exam documented above, pertinent findings include: Completely normal exam at this time with no abdominal pain, flank pain no skin changes. Lab Test results independently reviewed as above. Pertinent findings: CBC is unremarkable CMP is reassuring Independently reviewed EKG as above Imaging studies independently reviewed: With shared decision-making we opted to proceed with a CT scan of the abdomen. Patient is concerned that the current stone he is experiencing is large enough that it may need additional intervention. Brief review of our medical record indicate patient had a CT of the abdomen in September of 2020 there has been no dedicated CT KUB to look for stones. CT KUB shows a 2 mm right proximal ureteral stone with moderate right-sided hydronephrosis and proximal hydroureter. Mild to moderate right perinephric fat stranding. Nonobstructing bilateral punctate renal calcifications. Incidentally noted gallstones Discussion: 52-year-old gentleman with history of multiple gallstones with a 2 mm proximal ureteral stone on the right side causing his acute pain. Pain is essentially resolved at this point is suggested that he continue with daily tamsulosin given the frequency with which he continues to have stones. We talked about the use of Naprosyn and Tylenol with oxycodone if pain is severe. He is also given a prescription for Zofran should he develop worsening nausea. He is well aware of complications of kidney stones and when he might need to return to the emergency department and we covered this again in detail with both he and his . Currently he is voiding, pain-free no evidence of fever and is safe for discharge home Discharge Plan Departure Patient Disposition: Home Clinical Impression: Kidney stone on left side, Hydronephrosis Gallstone Qualifiers: Cholecystitis presence: without cholecystitis Biliary obstruction: without biliary obstruction Qualified Code(s): K80.20 - Calculus of gallbladder without cholecystitis without obstruction Instructions: DI for Kidney Stones Activity Restrictions/Additional Instructions: Thank you for coming in today You do have a 2 mm size kidney stone on the right side. There is some backed up urine which is causing the pain that you are experiencing. Given your history of all of your prior stones I suspect that you are going to pass this 2 mm stone without difficulty. I am going to suggest that you begin tamsulosin and take it daily given your history of chronic and recurrent kidney stones. For moderate pain using ibuprofen and Naprosyn is absolutely appropriate. For severe pain adding 5 mg of oxycodone, a narcotic to this may help prevent future ER visits. Oxycodone will cause constipation, make sure that you use a stool softener any day that you choose to take this. For nausea you can use Zofran If you find that you are having increasing pain, develop any fevers, have not pass the stone you may need to follow-up with urology. You can certainly contact [facility], Dr. Min at [phone] for a follow-up appointment. On your CT scan, we frequently find incidental findings. You have to gallstones. These are not currently causing problems. If you find that you are getting worse or develop any new symptoms, please feel free to return to the emergency department for further evaluation. Prescriptions: New oxycodone 5 mg tablet 5 mg PO Q6H PRN (Reason: pain) Qty: 20 0RF tamsulosin 0.4 mg capsule 0.4 mg PO DAILY Qty: 90 1RF ondansetron 4 mg tablet,disintegrating 4 mg PO Q8H PRN (Reason: nausea and vomiting) Qty: 20 1RF No Action naproxen 250 MG tablet 250 mg PO PRN PRN (Reason: Pain, Moderate) Qty: 0 Rx Instructions: Pt reports that he takes 2 tabs every am cholecalciferol (vitamin D3) [Vitamin D3] 2,000 UNIT capsule 2,000 unit PO QPM Qty: 0 albuterol sulfate 90 mcg/actuation HFA aerosol inhaler 2 puff inhalation Q4-6H PRN (Reason: Allergic Symptoms) Patient Comments: inhale 1 to 2 puffs by mouth every 4 hours if needed for shortness ofbreath or wheezing ondansetron 4 mg tablet,disintegrating 4 mg PO Q8H PRN (Reason: nausea and vomiting) Qty: 10 0RF pantoprazole [Protonix] 40 mg tablet,delayed release (DR/EC) 40 mg PO DAILY Qty: 30 0RF ondansetron 4 mg tablet,disintegrating 4 mg PO TID-QID PRN (Reason: nausea and vomiting) Qty: 10 0RF Referrals: Velma Todd ARNP [Primary Care Provider] - Stand Alone Forms: Patient Portal/API
[2023-03-23 22:20] LABS: Add Manual Diff / Slide Review NO; Basophils Absolute Auto 100 /uL (0-100); Basophils Percent Auto 0.9 % (0-2); Eosinophils Absolute Auto 300 /uL (0-450); Eosinophils Percent Auto 3.5 % (2-4); Hematocrit 40.4 % (41-53); Lymphocytes Absolute Auto 1900 /uL (1100-4500); Lymphocytes Percent Auto 24.6 % (25-40); Mean Corpuscular HGB Conc 34.7 % (30-36); Mean Corpuscular Hemoglobin 31.8 PG (26-34); Mean Corpuscular Volume 91.6 fL (80-100); Monocytes Absolute Auto 600 /uL (0-900); Monocytes Percent Auto 7.5 % (3-14); Neutrophils Absolute Auto 4800 /uL (1500-7000); Neutrophils Percent Auto 63.5 % (50-75); Platelet Count 281 X10^3/uL (150-400); Red Blood Cell Count 4.41 X10^6/uL (4.5-5.9); Red Cell Distribution Width 12.5 % (11.6-14.8); White Blood Cell Count 7.5 X10^3/uL (4.5-11.0)
[2023-03-23 22:29] LABS: Alanine Aminotransferase 21 IU/L (<50); Albumin 4.3 g/dL (3.5-5.0); Albumin Globulin Ratio 1.4 (1.0-2.8); Alkaline Phosphatase 69 U/L (38-126); Aspartate Aminotransferase 26 IU/L (17-59); BUN Creatinine Ratio 18.2 (6-22); Bilirubin Total 0.7 mg/dL (0.2-1.3); Blood Urea Nitrogen 28 mg/dL (9-20); Carbon Dioxide 30 mmol/L (22-32); Chloride 101 mmol/L (98-107); Estimated Glomerular Filt Rate 55 mL/min (>60); Globulin 3.1 g/dL (1.7-4.1); Glucose 96 mg/dL (70-100); HEMOLYSIS < 15 (0-50); Lipase 516 U/L (23-300); Potassium 4.5 mmol/L (3.4-5.1); Sodium 137 mmol/L (137-145); Total Protein 7.4 g/dL (6.3-8.2)
--- NOTE | 2023-03-23 22:30 | DI.CT.S_ITS ---
PROCEDURE: CT KIDNEY URETER BLADDER (KUB) INDICATIONS: right flank pain TECHNIQUE: Axial sections were acquired from the lung bases to the pubic symphysis. Coronal and sagittal reformats were performed. For radiation dose reduction, the following was used: automated exposure control, adjustment of mA and/or kV according to patient size. COMPARISON: [facility], CT, CT ABDOMEN PELVIS W CON, 09/20/2020, 1:34. FINDINGS: Image quality: Excellent. Lung bases: Mild bibasilar dependent atelectasis is seen.. Heart: No significant findings. URINARY: Right Kidney: Moderate right-sided hydronephrosis and perinephric fat stranding is seen. Punctate nonobstructing right renal calculi are noted. Right Ureter: There is proximal right hydroureter just distal to the right UPJ with tiny 2 mm stone seen in right proximal ureter series 4, image 30 and series 2, image 41. More distal right ureter is normal in size. Left Kidney: No obstructing stones or hydronephrosis. Punctate nonobstructing stones are seen in upper pole left kidney. Left Ureter: No hydroureter. Bladder: Normal wall thickness. No stones. ABDOMEN: Liver: Unremarkable. Gallbladder: 2 calcified stones are noted in dependent portion of gallbladder lumen. No gallbladder wall thickening or pericholecystic fluid. Biliary ducts: Unremarkable. Pancreas: Unremarkable. Spleen: Unremarkable. Adrenal Glands: Unremarkable. Stomach and Bowel: Stomach, small bowel loops, and colon are unremarkable. Appendix is visualized and is within normal limits. Peritoneum: No abnormal intraperitoneal fluid. No free air. Ventral Wall: No hernia. Abdominal Nodes: No enlarged retroperitoneal or mesenteric lymph nodes. Vessels: Aorta and inferior vena cava are normal in size. PELVIS: Pelvic Organs: Unremarkable. Pelvic Nodes: Unremarkable. Miscellaneous: Bilateral inguinal hernia are seen containing fat only. Bones: No suspicious bony lesions. No acute vertebral body compression fracture. IMPRESSION: 1. 2 mm right proximal ureteral stone with moderate right-sided hydronephrosis and proximal hydroureter. Mild to moderate right perinephric fat stranding. 2. Nonobstructing bilateral punctate renal calcifications. No left-sided hydronephrosis or hydroureter. Normal appearing urinary bladder. 3. No bowel obstruction or abnormal bowel wall thickening. No free fluid or free air. Normal appendix. 4. Cholelithiasis without CT evidence of acute cholecystitis. Dictated by: Luis Gomez M.D. on 03/23/2023 at 22:43 Approved by: Luis Gomez M.D. on 03/23/2023 at 22:48
[2023-03-23 22:33] LABS: Bacteria Urine None Seen; Culture Indicated Urine Cult Not Indicated; RBC Urine 1-5/HPF (0-5/HPF); Squamous Epithelial Cell Urine 0-1 /HPF (0-5/HPF); WBC Urine None Seen (0-5/HPF)
[2023-03-23] MEDS: TAMSULOSIN 0.4 MG CAPSULE PO (22:40)
[2023-03-23] MEDS: SODIUM CHLORIDE 0.9% 1,000 ML 1000 ML IV (22:40)
[2023-03-24] MEDS: OXYCODONE/ACETAMINOPHEN 5/325 TABLET 1 TAB PO (00:26)
[2023-03-24] MEDS: OXYCODONE/APAP 5/325 PREPACK 1 BOTTLE MISC (00:26)
[2023-03-24] MEDS: KETOROLAC 30 MG/ML VIAL 15 MG IV (00:27)
[2023-03-24 00:30] VITALS: BP 136/84; PULSE 78; RESP 18; TEMP 36.6; O2SAT 97
== END 2023-03-24 00:31 | disposition home or self-care (01) ==
PROVIDERS: Emergency Provider Emergency Medicine; Family Provider Nurse Practitioner Gerontology; PCP Nurse Practitioner Gerontology
DX: N20.0 Calculus of kidney (principal); K80.20 Calculus of gallbladder without cholecystitis without obstruction; N13.30 Unspecified hydronephrosis; Z87.442 Personal history of urinary calculi
CPT/HCPCS: 36415; 74176; 80053; 81003; 81015; 83690; 85025; 96361; 96374; 99284; J1885

== ENCOUNTER 2023-03-26 02:24 | Emergency (ER) | payer OTHER, SELFPAY ==
[2020-09-20 07:39] VITALS: BMI 30.7
[2023-03-26] VITALS (11 sets, daily range): BP systolic 101–139; BP diastolic 56–75; PULSE 62–86; RESP 12–35; TEMP 36.4; O2SAT 93–100
--- NOTE | 2023-03-26 02:29 | DI.RAD.S_ITS ---
PROCEDURE: XR CHEST 1V INDICATIONS: chest pain TECHNIQUE: One view of the chest was acquired. COMPARISON: [facility], CR, XR CHEST 1V, 06/23/2019, 21:56. FINDINGS: Surgical changes and devices: None. Lungs and pleura: There is bilateral interstitial prominence and central pulmonary vascular congestion. No pleural effusion or pneumothorax. Mediastinum: Cardiac silhouette is enlarged, which is new when compared to the exam from 2019, but may be accentuated by portable technique. Bones and chest wall: No suspicious bony lesions. Overlying soft tissues appear unremarkable. IMPRESSION: Cardiomegaly and bilateral interstitial prominence is suspicious for pulmonary edema/congestive heart failure. An atypical or viral pneumonia is not excluded. There is no significant discrepancy when compared to the overnight preliminary report. Approved by: Vern Wan M.D. on 03/26/2023 at 8:14
[2023-03-26] MEDS: ONDANSETRON 4 MG/2 ML INJ IV (02:30)
[2023-03-26] MEDS: SODIUM CHLORIDE 0.9% 1,000 ML 1000 ML IV (02:30)
--- NOTE | 2023-03-26 02:30 | ED_ITS ---
HPI - General Adult General Chief complaint: Chest Pain Stated complaint: chest pain Time Seen by Provider: 03/26/23 02:26 Source: patient, family and EMS Mode of arrival: EMS History of Present Illness HPI narrative: Patient is a 52-year-old male. Was here in the emergency department a couple days ago and was diagnosed with a kidney stone and also gallstones however it appears that the gallstones were an incidental finding on the CT scan and the patient's presentation was for renal colic. Initially was somewhat difficult to ascertain as to why he was here as I had heard several things to include chest pain and shortness of breath but also vomiting and abdominal pain. It appears that the patient did smoke marijuana and also took his pain medication. He does have epigastric abdominal pain. Received morphine per EMS prior to arrival and also Zofran. He does have a recorded allergy to morphine of a rash although he does not have any rashes upon presentation. Patient was dry heaving. Was also reports of chest pain. No shortness of breath. Related Data Home Medications Medication Instructions Recorded Confirmed cholecalciferol (vitamin D3) 50 2,000 unit PO QPM ##0 07/26/17 09/20/20 mcg (2,000 unit) capsule (Vitamin D3) naproxen 250 mg tablet 250 mg PO PRN PRN Pain, Moderate 07/26/17 09/20/20 ##0 albuterol sulfate 90 mcg/actuation 2 puff inhalation Q4-6H PRN 12/17/18 09/20/20 aerosol inhaler Allergic Symptoms Previous Rx's Medication Instructions Recorded ondansetron 4 mg disintegrating 4 mg PO Q8H PRN nausea and 09/06/21 tablet vomiting #10 tabs ondansetron 4 mg disintegrating 4 mg PO TID-QID PRN nausea and 06/11/22 tablet vomiting #10 tabs pantoprazole 40 mg tablet,delayed 40 mg PO DAILY #30 tabs 06/11/22 release (Protonix) ondansetron 4 mg disintegrating 4 mg PO Q8H PRN nausea and 03/24/23 tablet vomiting #20 tabs oxycodone 5 mg tablet 5 mg PO Q6H PRN pain #20 tabs 03/24/23 tamsulosin 0.4 mg capsule 0.4 mg PO DAILY #90 caps 03/24/23 Allergies Allergy/AdvReac Type Severity Reaction Status Date / Time morphine Allergy Intermediate Rash Verified 03/23/23 21:47 meperidine [From DEMEROL] Allergy Unknown Verified 03/23/23 21:47 metoclopramide [From Reglan] AdvReac Anxiety Verified 03/23/23 21:47 Review of Systems Constitutional Constitutional: Reports system reviewed and no additional complaints, except as documented Cardiovascular Cardiovascular: Reports system reviewed and no additional complaints, except as documented Respiratory Respiratory: Reports system reviewed and no additional complaints, except as documented Gastrointestinal Gastrointestinal: Reports system reviewed and no additional complaints, except as documented Integumentary/Breasts Skin/Breast: Reports system reviewed and no additional complaints, except as documented Neurologic Neurologic: Reports system reviewed and no additional complaints, except as documented Patient History Medical History Chronic back pain Hypertension Kidney stones Surgical History History of lithotripsy Family History Father Myocardial infarct Mother Alcoholism Liver disease Social History household members: spouse and children Smoking Status: Never smoker alcohol intake: never substance use type: marijuana Smoking Status: Never smoker alcohol intake frequency: holidays/special occasions only Substance Use Type: marijuana Exam Initial Vital Signs Initial Vital Signs: Vital Signs Temperature 97.5 F L 03/26/23 02:25 Pulse Rate 86 03/26/23 02:25 Respiratory Rate 18 03/26/23 02:25 Blood Pressure 120/75 03/26/23 02:25 Pulse Oximetry 98 03/26/23 02:25 Oxygen Delivery Method Room Air 03/26/23 02:25 Const General: No ill appearing HENMT Head: normal to inspection and normocephalic Resp Effort & Inspection: normal respiratory effort Auscultation: clear to auscultation bilaterally Cardio Rate: regular rate Rhythm: regular rhythm GI Inspection: normal to inspection and non-distended Palpation: soft, No firm and tender (Epigastric region) Skin General: no rashes or lesions noted Neuro General: patient alert, patient awake and moves all extremities Extrem General: normal to inspection and capillary refill normal Course Orders Ordered: ED Orders 03/26/23 02:20 Complete Blood Count AUTO DIFF Stat Comprehensive Metabolic Panel Stat Ethanol (ETOH) Stat Lipase Stat Troponin & CK Cardiac Panel Stat 03/26/23 02:27 Urine Drug Screen, Rapid Stat EKG-12 Lead Stat 03/26/23 02:29 XR chest 1V Stat 03/26/23 02:40 XR abdomen 1V Stat 03/26/23 03:21 US abdomen limited Stat Discontinued Medications Sodium Chloride (Normal Saline 0.9%) 1,000 mls @ 1,000 mls/hr IV BOLUS ONE Stop: 03/26/23 03:25 Last Infusion: 03/26/23 03:56 Dose: 0 mls/hr Documented By: Admin: 03/26/23 02:30 Dose: 1,000 mls/hr Documented By: Lorazepam (Lorazepam 2 Mg/Ml Inj) 1 mg IV NOW ONE Stop: 03/26/23 03:22 Last Admin: 03/26/23 03:25 Dose: 1 mg Documented By: TONY Ondansetron HCl (Ondansetron 4 Mg/2 Ml Inj) 4 mg IV NOW ONE Stop: 03/26/23 02:27 Last Admin: 03/26/23 02:30 Dose: 4 mg Documented By: Vital Signs Vital signs: Vital Signs - 8 hr 03/26/23 02:25 03/26/23 02:31 03/26/23 02:46 Temperature 97.5 F L Pulse Rate 86 84 80 Respiratory Rate 18 24 35 H Blood Pressure 120/75 Pulse Oximetry 98 99 Oxygen Delivery Method Room Air 03/26/23 02:46 03/26/23 03:10 03/26/23 03:12 Temperature Pulse Rate 68 Respiratory Rate 31 H Blood Pressure 139/60 136/74 Pulse Oximetry 100 Oxygen Delivery Method 03/26/23 03:12 03/26/23 03:30 03/26/23 03:30 Temperature Pulse Rate 71 64 Respiratory Rate 31 H 12 Blood Pressure 123/69 Pulse Oximetry 99 93 Oxygen Delivery Method 03/26/23 04:00 03/26/23 04:00 03/26/23 04:30 Temperature Pulse Rate 69 Respiratory Rate 15 Blood Pressure 106/70 101/58 L Pulse Oximetry 96 Oxygen Delivery Method 03/26/23 04:30 03/26/23 05:00 03/26/23 05:00 Temperature Pulse Rate 67 65 Respiratory Rate Blood Pressure 105/59 L Pulse Oximetry 94 93 Oxygen Delivery Method 03/26/23 05:30 03/26/23 05:30 Temperature Pulse Rate 62 Respiratory Rate Blood Pressure 109/56 L Pulse Oximetry 93 Oxygen Delivery Method Medical Decision Making Lab Data Lab results reviewed: Yes I reviewed the patient's lab results. 03/26/23 02:20 03/26/23 02:20 Labs: Lab Results 03/26/23 03/26/23 03/26/23 Range/Units 02:20 02:20 02:20 WBC 12.3 H (4.5-11.0) X10^3/uL RBC 4.26 L (4.5-5.9) X10^6/uL Hgb 13.4 L (13.5-17.5) g/dL Hct 39.0 L (41-53) % MCV 91.5 (80-100) fL MCH 31.5 (26-34) PG MCHC 34.5 (30-36) % RDW 12.5 (11.6-14.8) % Plt Count 316 (150-400) X10^3/uL Neut % (Auto) 59.4 (50-75) % Lymph % (Auto) 27.8 (25-40) % [place] % (Auto) 6.5 (3-14) % Eos % (Auto) 5.3 H (2-4) % Baso % (Auto) 1.0 (0-2) % Neut # (Auto) 7300 H (7367-1545) /uL Lymph # (Auto) 3400 (0277-0936) /uL [place] # (Auto) 800 (0-900) /uL Eos # (Auto) 700 H (0-450) /uL Baso # (Auto) 100 (0-100) /uL Sodium 138 (137-145) mmol/L Potassium 3.6 (3.4-5.1) mmol/L Chloride 103 (98-107) mmol/L Carbon Dioxide 20 L (22-32) mmol/L BUN 23 H (9-20) mg/dL Creatinine 1.29 H (0.66-1.25) mg/dL Estimated GFR > 60 (>60) mL/min BUN/Creatinine Ratio 17.8 (6-22) Glucose 217 H D (70-100) mg/dL Calcium 9.0 (8.4-10.2) mg/dL Total Bilirubin 0.3 (0.2-1.3) mg/dL AST 25 (17-59) IU/L ALT 22 (<50) IU/L Alkaline Phosphatase 73 (38-126) U/L Total Creatine Kinase 245 H (55-170) U/L CK-MB (CK-2) TNP CK-MB (CK-2) Rel Index TNP Troponin I < 0.012 (0.01-0.034) ng/mL Total Protein 6.9 (6.3-8.2) g/dL Albumin 4.2 (3.5-5.0) g/dL Globulin 2.7 (1.7-4.1) g/dL Albumin/Globulin Ratio 1.6 (1.0-2.8) Lipase 973 H D (23-300) U/L Ethyl Alcohol < 10 ( - 10) mg/dL Imaging Data Chest x-ray: My Impression: Multifocal bilateral pulmonary infiltrates. Follow-up chest radiographs after appropriate treatment to document resolution Abdominal x-ray: Radiologist's Impression: Large volume of stool within the colon suggesting constipation. Nonobstructive but gas pattern without pneumoperitoneum US - abdomen: Radiologist's Impression: Cholelithiasis with 2 nonmobile gallstones within the neck of the gallbladder measuring up to 8 mm No sonographic features of acute cholecystitis. No gallbladder wall thickening, pericholecystic fluid or sonographic Cooley's sign. The common bile duct is normal in diameter. ECG Data Attestation: I personally reviewed and interpreted this ECG as follows: Interpretation: Sinus rhythm Ventricular rate is 65 Normal axis Normal QRS Normal QTC No ST T wave changes MDM Narrative Medical decision making narrative: After a period of time here in the emergency department the patient's symptoms improved. He does have gallstones but no signs of acute cholecystitis. His lipase is just above 900 however he is no left upper quadrant abdominal pain. He was able to tolerate oral intake without any pain. I am not convinced that he has pancreatitis or that his gallbladder is the cause of his symptoms. Low suspicion for a surgical pathologies so I feel that holding on another CT scan for now is warranted especially given the fact that he just had CT scan a couple days ago. Does have a vacation home. He stated that he did take a hit of his marijuana pen prior to the onset of the symptoms. He stated that he knew that he was going to start feeling lightheaded and nauseous with then made him very anxious which I suspect had something do with his symptoms today. Will discharge patient home. He was given return precautions expressed understanding and agreement with plan. Discharge Plan Departure Patient Disposition: Home Clinical Impression: Abdominal pain, Nausea and vomiting, Cholelithiasis Instructions: DI for Abdominal Pain-Adult Activity Restrictions/Additional Instructions: I do recommend that you contact the General surgery Department of the number provided below to discuss potentially having your gallbladder removed secondary to the stones in the gallbladder. I also recommend that you continue to take all of your medications as directed. Return to the emergency department for new symptoms. Prescriptions: No Action naproxen 250 MG tablet 250 mg PO PRN PRN (Reason: Pain, Moderate) Qty: 0 Rx Instructions: Pt reports that he takes 2 tabs every am cholecalciferol (vitamin D3) [Vitamin D3] 2,000 UNIT capsule 2,000 unit PO QPM Qty: 0 albuterol sulfate 90 mcg/actuation HFA aerosol inhaler 2 puff inhalation Q4-6H PRN (Reason: Allergic Symptoms) Patient Comments: inhale 1 to 2 puffs by mouth every 4 hours if needed for shortness ofbreath or wheezing ondansetron 4 mg tablet,disintegrating 4 mg PO Q8H PRN (Reason: nausea and vomiting) Qty: 10 0RF pantoprazole [Protonix] 40 mg tablet,delayed release (DR/EC) 40 mg PO DAILY Qty: 30 0RF ondansetron 4 mg tablet,disintegrating 4 mg PO TID-QID PRN (Reason: nausea and vomiting) Qty: 10 0RF oxycodone 5 mg tablet 5 mg PO Q6H PRN (Reason: pain) Qty: 20 0RF tamsulosin 0.4 mg capsule 0.4 mg PO DAILY Qty: 90 1RF ondansetron 4 mg tablet,disintegrating 4 mg PO Q8H PRN (Reason: nausea and vomiting) Qty: 20 1RF Referrals: Velma Todd ARNP [Primary Care Provider] - Rolando Norris MD [Physician] - Stand Alone Forms: Patient Portal/API
[2023-03-26 02:36] LABS: Add Manual Diff / Slide Review NO; Basophils Absolute Auto 100 /uL (0-100); Eosinophils Absolute Auto 700 /uL (0-450); Eosinophils Percent Auto 5.3 % (2-4); Hemoglobin 13.4 g/dL (13.5-17.5); Lymphocytes Absolute Auto 3400 /uL (1100-4500); Lymphocytes Percent Auto 27.8 % (25-40); Mean Corpuscular HGB Conc 34.5 % (30-36); Mean Corpuscular Hemoglobin 31.5 PG (26-34); Mean Corpuscular Volume 91.5 fL (80-100); Monocytes Absolute Auto 800 /uL (0-900); Monocytes Percent Auto 6.5 % (3-14); Neutrophils Absolute Auto 7300 /uL (1500-7000); Neutrophils Percent Auto 59.4 % (50-75); Platelet Count 316 X10^3/uL (150-400); Red Blood Cell Count 4.26 X10^6/uL (4.5-5.9); Red Cell Distribution Width 12.5 % (11.6-14.8); White Blood Cell Count 12.3 X10^3/uL (4.5-11.0)
--- NOTE | 2023-03-26 02:40 | DI.RAD.S_ITS ---
PROCEDURE: XR ABDOMEN 1V INDICATIONS: abd pain TECHNIQUE: One view of the abdomen acquired. COMPARISON: [facility], US, US ABDOMEN LIMITED, 03/26/2023, 4:08. [facility], CT, CT KIDNEY URETER BLADDER (KUB), 03/23/2023, 22:36. FINDINGS: Surgical changes and devices: None. Bowel: Bowel gas pattern is normal. Moderate stool is seen in the colon. Soft tissues: Small rounded calcifications are seen projecting over the right paraspinal region corresponding to the previously seen gallstones. Previously seen tiny renal and ureteral calculi are not well visualized radiographically. Visualized solid organ contours appear normal in size. Bones: No suspicious bony lesions. IMPRESSION: 1. Nonobstructive bowel gas pattern. Moderate stool in the colon. 2. Cholelithiasis. 3. Previously seen renal and ureteral calculi are not well visualized radiographically. Approved by: Vern Wan M.D. on 03/26/2023 at 8:19
[2023-03-26 02:44] LABS: Alanine Aminotransferase 22 IU/L (<50); Albumin 4.2 g/dL (3.5-5.0); Albumin Globulin Ratio 1.6 (1.0-2.8); Alkaline Phosphatase 73 U/L (38-126); Aspartate Aminotransferase 25 IU/L (17-59); BUN Creatinine Ratio 17.8 (6-22); Bilirubin Total 0.3 mg/dL (0.2-1.3); Blood Urea Nitrogen 23 mg/dL (9-20); Carbon Dioxide 20 mmol/L (22-32); Chloride 103 mmol/L (98-107); Estimated Glomerular Filt Rate > 60 mL/min (>60); Globulin 2.7 g/dL (1.7-4.1); HEMOLYSIS < 15 (0-50); Potassium 3.6 mmol/L (3.4-5.1); Sodium 138 mmol/L (137-145); Total Protein 6.9 g/dL (6.3-8.2)
[2023-03-26 02:45] LABS: Creatine Kinase 245 U/L (55-170); Ethanol (ETOH) < 10 mg/dL; Lipase 973 U/L (23-300)
[2023-03-26 02:54] LABS: Glucose 217 mg/dL (70-100)
[2023-03-26 02:56] LABS: Troponin I < 0.012 ng/mL (0.01-0.034)
--- NOTE | 2023-03-26 03:21 | DI.US.S_ITS ---
PROCEDURE: US ABDOMEN LIMITED INDICATIONS: RUQ PAIN TECHNIQUE: Real-time focused scanning was performed of the abdomen, with image documentation. COMPARISON: [facility], CT, CT KIDNEY URETER BLADDER (KUB), 03/23/2023, 22:36. FINDINGS: The liver is enlarged measuring 18.6 cm in maximum dimension, and is mildly increased in echogenicity. Gallbladder contains to calcified non mobile gallstones measuring up to 8 mm. No gallbladder wall thickening or pericholecystic fluid. Sonographic Cooley sign is negative. No intrahepatic or extrahepatic biliary ductal dilatation. Common bile duct measures 4.5 mm in diameter. Visualized portions of the pancreas are unremarkable. No free fluid in the right upper quadrant. IMPRESSION: 1. Cholelithiasis without signs of acute cholecystitis. 2. Hepatomegaly and mildly increased hepatic echogenicity are seen, most commonly secondary to diffuse hepatic steatosis but other sources of hepatocellular disease cannot be excluded. Recommend clinical correlation. There is no significant discrepancy when compared to the overnight preliminary report. Approved by: Vern Wan M.D. on 03/26/2023 at 8:21
[2023-03-26] MEDS: LORazepam 2 MG/ML INJ 1 MG IV (03:25)
== END 2023-03-26 06:29 | disposition home or self-care (01) ==
PROVIDERS: Emergency Provider Emergency Medicine; Family Provider Nurse Practitioner Gerontology; PCP Nurse Practitioner Gerontology
DX: K80.20 Calculus of gallbladder without cholecystitis without obstruction (principal); R11.2 Nausea with vomiting, unspecified; R10.12 Left upper quadrant pain
CPT/HCPCS: 71045; 74018; 76705; 80053; 80320; 82550; 83690; 84484; 85025; 93005; 96361; 96374; 96375; 99284; J2060; J2405

== ENCOUNTER 2024-10-16 15:54 | Emergency (ER) | payer OTHER, SELFPAY ==
[2020-09-20 07:39] VITALS: BMI 30.7
[2024-10-16 16:00] VITALS: BP 137/89; PULSE 81; RESP 18; TEMP 36.3; O2SAT 96; BMI 30.9
[2024-10-16] MEDS: ONDANSETRON 4 MG ODT SL (16:07)
[2024-10-16 17:16] LABS: Influenza A - CEPHEID Flu A NEGATIVE (NEGATIVE); Influenza B - CEPHEID Flu B NEGATIVE (NEGATIVE); Respiratory Syncytial Virus Negative (Negative)
[2024-10-16 17:20] LABS: COVID-19 CEPHEID 4-PLEX PCR Negative (Negative)
== END 2024-10-16 19:29 | disposition left against medical advice (07) ==
PROVIDERS: Emergency Medicine; Emergency Provider Emergency Medicine; Family Provider Nurse Practitioner Gerontology; PCP Nurse Practitioner Gerontology
DX: R11.2 Nausea with vomiting, unspecified (principal); R19.7 Diarrhea, unspecified; R68.83 Chills (without fever)
CPT/HCPCS: 0241U; 99283

== ENCOUNTER 2025-06-27 22:15 | Emergency (ER) | payer OTHER, SELFPAY ==
[2020-09-20 07:39] VITALS: BMI 30.7
[2025-06-27 22:25] VITALS: PULSE 84; O2SAT 96
[2025-06-27 22:27] VITALS: BP 167/93; PULSE 82; RESP 19; TEMP 37.1; O2SAT 96; BMI 33.7
[2025-06-27 22:30] VITALS: PULSE 93; O2SAT 96
[2025-06-27] MEDS: ONDANSETRON 4 MG/2 ML INJ IV (22:38)
--- NOTE | 2025-06-27 22:38 | EKG_ITS ---
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
[2025-06-27 22:51] LABS: Add Manual Diff / Slide Review NO; Hematocrit 42.8 % (41-53); Hemoglobin 14.6 g/dL (13.5-17.5); Lymphocytes Absolute Auto 700 /uL (1100-4500); Mean Corpuscular HGB Conc 34.2 % (30-36); Mean Corpuscular Hemoglobin 32.0 PG (26-34); Mean Corpuscular Volume 93.5 fL (80-100); Platelet Count 292 X10^3/uL (150-400)
[2025-06-27 23:00] VITALS: PULSE 75; O2SAT 95
[2025-06-27 23:01] LABS: Alanine Aminotransferase 35 IU/L (<50); Albumin 5.1 g/dL (3.5-5.0); Albumin Globulin Ratio 1.3 (1.0-2.8); Alkaline Phosphatase 89 U/L (38-126); Blood Urea Nitrogen 30 mg/dL (9-20); Calcium 10.3 mg/dL (8.4-10.2); Carbon Dioxide 22 mmol/L (22-32); Chloride 104 mmol/L (98-107); Estimated Glomerular Filt Rate 48 mL/min (>60); Globulin 4.0 g/dL (1.7-4.1); Glucose 172 mg/dL (70-99); HEMOLYSIS < 15 (0-50); Lipase 34 U/L (23-300); Potassium 3.8 mmol/L (3.4-5.1); Sodium 140 mmol/L (137-145); Total Protein 9.1 g/dL (6.3-8.2)
[2025-06-27 23:30] VITALS: PULSE 75; RESP 17; O2SAT 97
[2025-06-28] VITALS (8 sets, daily range): BP systolic 131–147; BP diastolic 74–82; PULSE 72–79; RESP 12–19; O2SAT 94–97
--- NOTE | 2025-06-28 00:19 | DI.CT.S_ITS ---
PROCEDURE: CT ABDOMEN PELVIS W CON INDICATIONS: abd pain TECHNIQUE: After the administration of intravenous contrast, axial sections acquired from the lung bases to the pubic symphysis. Coronal and sagittal reformats were performed. For radiation dose reduction, the following was used: automated exposure control, adjustment of mA and/or kV according to patient size. COMPARISON: [facility], CT, CT ABDOMEN PELVIS W CON, 09/20/2020, 1:34. FINDINGS: Image quality: Diagnostic. Lower Chest: Bilateral lung bases are clear. The heart size is normal, no pericardial effusion. Small hiatal hernia. ABDOMEN: Liver: No solid mass. Brpm-is-fodtzcty hepatic steatosis. Gallbladder: 2 calcified stones are seen in dependent portion of gallbladder lumen. No gallbladder wall thickening. Biliary ducts: No biliary dilation. Pancreas: No ductal dilation. Spleen: Size is within normal limits. Adrenal Glands: No adrenal nodules. Kidneys and Ureters: No hydronephrosis. No solid mass. No complex renal cystic lesion which requires follow up. Stomach and Bowel: There is no bowel obstruction. No gastric or small bowel wall thickening. Appendix is visualized in right lower quadrant and is within normal limits. Mild diffuse colonic wall thickening which may be due to under distension. Low- grade infectious inflammatory colitis cannot be excluded. No abscess collection. Peritoneum: No abnormal intraperitoneal fluid. No free air. Ventral Wall: No significant ventral hernia. Abdominal Nodes: No retroperitoneal or mesenteric adenopathy by size criteria. Vessels: Aorta and inferior vena cava are normal in size. PELVIS: Pelvic Organs: Unremarkable. Bladder: No bladder wall thickening, accounting for underdistention. Pelvic Nodes: No enlarged lymph nodes. Miscellaneous: Small bilateral inguinal hernia are seen containing fat only. Bones: No aggressive osseous abnormality. Loss of disc height and degenerative endplate changes are noted at L5-S1 level. Dorsal to left-sided disc herniation and disc osteophyte complex formation is seen causing moderate to severe left-sided neural foraminal. IMPRESSION: 1. Questionable mild diffuse colonic wall thickening concerning for low-grade infectious or inflammatory colitis. No bowel obstruction. Normal appendix. No free fluid or free air. 2. No obstructing renal stones or hydronephrosis. 3. Cholelithiasis without CT evidence of acute cholecystitis. [id number] hepatic steatosis. No discrete hepatic lesion. 4. Degenerative disc disease at L5-S1 level. Dictated by: Luis Gomez M.D. on 06/28/2025 at 1:04 Approved by: Luis Gomez M.D. on 06/28/2025 at 1:08
--- NOTE | 2025-06-28 00:38 | ED.ABDPAIN ---
HPI - Abdominal Pain General Chief Complaint: Abdominal Pain Stated Complaint: N/V Time Seen by Provider: 06/28/25 00:01 Source: patient Mode of arrival: Ambulatory History of Present Illness HPI narrative: 55-year-old male complains of epigastric area discomfort since yesterday. Some nausea without emesis. History of naproxen use, does not recall ulcers of the stomach diagnosis. No black or red stools. No fevers or chills. No cough or shortness of breath. No painful or frequent urination. He is currently not taking any antibacterial agents. Feels less nauseated after ODT Zofran dose. Related Data Home Medications ?Medication ?Instructions ?Recorded ?Confirmed cholecalciferol (vitamin D3) 50 2,000 unit PO QPM ##0 07/26/17 09/20/20 mcg (2,000 unit) capsule (Vitamin D3) naproxen 250 mg tablet 250 mg PO PRN PRN Pain, Moderate 07/26/17 09/20/20 ##0 albuterol sulfate 90 mcg/actuation 2 puff inhalation Q4-6H PRN 12/17/18 09/20/20 aerosol inhaler Allergic Symptoms Previous Rx's ?Medication ?Instructions ?Recorded ondansetron 4 mg disintegrating 4 mg PO Q8H PRN nausea and 09/06/21 tablet vomiting #10 tabs ondansetron 4 mg disintegrating 4 mg PO TID-QID PRN nausea and 06/11/22 tablet vomiting #10 tabs pantoprazole 40 mg tablet,delayed 40 mg PO DAILY #30 tabs 06/11/22 release (Protonix) ondansetron 4 mg disintegrating 4 mg PO Q8H PRN nausea and 03/24/23 tablet vomiting #20 tabs oxycodone 5 mg tablet 5 mg PO Q6H PRN pain #20 tabs 03/24/23 tamsulosin 0.4 mg capsule 0.4 mg PO DAILY #90 caps 03/24/23 amoxicillin 875 mg-potassium 1 tab PO BID #20 tabs 06/28/25 clavulanate 125 mg tablet Allergies Allergy/AdvReac Type Severity Reaction Status Date / Time morphine Allergy Intermediate Rash Verified 06/27/25 22:28 meperidine (From DEMEROL) Allergy Unknown Verified 06/27/25 22:28 metoclopramide (From Reglan) AdvReac Anxiety Verified 06/27/25 22:28 Patient History Medical History Chronic back pain Hypertension Kidney stones Surgical History History of lithotripsy Family History Father Myocardial infarct Mother Alcoholism Liver disease Social History household members: spouse and children alcohol intake: never substance use type: marijuana alcohol intake frequency: holidays/special occasions only Exam Narrative Exam Narrative: GENERAL: Well-developed patient, in mild distress. HEAD: Atraumatic. Normocephalic. EYES: Pupils equal round and reactive. Extraocular motions intact. No scleral icterus. No injection or drainage. ENT: Nose without bleeding, purulent drainage. Throat without erythema, tonsillar hypertrophy or exudate. Airway patent. NECK: Trachea midline. Non tender CARDIOVASCULAR: Regular rate and rhythm without murmurs, gallops, or rubs. RESPIRATORY: Clear to auscultation. Breath sounds equal bilaterally. No wheezes, rales, or rhonchi. GASTROINTESTINAL: Abdomen soft, non-tender, nondistended. EXTREMITIES: No edema or joint tenderness. BACK: Nontender without deformity or crepitance. No flank tenderness. NEURO: AOx3. Motor functions grossly nonfocal. SKIN: No rash or erythema of visible areas Initial Vital Signs Initial Vital Signs: Vital Signs Pulse Rate 84 06/27/25 22:25 Pulse Oximetry 96 06/27/25 22:25 Course Orders Ordered: ED Orders 06/27/25 22:27 EKG-12 Lead Stat 06/27/25 22:40 Complete Blood Count AUTO DIFF Stat Comprehensive Metabolic Panel Stat Lipase Stat 06/28/25 00:18 Urinalysis and Microscopic Stat 06/28/25 00:19 CT abdomen pelvis w con Stat Discontinued Medications Hydromorphone HCl (Hydromorphone Hcl 0.5 Mg/0.5 Ml Syringe) 0.5 mg IV NOW ONE Stop: 06/28/25 00:02 Last Admin: 06/28/25 00:18 Dose: 0.5 mg Documented By: IMELDA Hydromorphone HCl (Hydromorphone Hcl 0.5 Mg/0.5 Ml Syringe) 0.5 mg IV NOW ONE Stop: 06/28/25 01:30 Last Admin: 06/28/25 01:45 Dose: 0.5 mg Documented By: LUCI Piperacillin Sod/Tazobactam (Sod 4.5 gm/ Sodium Chloride) 100 mls @ 200 mls/hr IV NOW ONE Stop: 06/28/25 01:30 Last Admin: 06/28/25 01:45 Dose: 200 mls/hr Documented By: LUCI Sodium Chloride (Normal Saline 0.9%) 1,000 mls @ 1,000 mls/hr IV BOLUS ONE Stop: 06/28/25 02:43 Last Admin: 06/28/25 01:54 Dose: 1,000 mls/hr Documented By: LUCI Ondansetron HCl (Ondansetron 4 Mg/2 Ml Inj) 4 mg IV NOW PRN PRN Reason: Nausea And Vomiting Last Admin: 06/28/25 01:54 Dose: 4 mg Documented By: Admin: 06/27/25 22:38 Dose: 4 mg Documented By: RAQUEL Ondansetron HCl (Ondansetron 4 Mg Odt) 4 mg PO NOW PRN PRN Reason: Nausea And Vomiting Ondansetron HCl (Ondansetron 4 Mg Odt Prepack) 1 bottle MISC DIRECTED ONE Stop: 06/28/25 01:37 Last Admin: 06/28/25 02:32 Dose: 1 bottle Documented By: YUDITH Ondansetron HCl (Ondansetron 4 Mg/2 Ml Inj) 4 mg IV NOW ONE Stop: 06/28/25 01:53 Last Admin: 06/28/25 01:57 Dose: Not Given Documented By: LUCI Tramadol HCl (Tramadol 50 Mg Prepack) 1 bottle MISC DIRECTED ONE Stop: 06/28/25 01:37 Last Admin: 06/28/25 02:32 Dose: 1 bottle Documented By: YDUITH Vital Signs Vital signs: Vital Signs - 8 hr 06/27/25 22:25 06/27/25 22:27 06/27/25 22:30 Temperature 98.7 F Pulse Rate 84 82 93 H Respiratory Rate 19 Blood Pressure 167/93 H Pulse Oximetry 96 96 96 Oxygen Delivery Method Room Air 06/27/25 23:00 06/27/25 23:30 06/28/25 00:24 Temperature Pulse Rate 75 75 79 Respiratory Rate 17 13 Blood Pressure Pulse Oximetry 95 97 97 Oxygen Delivery Method Room Air 06/28/25 00:25 06/28/25 00:25 06/28/25 00:30 Temperature Pulse Rate 76 75 Respiratory Rate 15 12 Blood Pressure 141/82 H Pulse Oximetry 97 Oxygen Delivery Method Room Air 06/28/25 00:45 06/28/25 00:45 06/28/25 01:00 Temperature Pulse Rate 79 78 Respiratory Rate 17 19 Blood Pressure 140/74 Pulse Oximetry 96 94 Oxygen Delivery Method Room Air Room Air 06/28/25 01:00 06/28/25 01:30 06/28/25 01:30 Temperature Pulse Rate 74 Respiratory Rate 18 Blood Pressure 131/77 147/80 H Pulse Oximetry 97 Oxygen Delivery Method 06/28/25 02:00 06/28/25 02:00 06/28/25 02:30 Temperature Pulse Rate 72 75 Respiratory Rate 13 18 Blood Pressure 134/75 Pulse Oximetry 95 96 Oxygen Delivery Method Room Air 06/28/25 02:30 Temperature Pulse Rate Respiratory Rate Blood Pressure 132/79 Pulse Oximetry Oxygen Delivery Method MDM - Abdominal Pain Lab Data Attestation: I reviewed the patient's lab results. Lab results narrative: White blood cell count 17639, hemoglobin 14.6, platelets adequate. Glucose 172. BUN 30 with creatinine 1.7, increased creatinine compared to previous values. Serum CO2 22 normal, normal electrolytes. Liver functions and lipase normal. Urinalysis negative. 06/27/25 22:40 06/27/25 22:40 Labs: Lab Results 06/27/25 06/28/25 Range/Units 22:40 00:18 WBC 15.0 H (4.5-11.0) X10^3/uL RBC 4.58 (4.5-5.9) X10^6/uL Hgb 14.6 (13.5-17.5) g/dL Hct 42.8 (41-53) % MCV 93.5 (80-100) fL MCH 32.0 (26-34) PG MCHC 34.2 (30-36) % RDW 12.5 (11.6-14.8) % Plt Count 292 (150-400) X10^3/uL Neut % (Auto) 89.7 H (50-75) % Lymph % (Auto) 4.8 L (25-40) % [place] % (Auto) 5.1 (3-14) % Eos % (Auto) 0.0 L (2-4) % Baso % (Auto) 0.4 (0-2) % Neut # (Auto) 65446 H (7412-1328) /uL Lymph # (Auto) 700 L (8828-6403) /uL [place] # (Auto) 800 (0-900) /uL Eos # (Auto) 0 (0-450) /uL Baso # (Auto) 100 (0-100) /uL Sodium 140 (137-145) mmol/L Potassium 3.8 (3.4-5.1) mmol/L Chloride 104 (98-107) mmol/L Carbon Dioxide 22 (22-32) mmol/L BUN 30 H (9-20) mg/dL Creatinine 1.70 H (0.66-1.25) mg/dL Estimated GFR 48 L (>60) mL/min BUN/Creatinine Ratio 17.6 (6-22) Glucose 172 H (70-99) mg/dL Calcium 10.3 H (8.4-10.2) mg/dL Total Bilirubin 1.2 (0.2-1.3) mg/dL AST 43 (17-59) IU/L ALT 35 (<50) IU/L Alkaline Phosphatase 89 (38-126) U/L Total Protein 9.1 H (6.3-8.2) g/dL Albumin 5.1 H (3.5-5.0) g/dL Globulin 4.0 (1.7-4.1) g/dL Albumin/Globulin Ratio 1.3 (1.0-2.8) Lipase 34 (23-300) U/L Urine Color Dark yellow Urine Appearance Clear Urine pH 5.5 (4.5-8.0) Ur Specific [place] >=1.030 H (1.000-1.035) Urine Protein 2+ H (Negative) Urine Glucose (UA) Negative (Negative) g/dL Urine Ketones Negative (NEGATIVE) Urine Occult Blood 1+ H (Negative) Urine Nitrate Negative (Negative) Urine Bilirubin Negative (NEGATIVE) Urine Urobilinogen 1.0 (0.2) E.U./dL Ur Leukocyte Esterase Negative (NEGATIVE) Urine RBC 1-5/hpf (0-5/HPF) Urine WBC None seen (0-5/HPF) Ur Squamous Epith Cells 0-1 /hpf (0-5/HPF) Amorphous Sediment 2+ Urine Bacteria Few (2-10) H (None) Hyaline Casts 0-1/lpf (None) Urine Mucus 3+ H D (Negative) Ur Culture Indicated? Cult not indicated Vol Urine Centrifuged 10ml (spun) ECG Data Attestation: I personally reviewed and interpreted this ECG as follows: Interpretation: 2238, normal sinus rhythm with rate of 82, no obvious ST segment elevation or depression changes. MO 140, QRS 82, QTC 474. MDM Narrative Medical decision making narrative: 55-year-old male with central upper abdominal pain, some epigastrium.. Afebrile, sirs screen negative. DDx consider gastritis, PUD, SCOT, pancreatitis, diverticulitis, colitis, enteritis, constipation, hernia, UTI, other. Labs pending. Lab data: White blood cell count 80638, hemoglobin 14.6, platelets adequate. Glucose 172. BUN 30 with creatinine 1.7, increased creatinine compared to previous values. Serum CO2 22 normal, normal electrolytes. Liver functions and lipase normal. Urinalysis negative. CT abdomen and pelvis shows colitis changes, no obstruction, no abscess, no perforation. Incidental cholelithiasis also noted. See radiology report. NKDA. IV Zosyn. Patient elects to have further treatment as an outpatient. Prescription for Augmentin 10 day course sent to his requested pharmacy. Home pack opioid analgesics to use if needed. Discharged home with family. Recheck advised in the next couple of days. Return precautions discussed. Discharge Plan Departure Patient Disposition: Home Clinical Impression: Colitis, SHORTY (acute kidney injury), Cholelithiasis Instructions: DI for Colitis Activity Restrictions/Additional Instructions: Abdominal pain, history of kidney stones, history of previous bowel obstruction. Pain improved with IV pain medications and with fluids. CT showed colitis changes, inflammation of the large intestine but without any obstruction or perforation or abscess complications at this time. Also noted on CT imaging was gallstones but no infection changes of the gallbladder at this time. IV antibiotics Zosyn given, prescription sent to your preferred pharmacy for further course of antibiotic with Augmentin. Please take antibiotics as directed for duration advised. Home pack of tramadol pain medication and ondansetron antinausea medication for discharge. On blood testing your kidney function was worse than in recent months comparison studies, we gave IV fluids, hopefully this will improve, we did discuss staying to be admitted in the hospital, declined. Recheck kidney function with your regular doctor later this week in clinic. Return to this/nearest emergency department for any change worsening symptoms or any concerns prior Prescriptions: New amoxicillin-pot clavulanate 875-125 mg tablet 1 tab PO BID Qty: 20 0RF No Action naproxen 250 MG tablet 250 mg PO PRN PRN (Reason: Pain, Moderate) Qty: 0 Rx Instructions: Pt reports that he takes 2 tabs every am cholecalciferol (vitamin D3) [Vitamin D3] 2,000 UNIT capsule 2,000 unit PO QPM Qty: 0 albuterol sulfate 90 mcg/actuation HFA aerosol inhaler 2 puff inhalation Q4-6H PRN (Reason: Allergic Symptoms) Patient Comments: inhale 1 to 2 puffs by mouth every 4 hours if needed for shortness ofbreath or wheezing ondansetron 4 mg tablet,disintegrating 4 mg PO Q8H PRN (Reason: nausea and vomiting) Qty: 10 0RF pantoprazole [Protonix] 40 mg tablet,delayed release (DR/EC) 40 mg PO DAILY Qty: 30 0RF ondansetron 4 mg tablet,disintegrating 4 mg PO TID-QID PRN (Reason: nausea and vomiting) Qty: 10 0RF oxycodone 5 mg tablet 5 mg PO Q6H PRN (Reason: pain) Qty: 20 0RF tamsulosin 0.4 mg capsule 0.4 mg PO DAILY Qty: 90 1RF ondansetron 4 mg tablet,disintegrating 4 mg PO Q8H PRN (Reason: nausea and vomiting) Qty: 20 1RF Referrals: Velma Todd ARNP [Primary Care Provider, Medical] Stand Alone Forms: Patient Portal/API
[2025-06-28 00:39] LABS: Appearance Urine UA CLEAR; Bilirubin Urine UA NEGATIVE (NEGATIVE); Glucose Urine UA NEGATIVE (Negative); Ketones Urine UA NEGATIVE (NEGATIVE); Leukocyte Esterase Urine UA NEGATIVE (NEGATIVE); Nitrite Urine UA NEGATIVE (Negative); Occult Blood Urine UA 1+ (Negative); Protein Urine UA 2+ (Negative); Specific Gravity Urine UA >=1.030 (1.000-1.035); Urobilinogen Urine UA 1.0 E.U./dL (0.2); pH Urine UA 5.5 (4.5-8.0)
[2025-06-28 00:44] LABS: Color Urine UA Dark Yellow
[2025-06-28 00:53] LABS: Culture Indicated Urine Cult Not Indicated
[2025-06-28] MEDS: PIPERACILLIN/TAZO 4.5 GM in SODIUM CHLORIDE 0.9% 100 ML IV (01:45)
[2025-06-28] MEDS: SODIUM CHLORIDE 0.9% 1,000 ML 1000 ML IV (01:54)
[2025-06-28] MEDS: ONDANSETRON 4 MG/2 ML INJ IV (01:54)
[2025-06-28] MEDS: ONDANSETRON 4 MG ODT PREPACK 1 BOTTLE MISC (02:32)
== END 2025-06-28 02:54 | disposition home or self-care (01) ==
PROVIDERS: Emergency Provider Emergency Medicine; Family Provider Nurse Practitioner Gerontology; PCP Nurse Practitioner Gerontology
DX: K52.9 Noninfective gastroenteritis and colitis, unspecified (principal); N17.9 Acute kidney failure, unspecified; K80.20 Calculus of gallbladder without cholecystitis without obstruction
CPT/HCPCS: 36415; 74177; 80053; 81001; 83690; 85025; 93005; 93010; 96374; 96375; 96376; 99284; J1171; J2405; J2543; Q9967

== ENCOUNTER 2025-06-30 15:48 | Emergency (ER) | payer OTHER, SELFPAY ==
[2020-09-20 07:39] VITALS: BMI 30.7
[2025-06-30] VITALS (8 sets, daily range): BP systolic 131–169; BP diastolic 94–95; PULSE 65–73; RESP 18; TEMP 36.6; O2SAT 94–97; BMI 33.7
[2025-06-30 16:16] LABS: Culture Indicated Urine Cult Not Indicated
[2025-06-30 16:26] LABS: Add Manual Diff / Slide Review NO; Hematocrit 38.7 % (41-53); Hemoglobin 13.3 g/dL (13.5-17.5); Lymphocytes Absolute Auto 1000 /uL (1100-4500); Mean Corpuscular HGB Conc 34.4 % (30-36); Mean Corpuscular Hemoglobin 32.2 PG (26-34); Mean Corpuscular Volume 93.6 fL (80-100); Platelet Count 250 X10^3/uL (150-400)
[2025-06-30 16:37] LABS: Alanine Aminotransferase 32 IU/L (<50); Albumin 4.5 g/dL (3.5-5.0); Albumin Globulin Ratio 1.5 (1.0-2.8); Alkaline Phosphatase 75 U/L (38-126); Blood Urea Nitrogen 24 mg/dL (9-20); Calcium 9.1 mg/dL (8.4-10.2); Carbon Dioxide 24 mmol/L (22-32); Chloride 106 mmol/L (98-107); Estimated Glomerular Filt Rate > 60 mL/min (>60); Globulin 3.1 g/dL (1.7-4.1); Glucose 114 mg/dL (70-99); HEMOLYSIS < 15 (0-50); Lipase 371 U/L (23-300); Potassium 4.0 mmol/L (3.4-5.1); Sodium 142 mmol/L (137-145); Total Protein 7.6 g/dL (6.3-8.2)
[2025-06-30] MEDS: ONDANSETRON 4 MG/2 ML INJ IV (16:43)
--- NOTE | 2025-06-30 16:54 | DI.US.S_ITS ---
PROCEDURE: US SCROTUM INDICATIONS: testicular pain TECHNIQUE: Real-time scanning was performed of the scrotum and testicles, with image documentation. Color and pulse Doppler interrogation was performed of both testicles. COMPARISON: None. FINDINGS: Right: Testicle is normal in size at 4.9 x 3.4 x 2.1 cm, and homogenous in echotexture. Small 3 mm round epididymal head cyst. Vascularity throughout the epididymis is diffusely increased. Trace hydrocele. No o varicoceles. Overlying scrotal skin is normal in thickness. Mildly increased vascularity. Left: Testicle is normal in size at 5.3 x 2.8 x 2.2 cm, and homogeneous in echotexture. There is a decompressing epididymal head cyst measuring about 6 mm. There is diffusely increased vascularity throughout the epididymis. No hydrocele or varicoceles. Overlying scrotal skin is normal in thickness. Mildly increased vascularity. Doppler: Color and pulse Doppler demonstrate normal and symmetric arterial flow in both testicles. IMPRESSION: Hyperemia of the epididymi and overlying scrotal skin suggestive of infection and/or inflammation. Normal testicular morphology bilaterally. Preliminary report conveyed by the upkeep worker to the ordering provider. Dictated by: Roxy Hassan M.D. on 06/30/2025 at 18:03 Approved by: Roxy Hassan M.D. on 06/30/2025 at 18:06
--- NOTE | 2025-06-30 16:58 | ED_ITS ---
HPI - Male Genitourinary <Mg Hawk MD - Last Filed: 06/30/25 17:04> General Chief complaint: Urogenital-Male Stated complaint: kidney stone or bladder infection? Time Seen by Provider: 06/30/25 16:37 Source: patient Mode of arrival: Ambulatory History of Present Illness HPI Narrative: This is a 55-year-old male with a history of kidney stones who was seen in the emergency department on 28 of June with diarrhea and abdominal pain. CT at that time showed changes for possible colitis had a white count of 15,000 a creatinine of 1.7 was started on Augmentin. Beginning last night he was having right flank and testicular pain. He also had nausea and vomiting. He is also having dysuria. Patient reports that this pain is similar to what he had had previously with kidney stones although he can not be sure because he has had ?all kinds of pain? with kidney stones. He has not had fevers he has been diaphoretic although he reports that this is common for him when he is in pain. He has not noted blood in his urine he has continued to have some nonbloody diarrhea. Patient states that he is and has not been sexually active in greater than 5 years. Related Data Home Medications ?Medication ?Instructions ?Recorded ?Confirmed cholecalciferol (vitamin D3) 50 2,000 unit PO QPM ##0 07/26/17 09/20/20 mcg (2,000 unit) capsule (Vitamin D3) naproxen 250 mg tablet 250 mg PO PRN PRN Pain, Mode rate 07/26/17 09/20/20 ##0 albuterol sulfate 90 mcg/actuation 2 puff inhalation Q 4-6H PRN 12/17/18 09/20/20 aerosol inhaler Allergic Symptoms Previous Rx's ?Medication ?Instructions ?Recorded ondansetron 4 mg disintegrating 4 mg PO Q8H PRN nausea and 09/06/21 tablet vomiting #10 tabs ondansetron 4 mg disintegrating 4 mg PO TID-QID PRN na usea and 06/11/22 tablet vomiting #10 tabs pantoprazole 40 mg tablet,delayed 40 mg PO DAILY #30 t abs 06/11/22 release (Protonix) ondansetron 4 mg disintegrating 4 mg PO Q8H PRN nausea and 03/24/23 tablet vomiting #20 tabs oxycodone 5 mg tablet 5 mg PO Q6H PRN pain #20 tab s 03/24/23 tamsulosin 0.4 mg capsule 0.4 mg PO DAILY #90 caps 09/05 amoxicillin 875 mg-potassium 1 tab PO BID #20 tabs clavulanate 125 mg tablet levofloxacin 750 mg tablet 750 mg PO DAILY 7 days #7 t abs 06/30/25 ondansetron 4 mg disintegrating 4 mg PO Q6H PRN nausea and 06/30/25 tablet vomiting #5 tabs oxycodone-acetaminophen 5 mg-325 1 tab PO Q6H PRN pain #10 tabs 06/30/25 mg tablet (Percocet) tamsulosin 0.4 mg capsule (Flomax) 0.4 mg PO DAILY #7 caps 06/30/25 Allergies Allergy/AdvReac Type Severity Reaction Status Date / Time morphine Allergy Intermediate Rash Verified 06/27/25 22:28 meperidine (From DEMEROL) Allergy Unknown Verified 06/27/25 22:28 metoclopramide (From Reglan) AdvReac Anxiety Verified 06/27/25 22:28 Patient History <Mg Hawk MD - Last Filed: 06/30/25 17:04> Medical History Chronic back pain Hypertension Kidney stones Surgical History History of lithotripsy Family History Father Myocardial infarct Mother Alcoholism Liver disease Social History household members: spouse and children Smoking Status: Never smoker alcohol intake: never substance use type: marijuana Smoking Status: Never smoker alcohol intake frequency: holidays/special occasions only Exam <Mg Hawk MD - Last Filed: 06/30/25 17:04> Initial Vital Signs Initial Vital Signs: Vital Signs Temperature 97.9 F 06/30/25 15:50 Pulse Rate 70 06/30/25 15:50 Respiratory Rate 18 06/30/25 15:50 Blood Pressure 169/95 H 06/30/25 15:50 Pulse Oximetry 95 06/30/25 15:50 Oxygen Delivery Method Room Air 06/30/25 15:50 Not febrile or hypotensive Const Other: Appears to be in painful distress and diaphoretic [facility] Other: Normocephalic and atraumatic Resp Other: Lungs are clear equal breath sounds Cardio Other: Regular rhythm rate no murmur rub or gallop GI Other: Normal bowel sounds soft diffuse tenderness with voluntary guarding throughout Other: No CVAT. Normal uncircumcised male genitalia. Testicles are normal to palpation he has a left testicular tenderness Skin Other: Diaphoretic Neuro Other: Alert and oriented without deficits <Elke Rosario DO - Last Filed: 06/30/25 23:27> Initial Vital Signs Initial Vital Signs: Vital Signs Temperature 97.9 F 06/30/25 15:50 Pulse Rate 70 06/30/25 15:50 Respiratory Rate 18 06/30/25 15:50 Blood Pressure 169/95 H 06/30/25 15:50 Pulse Oximetry 95 06/30/25 15:50 Oxygen Delivery Method Room Air 06/30/25 15:50 Course <Mg Hawk MD - Last Filed: 06/30/25 17:04> Orders Ordered: ED Orders 06/30/25 16:00 Urine Microscopic Stat 06/30/25 16:10 Complete Blood Count AUTO DIFF Stat Comprehensive Metabolic Panel Stat Lipase Stat 06/30/25 16:54 US scrotum Stat 06/30/25 17:05 CT kidney ureter bladder (KUB) Stat Discontinued Medications Hydrocodone Bitart/Acetaminophen (Hydrocodone/Acet 5/325 Tablet) 2 tab PO NOW ONE Stop: 06/30/25 18:29 Last Admin: 06/30/25 18:32 Dose: 2 tab Documented By: FABIAN Hydromorphone HCl (Hydromorphone 1 Mg/Ml Syringe) 1 mg IV NOW ONE Stop: 06/30/25 16:38 Last Admin: 06/30/25 16:43 Dose: 1 mg Documented By: JUAREZ Hydromorphone HCl (Hydromorphone 1 Mg/Ml Syringe) 1 mg IV NOW ONE Stop: 06/30/25 17:59 Last Admin: 06/30/25 18:40 Dose: Not Given Documented By: JUAREZ Sodium Chloride (Normal Saline 0.9%) 1,000 mls @ 1,000 mls/hr IV BOLUS ONE Stop: 06/30/25 17:53 Last Infusion: 06/30/25 18:25 Dose: Infused Documented By: Admin: 06/30/25 17:03 Dose: 1,000 mls/hr Documented By: FABIAN Ondansetron HCl (Ondansetron 4 Mg/2 Ml Inj) 4 mg IV NOW PRN PRN Reason: Nausea And Vomiting Last Admin: 06/30/25 16:43 Dose: 4 mg Documented By: JUAREZ Ondansetron HCl (Ondansetron 4 Mg Odt) 4 mg PO NOW PRN PRN Reason: Nausea And Vomiting Tamsulosin HCl (Tamsulosin 0.4 Mg Capsule) 0.4 mg PO NOW ONE Stop: 06/30/25 18:29 Last Admin: 06/30/25 18:32 Dose: 0.4 mg Documented By: FABIAN Vital Signs Vital signs: Vital Signs - 8 hr 06/30/25 15:50 06/30/25 16:12 06/30/25 16:13 Temperature 97.9 F Pulse Rate 70 69 Respiratory Rate 18 Blood Pressure 169/95 H 131/94 H Pulse Oximetry 95 97 Oxygen Delivery Method Room Air 06/30/25 16:13 06/30/25 16:45 06/30/25 17:00 Temperature Pulse Rate 73 71 65 Respiratory Rate Blood Pressure Pulse Oximetry 97 97 95 Oxygen Delivery Method 06/30/25 17:30 06/30/25 18:00 06/30/25 18:30 Temperature Pulse Rate 66 66 65 Respiratory Rate Blood Pressure Pulse Oximetry 97 94 96 Oxygen Delivery Method <Elke Rosario DO - Last Filed: 06/30/25 23:27> Orders Ordered: ED Orders 06/30/25 16:00 Urine Microscopic Stat 06/30/25 16:10 Complete Blood Count AUTO DIFF Stat Comprehensive Metabolic Panel Stat Lipase Stat 06/30/25 16:54 US scrotum Stat 06/30/25 17:05 CT kidney ureter bladder (KUB) Stat Discontinued Medications Hydrocodone Bitart/Acetaminophen (Hydrocodone/Acet 5/325 Tablet) 2 tab PO NOW ONE Stop: 06/30/25 18:29 Last Admin: 06/30/25 18:32 Dose: 2 tab Documented By: FABIAN Hydromorphone HCl (Hydromorphone 1 Mg/Ml Syringe) 1 mg IV NOW ONE Stop: 06/30/25 16:38 Last Admin: 06/30/25 16:43 Dose: 1 mg Documented By: JUAREZ Hydromorphone HCl (Hydromorphone 1 Mg/Ml Syringe) 1 mg IV NOW ONE Stop: 06/30/25 17:59 Last Admin: 06/30/25 18:40 Dose: Not Given Documented By: JUAREZ Sodium Chloride (Normal Saline 0.9%) 1,000 mls @ 1,000 mls/hr IV BOLUS ONE Stop: 06/30/25 17:53 Last Infusion: 06/30/25 18:25 Dose: Infused Documented By: Admin: 06/30/25 17:03 Dose: 1,000 mls/hr Documented By: FABIAN Ondansetron HCl (Ondansetron 4 Mg/2 Ml Inj) 4 mg IV NOW PRN PRN Reason: Nausea And Vomiting Last Admin: 06/30/25 16:43 Dose: 4 mg Documented By: JUAREZ Ondansetron HCl (Ondansetron 4 Mg Odt) 4 mg PO NOW PRN PRN Reason: Nausea And Vomiting Tamsulosin HCl (Tamsulosin 0.4 Mg Capsule) 0.4 mg PO NOW ONE Stop: 06/30/25 18:29 Last Admin: 06/30/25 18:32 Dose: 0.4 mg Documented By: FABIAN Vital Signs Vital signs: Vital Signs - 8 hr 06/30/25 15:50 06/30/25 16:12 06/30/25 16:13 Temperature 97.9 F Pulse Rate 70 69 Respiratory Rate 18 Blood Pressure 169/95 H 131/94 H Pulse Oximetry 95 97 Oxygen Delivery Method Room Air 06/30/25 16:13 06/30/25 16:45 06/30/25 17:00 Temperature Pulse Rate 73 71 65 Respiratory Rate Blood Pressure Pulse Oximetry 97 97 95 Oxygen Delivery Method 06/30/25 17:30 06/30/25 18:00 06/30/25 18:30 Temperature Pulse Rate 66 66 65 Respiratory Rate Blood Pressure Pulse Oximetry 97 94 96 Oxygen Delivery Method MDM - Male Genitourinary <Mg Hawk MD - Last Filed: 06/30/25 17:04> Medical Records Medical records narrative: Review of the emergency department note from June 28, reviewed the CT abdomen and pelvis on June 28, I independently reviewed the images in addition to the radiology report of colitis he did not have hydronephrosis he did not have obstructive stones although it did appear that he had a right renal stone. Lab Data Lab results narrative: Today, no leukocytosis, creatinine is improved at 1.37. Mildly elevated lipase. Has red cells in the urine without pyuria 06/30/25 16:10 06/30/25 16:10 Labs: Lab Results 06/30/25 06/30/25 Range/Units 16:00 16:10 WBC 6.0 (4.5-11.0) X10^3/uL RBC 4.14 L (4.5-5.9) X10^6/uL Hgb 13.3 L (13.5-17.5) g/dL Hct 38.7 L (41-53) % MCV 93.6 (80-100) fL MCH 32.2 (26-34) PG MCHC 34.4 (30-36) % RDW 12.2 (11.6-14.8) % Plt Count 250 (150-400) X10^3/uL Neut % (Auto) 69.9 (50-75) % Lymph % (Auto) 16.4 L (25-40) % [place] % (Auto) 10.9 (3-14) % Eos % (Auto) 2.0 (2-4) % Baso % (Auto) 0.8 (0-2) % Neut # (Auto) 4200 (6549-8266) /uL Lymph # (Auto) 1000 L (3177-5252) /uL [place] # (Auto) 700 (0-900) /uL Eos # (Auto) 100 (0-450) /uL Baso # (Auto) 100 (0-100) /uL Sodium 142 (137-145) mmol/L Potassium 4.0 (3.4-5.1) mmol/L Chloride 106 (98-107) mmol/L Carbon Dioxide 24 (22-32) mmol/L BUN 24 H (9-20) mg/dL Creatinine 1.37 H (0.66-1.25) mg/dL Estimated GFR > 60 (>60) mL/min BUN/Creatinine Ratio 17.5 (6-22) Glucose 114 H (70-99) mg/dL Calcium 9.1 (8.4-10.2) mg/dL Total Bilirubin 0.8 (0.2-1.3) mg/dL AST 38 (17-59) IU/L ALT 32 (<50) IU/L Alkaline Phosphatase 75 (38-126) U/L Total Protein 7.6 (6.3-8.2) g/dL Albumin 4.5 (3.5-5.0) g/dL Globulin 3.1 (1.7-4.1) g/dL Albumin/Globulin Ratio 1.5 (1.0-2.8) Lipase 371 H D (23-300) U/L Urine RBC 10-30/hpf H (0-5/HPF) Urine WBC 1-5/hpf (0-5/HPF) Ur Squamous Epith Cells 1-5 /hpf (0-5/HPF) Urine Bacteria Occasional (0-1) (None) Urine Mucus 1+ H (Negative) Ur Culture Indicated? Cult not indicated Vol Urine Centrifuged 10ml (spun) Urine Dip Bedside Urine Glucose Negative Bedside Urine Bilirubin - Negative Bedside Urine Ketone - Negative Urine Specific [place] 1.025 Bedside Urine Occult Blood +++ Bedside Urine pH 6.0 Bedside Urine Protein + 30 Bedside Urine Urobilinogen - Negative Bedside Urine Nitrite - Negative Bedside Urine Leukocytes - Negative Esterase MDM Narrative Medical decision making narrative: 55-year-old male with hematuria flank and testicular pain. He does have a left testicular tenderness so I am going to obtain an ultrasound although I have a low suspicion of torsion. He now has hematuria, previous CT showed a large renal calcification I am going to repeat CT today to evaluate for hydronephrosis and ureteral stone. He does not have a fever he does not have leukocytosis he is not tachycardic or hypotensive I considered but do not suspect sepsis his urine does not appear to be infected. <Elke Rosario, - Last Filed: 06/30/25 23:27> Lab Data Labs: Lab Results 06/30/25 06/30/25 Range/Units 16:00 16:10 WBC 6.0 (4.5-11.0) X10^3/uL RBC 4.14 L (4.5-5.9) X10^6/uL Hgb 13.3 L (13.5-17.5) g/dL Hct 38.7 L (41-53) % MCV 93.6 (80-100) fL MCH 32.2 (26-34) PG MCHC 34.4 (30-36) % RDW 12.2 (11.6-14.8) % Plt Count 250 (150-400) X10^3/uL Neut % (Auto) 69.9 (50-75) % Lymph % (Auto) 16.4 L (25-40) % [place] % (Auto) 10.9 (3-14) % Eos % (Auto) 2.0 (2-4) % Baso % (Auto) 0.8 (0-2) % Neut # (Auto) 4200 (1289-6545) /uL Lymph # (Auto) 1000 L (7676-5669) /uL [place] # (Auto) 700 (0-900) /uL Eos # (Auto) 100 (0-450) /uL Baso # (Auto) 100 (0-100) /uL Sodium 142 (137-145) mmol/L Potassium 4.0 (3.4-5.1) mmol/L Chloride 106 (98-107) mmol/L Carbon Dioxide 24 (22-32) mmol/L BUN 24 H (9-20) mg/dL Creatinine 1.37 H (0.66-1.25) mg/dL Estimated GFR > 60 (>60) mL/min BUN/Creatinine Ratio 17.5 (6-22) Glucose 114 H (70-99) mg/dL Calcium 9.1 (8.4-10.2) mg/dL Total Bilirubin 0.8 (0.2-1.3) mg/dL AST 38 (17-59) IU/L ALT 32 (<50) IU/L Alkaline Phosphatase 75 (38-126) U/L Total Protein 7.6 (6.3-8.2) g/dL Albumin 4.5 (3.5-5.0) g/dL Globulin 3.1 (1.7-4.1) g/dL Albumin/Globulin Ratio 1.5 (1.0-2.8) Lipase 371 H D (23-300) U/L Urine RBC 10-30/hpf H (0-5/HPF) Urine WBC 1-5/hpf (0-5/HPF) Ur Squamous Epith Cells 1-5 /hpf (0-5/HPF) Urine Bacteria Occasional (0-1) (None) Urine Mucus 1+ H (Negative) Ur Culture Indicated? Cult not indicated Vol Urine Centrifuged 10ml (spun) Urine Dip Bedside Urine Glucose Negative Bedside Urine Bilirubin - Negative Bedside Urine Ketone - Negative Urine Specific [place] 1.025 Bedside Urine Occult Blood +++ Bedside Urine pH 6.0 Bedside Urine Protein + 30 Bedside Urine Urobilinogen - Negative Bedside Urine Nitrite - Negative Bedside Urine Leukocytes - Negative Esterase MDM Narrative Medical decision making narrative: 55-year-old male with hematuria flank and testicular pain. He does have a left testicular tenderness so I am going to obtain an ultrasound although I have a low suspicion of torsion. He now has hematuria, previous CT showed a large renal calcification I am going to repeat CT today to evaluate for hydronephrosis and ureteral stone. He does not have a fever he does not have leukocytosis he is not tachycardic or hypotensive I considered but do not suspect sepsis his urine does not appear to be infected. 06/30/25 Dr. Rosario: Patient signed out to myself while awaiting CT and ultrasound. Creatinine is 1.37 improved from 06/27/2025 the appears consistent with priors in 2022. Electrolytes are otherwise appropriate BUN 24 LFTs are normal lipase is 371 has been mildly elevated on prior visits in 2022. Labs show white count of 6 hemoglobin of 13.3 fairly consistent with priors of 13-14 platelets are 250. Urine microscopy shows 10-30 red cells 1-5 squamous 1-5 WBCs no bacteria urine is nitrate and leukocyte negative positive for blood and protein. CT KUB shows 6 mm obstructing stone in the right with a right proximal ureter with associated right-sided hydroureter and hydronephrosis, gallstones focal L5- S1 degenerative change in bilateral fat containing inguinal hernias. Scrotal ultrasound shows hyperemia in the epididymi on overlying scrotal skin suggestive of infection in her inflammation, normal testicular morphology bilaterally. Patient received fluids, antinausea and pain medications, Flomax. Patient's pain has not improved here in the department and started to increase a little bit so we will give a dose of oral pain medication. He feels much better at this time. Reviewed all of his findings we will switch his antibiotic as he does not appear to have some epididymitis. Urine does not appear to be infected currently. Reviewed his findings from today we will have him follow up with Urology he notes he has had multiple kidney stones in the past and he thinks he has had a Flomax currently. He does not have a current urologist he follows with. Discussed return precautions. Patient feels comfortable with the plan. Discharge Plan Departure Patient Disposition: Home Clinical Impression: Kidney stone on right side, Epididymitis Instructions: DI for Kidney Stones, DI for Epididymitis Activity Restrictions/Additional Instructions: Follow up with Urology if your symptoms are not improving in the next 48-72 hours. Contact is included below please call for an appointment. You have a kidney stone in the right side with some swelling of the right ureter and kidney. You also have some inflammatory changes to the epididymis both testicles. Because of this he has been prescribed a new antibiotic. Please stop the Augmentin that you has been taking and start the Levaquin. There is also prescription for Flomax take this once daily. You have also prescribed antinausea medication as well as pain medication. You can take 1-2 tablets of the narcotic pain medication every 6 hours as needed. This medication can make you sleepy do not drive, perform hazardous activities or make any major decisions while taking it. This medication will make you constipated please take a stool softener once to twice daily until stools are soft and regular. Please return to the ER if you have any fevers, rapidly worsening pain, persistent vomiting, any lightheadedness or passing out, inability urinate or other new or concerning changes. Prescriptions: New tamsulosin [Flomax] 0.4 mg capsule 0.4 mg PO DAILY Qty: 7 0RF oxycodone-acetaminophen [Percocet] 5-325 mg tablet 1 tab PO Q6H PRN (Reason: pain) Qty: 10 0RF ondansetron 4 mg tablet,disintegrating 4 mg PO Q6H PRN (Reason: nausea and vomiting) Qty: 5 0RF levofloxacin 750 mg tablet 750 mg PO DAILY 7 Days Qty: 7 0RF No Action naproxen 250 MG tablet 250 mg PO PRN PRN (Reason: Pain, Moderate) Qty: 0 Rx Instructions: Pt reports that he takes 2 tabs every am cholecalciferol (vitamin D3) [Vitamin D3] 2,000 UNIT capsule 2,000 unit PO QPM Qty: 0 albuterol sulfate 90 mcg/actuation HFA aerosol inhaler 2 puff inhalation Q4-6H PRN (Reason: Allergic Symptoms) Patient Comments: inhale 1 to 2 puffs by mouth every 4 hours if needed for shortness ofbreath or wheezing ondansetron 4 mg tablet,disintegrating 4 mg PO Q8H PRN (Reason: nausea and vomiting) Qty: 10 0RF amoxicillin-pot clavulanate 875-125 mg tablet 1 tab PO BID Qty: 20 0RF pantoprazole [Protonix] 40 mg tablet,delayed release (DR/EC) 40 mg PO DAILY Qty: 30 0RF ondansetron 4 mg tablet,disintegrating 4 mg PO TID-QID PRN (Reason: nausea and vomiting) Qty: 10 0RF oxycodone 5 mg tablet 5 mg PO Q6H PRN (Reason: pain) Qty: 20 0RF tamsulosin 0.4 mg capsule 0.4 mg PO DAILY Qty: 90 1RF ondansetron 4 mg tablet,disintegrating 4 mg PO Q8H PRN (Reason: nausea and vomiting) Qty: 20 1RF Referrals: Eladio Sainz DO [Physician, Urology] Velma Todd ARNP [Primary Care Provider, Medical] Stand Alone Forms: Patient Portal/API
[2025-06-30] MEDS: SODIUM CHLORIDE 0.9% 1,000 ML 1000 ML IV (17:03)
--- NOTE | 2025-06-30 17:05 | DI.CT.S_ITS ---
PROCEDURE: CT KIDNEY URETER BLADDER (KUB) INDICATIONS: flank pain and hematuria TECHNIQUE: Axial sections were acquired from the lung bases to the pubic symphysis. Coronal and sagittal reformats were performed. For radiation dose reduction, the following was used: automated exposure control, adjustment of mA and/or kV according to patient size. COMPARISON: [facility], CT, CT ABDOMEN PELVIS W CON, 06/28/2025, 0:25. [facility], CT, CT KIDNEY URETER BLADDER (KUB), 03/23/2023, 22:36. FINDINGS: Image quality: Diagnostic. Lower Chest: No significant findings. URINARY: Right Kidney: No nonobstructing right-sided kidney stones are seen. There is at least moderate right-sided hydronephrosis. Right Ureter: There is a 6 mm obstructing stone within the right proximal ureter, as on series 2 image 88 and on series 4, image 67. There is associated moderate to prominent hydronephrosis seen proximally. Left Kidney: No stones or hydronephrosis. Left Ureter: No hydroureter. Bladder: Normal wall thickness. No stones. ABDOMEN: Liver: No contour-deforming solid mass. Gallbladder: Layering gallstones are again seen. No additional CT findings of cholecystitis are seen. Biliary ducts: No biliary dilation. Pancreas: No ductal dilation. Spleen: Size is within normal limits. Adrenal Glands: No adrenal nodules. Stomach and Bowel: Normal colonic caliber, without significant wall thickening. No dilated loops of small bowel are seen. A normal appendix is noted. Peritoneum: No abnormal intraperitoneal fluid. No free air. Ventral Wall: No hernia. Abdominal Nodes: No enlarged retroperitoneal or mesenteric lymph nodes. Vessels: Aorta and inferior vena cava are normal in size. Atherosclerotic calcification is noted. PELVIS: Pelvic Organs: Unremarkable. Pelvic Nodes: Unremarkable. Miscellaneous: Bilateral fat containing inguinal hernias are seen, left larger than right. Bones: Focal L5-S1 degenerative change is seen. IMPRESSION: 6 mm obstructing stone now seen within the right proximal ureter, with associated right-sided hydroureter and hydronephrosis. Additional findings: Gallstones Focal L5-S1 degenerative change Bilateral fat containing inguinal hernias Dictated by: Otf Slater M.D. on 06/30/2025 at 16:57 Approved by: Otf Slater M.D. on 06/30/2025 at 16:59
[2025-06-30] MEDS: TAMSULOSIN 0.4 MG CAPSULE PO (18:32)
== END 2025-06-30 18:47 | disposition home or self-care (01) ==
PROVIDERS: Emergency Medicine; Emergency Provider Emergency Medicine; Family Provider Nurse Practitioner Gerontology; PCP Nurse Practitioner Gerontology
DX: N20.0 Calculus of kidney (principal); N45.1 Epididymitis; R11.2 Nausea with vomiting, unspecified; R19.7 Diarrhea, unspecified; Z87.440 Personal history of urinary (tract) infections
CPT/HCPCS: 36415; 74176; 76870; 80053; 81003; 81015; 83690; 85025; 93975; 96361; 96374; 96375; 99284; J1171; J2405

== ENCOUNTER 2025-07-04 12:42 | Inpatient (IN) | payer OTHER, SELFPAY ==
[2020-09-20 07:39] VITALS: BMI 30.7
[2025-07-04] VITALS (23 sets, daily range): BP systolic 126–169; BP diastolic 63–91; PULSE 69–104; RESP 12–24; TEMP 36.4; O2SAT 94–99; BMI 33.5
[2025-07-04 13:37] LABS: Hematocrit 39.4 % (41-53); Hemoglobin 13.7 g/dL (13.5-17.5); Lymphocytes Absolute Auto 900 /uL (1100-4500); Mean Corpuscular HGB Conc 34.8 % (30-36); Mean Corpuscular Hemoglobin 32.1 PG (26-34); Mean Corpuscular Volume 92.1 fL (80-100)
[2025-07-04 13:43] LABS: Add Manual Diff / Slide Review SLIDE REVIEW
[2025-07-04 13:53] LABS: Alanine Aminotransferase 30 IU/L (<50); Albumin 4.7 g/dL (3.5-5.0); Albumin Globulin Ratio 1.4 (1.0-2.8); Alkaline Phosphatase 85 U/L (38-126); Blood Urea Nitrogen 20 mg/dL (9-20); Calcium 9.8 mg/dL (8.4-10.2); Carbon Dioxide 23 mmol/L (22-32); Chloride 103 mmol/L (98-107); Estimated Glomerular Filt Rate > 60 mL/min (>60); Globulin 3.4 g/dL (1.7-4.1); Glucose 128 mg/dL (70-99); HEMOLYSIS 57 (0-50); Lipase 1740 U/L (23-300); Sodium 138 mmol/L (137-145); Total Protein 8.1 g/dL (6.3-8.2)
[2025-07-04 13:54] LABS: Potassium 4.1 mmol/L (3.4-5.1)
[2025-07-04 14:01] LABS: RBC Morphology Normal Morphology
--- NOTE | 2025-07-04 16:52 | ED.ABDPAIN ---
HPI - Abdominal Pain General Chief Complaint: Abdominal Pain Stated Complaint: Groin Pain Time Seen by Provider: 07/04/25 16:11 Source: patient and EMS Mode of arrival: Ambulatory Limitations: no limitations Related Data Home Medications ?Medication ?Instructions ?Recorded ?Confirmed cholecalciferol (vitamin D3) 50 2,000 unit PO QPM ##0 07/26/17 09/20/20 mcg (2,000 unit) capsule (Vitamin D3) naproxen 250 mg tablet 250 mg PO PRN PRN Pain, Moderate 07/26/17 09/20/20 ##0 albuterol sulfate 90 mcg/actuation 2 puff inhalation Q4-6H PRN 12/17/18 09/20/20 aerosol inhaler Allergic Symptoms Previous Rx's ?Medication ?Instructions ?Recorded ondansetron 4 mg disintegrating 4 mg PO Q8H PRN nausea and 09/06/21 tablet vomiting #10 tabs ondansetron 4 mg disintegrating 4 mg PO TID-QID PRN nausea and 06/11/22 tablet vomiting #10 tabs pantoprazole 40 mg tablet,delayed 40 mg PO DAILY #30 tabs 06/11/22 release (Protonix) ondansetron 4 mg disintegrating 4 mg PO Q8H PRN nausea and 03/24/23 tablet vomiting #20 tabs oxycodone 5 mg tablet 5 mg PO Q6H PRN pain #20 tabs 03/24/23 tamsulosin 0.4 mg capsule 0.4 mg PO DAILY #90 caps 03/24/23 amoxicillin 875 mg-potassium 1 tab PO BID #20 tabs 06/28/25 clavulanate 125 mg tablet levofloxacin 750 mg tablet 750 mg PO DAILY 7 days #7 tabs 06/30/25 ondansetron 4 mg disintegrating 4 mg PO Q6H PRN nausea and 06/30/25 tablet vomiting #5 tabs oxycodone-acetaminophen 5 mg-325 1 tab PO Q6H PRN pain #10 tabs 06/30/25 mg tablet (Percocet) tamsulosin 0.4 mg capsule (Flomax) 0.4 mg PO DAILY #7 caps 06/30/25 Allergies Allergy/AdvReac Type Severity Reaction Status Date / Time morphine Allergy Intermediate Rash Verified 06/27/25 22:28 meperidine (From DEMEROL) Allergy Unknown Verified 06/27/25 22:28 metoclopramide (From Reglan) AdvReac Anxiety Verified 06/27/25 22:28 Review of Systems Review of Systems ROS Unobtainable: All systems reviewed & are unremarkable except as noted in HPI and below Patient History Medical History Hypertension Kidney stones Chronic back pain Surgical History History of lithotripsy Family History Father Myocardial infarct Mother Alcoholism Liver disease Social History household members: spouse and children alcohol intake: never substance use type: marijuana alcohol intake frequency: holidays/special occasions only Exam Initial Vital Signs Initial Vital Signs: Vital Signs Temperature 97.5 F L 07/04/25 12:51 Pulse Rate 104 H 07/04/25 12:51 Respiratory Rate 18 07/04/25 12:51 Blood Pressure 156/90 H 07/04/25 12:51 Pulse Oximetry 99 07/04/25 12:51 Oxygen Delivery Method Room Air 07/04/25 12:51 Course Orders Ordered: ED Orders 07/04/25 13:17 EKG-12 Lead Stat 07/04/25 13:20 Complete Blood Count AUTO DIFF Stat Comprehensive Metabolic Panel Stat Lipase Stat Ondansetron HCl (Ondansetron 4 Mg/2 Ml Inj) 4 mg IV NOW PRN PRN Reason: Nausea And Vomiting Ondansetron HCl (Ondansetron 4 Mg Odt) 4 mg PO NOW PRN PRN Reason: Nausea And Vomiting Vital Signs Vital signs: Vital Signs - 8 hr 07/04/25 12:51 07/04/25 13:10 07/04/25 13:12 Temperature 97.5 F L Pulse Rate 104 H 80 76 Respiratory Rate 18 Blood Pressure 156/90 H Pulse Oximetry 99 96 99 Oxygen Delivery Method Room Air 07/04/25 13:12 07/04/25 13:30 07/04/25 13:30 Temperature Pulse Rate 69 Respiratory Rate 24 12 Blood Pressure 148/76 H 149/84 H Pulse Oximetry 97 Oxygen Delivery Method 07/04/25 14:00 07/04/25 14:00 07/04/25 14:30 Temperature Pulse Rate 69 75 Respiratory Rate 17 15 Blood Pressure 139/73 Pulse Oximetry 94 96 Oxygen Delivery Method 07/04/25 14:30 07/04/25 15:00 07/04/25 15:00 Temperature Pulse Rate 75 Respiratory Rate 15 Blood Pressure 154/83 H 169/85 H Pulse Oximetry 97 Oxygen Delivery Method 07/04/25 15:30 07/04/25 15:30 Temperature Pulse Rate 77 Respiratory Rate 16 Blood Pressure 156/80 H Pulse Oximetry 97 Oxygen Delivery Method MDM - Abdominal Pain Lab Data 07/04/25 13:20 07/04/25 13:20 Labs: Lab Results 07/04/25 Range/Units 13:20 WBC 11.4 H (4.5-11.0) X10^3/uL RBC 4.27 L (4.5-5.9) X10^6/uL Hgb 13.7 (13.5-17.5) g/dL Hct 39.4 L (41-53) % MCV 92.1 (80-100) fL MCH 32.1 (26-34) PG MCHC 34.8 (30-36) % RDW 12.1 (11.6-14.8) % Plt Count TNP Neut % (Auto) 88.5 H (50-75) % Lymph % (Auto) 7.6 L (25-40) % [place] % (Auto) 3.4 (3-14) % Eos % (Auto) 0.1 L (2-4) % Baso % (Auto) 0.4 (0-2) % Neut # (Auto) 34845 H (5717-9852) /uL Lymph # (Auto) 900 L (8158-9334) /uL [place] # (Auto) 400 (0-900) /uL Eos # (Auto) 0 (0-450) /uL Baso # (Auto) 0 (0-100) /uL Platelet Estimate Adequate on smear RBC Morphology Normal morphology Sodium 138 (137-145) mmol/L Potassium 4.1 (3.4-5.1) mmol/L Chloride 103 (98-107) mmol/L Carbon Dioxide 23 (22-32) mmol/L BUN 20 (9-20) mg/dL Creatinine 1.18 (0.66-1.25) mg/dL Estimated GFR > 60 (>60) mL/min BUN/Creatinine Ratio 16.9 (6-22) Glucose 128 H (70-99) mg/dL Calcium 9.8 (8.4-10.2) mg/dL Total Bilirubin 0.9 (0.2-1.3) mg/dL AST 33 (17-59) IU/L ALT 30 (<50) IU/L Alkaline Phosphatase 85 (38-126) U/L Total Protein 8.1 (6.3-8.2) g/dL Albumin 4.7 (3.5-5.0) g/dL Globulin 3.4 (1.7-4.1) g/dL Albumin/Globulin Ratio 1.4 (1.0-2.8) Lipase 1740 H D (23-300) U/L Discharge Plan Departure Prescriptions: No Action naproxen 250 MG tablet 250 mg PO PRN PRN (Reason: Pain, Moderate) Qty: 0 Rx Instructions: Pt reports that he takes 2 tabs every am cholecalciferol (vitamin D3) [Vitamin D3] 2,000 UNIT capsule 2,000 unit PO QPM Qty: 0 albuterol sulfate 90 mcg/actuation HFA aerosol inhaler 2 puff inhalation Q4-6H PRN (Reason: Allergic Symptoms) Patient Comments: inhale 1 to 2 puffs by mouth every 4 hours if needed for shortness ofbreath or wheezing ondansetron 4 mg tablet,disintegrating 4 mg PO Q8H PRN (Reason: nausea and vomiting) Qty: 10 0RF amoxicillin-pot clavulanate 875-125 mg tablet 1 tab PO BID Qty: 20 0RF pantoprazole [Protonix] 40 mg tablet,delayed release (DR/EC) 40 mg PO DAILY Qty: 30 0RF ondansetron 4 mg tablet,disintegrating 4 mg PO TID-QID PRN (Reason: nausea and vomiting) Qty: 10 0RF oxycodone 5 mg tablet 5 mg PO Q6H PRN (Reason: pain) Qty: 20 0RF tamsulosin 0.4 mg capsule 0.4 mg PO DAILY Qty: 90 1RF ondansetron 4 mg tablet,disintegrating 4 mg PO Q8H PRN (Reason: nausea and vomiting) Qty: 20 1RF tamsulosin [Flomax] 0.4 mg capsule 0.4 mg PO DAILY Qty: 7 0RF oxycodone-acetaminophen [Percocet] 5-325 mg tablet 1 tab PO Q6H PRN (Reason: pain) Qty: 10 0RF ondansetron 4 mg tablet,disintegrating 4 mg PO Q6H PRN (Reason: nausea and vomiting) Qty: 5 0RF levofloxacin 750 mg tablet 750 mg PO DAILY 7 Days Qty: 7 0RF Referrals: Velma Todd ARNP [Primary Care Provider, Medical]
[2025-07-04] MEDS: ONDANSETRON 4 MG/2 ML INJ IV (17:32)
--- NOTE | 2025-07-04 17:48 | DI.CT.S_ITS ---
PROCEDURE: CT ABDOMEN PELVIS W CON INDICATIONS: pancreatitis, flank pain, known kidney stone. TECHNIQUE: After the administration of intravenous contrast, axial sections acquired from the lung bases to the pubic symphysis. Coronal and sagittal reformats were performed. For radiation dose reduction, the following was used: automated exposure control, adjustment of mA and/or kV according to patient size. COMPARISON: [facility], CT, CT KIDNEY URETER BLADDER (KUB), 06/30/2025, 17:38. [facility], CT, CT ABDOMEN PELVIS W CON, 06/28/2025, 0:25. [facility], CT, CT ABDOMEN PELVIS W CON, 09/20/2020, 1:34. FINDINGS: Image quality: Diagnostic. Lower Chest: No significant findings. ABDOMEN: Liver: No solid mass. Gallbladder: Dependent calcified gallstones. No pericholecystic inflammatory changes. Biliary ducts: No biliary dilation. Pancreas: No ductal dilation. Spleen: Size is within normal limits. Adrenal Glands: No adrenal nodules. Kidneys and Ureters: 5 mm right mid ureteral calculus at the level of the pelvic brim. Mild to moderate right hydroureteronephrosis. No left hydronephrosis. No solid mass. No complex renal cystic lesion which requires follow up. Stomach and Bowel: Colonic diverticulosis without signs of acute diverticulitis. Normal appendix. Small bowel loops are unremarkable. Peritoneum: No abnormal intraperitoneal fluid. No free air. Ventral Wall: No significant ventral hernia. Abdominal Nodes: No retroperitoneal or mesenteric adenopathy by size criteria. Vessels: Aorta and inferior vena cava are normal in size. PELVIS: Pelvic Organs: Unremarkable. Bladder: No bladder wall thickening, accounting for underdistention. Pelvic Nodes: No enlarged lymph nodes. Miscellaneous: Small bilateral fat containing inguinal hernias. Bones: No aggressive osseous abnormality. Degenerative changes are most notable at the L5-S1 level. IMPRESSION: 1. Right mid ureteral 5 mm calculus, mildly progressed distally when compared to the CT from 06/30/2025. [id number] hydronephrosis and hydroureter. 2. Cholelithiasis. Approved by: Vern Wan M.D. on 07/04/2025 at 18:46
--- NOTE | 2025-07-04 19:16 | ED_ITS ---
HPI - Abdominal Pain General Chief Complaint: Abdominal Pain Stated Complaint: Groin Pain Time Seen by Provider: 07/04/25 16:11 Source: patient and EMS Mode of arrival: Ambulatory History of Present Illness HPI narrative: 55-year-old male with ongoing abdominal pain nausea and vomiting, right groin pain, seen here 06/28/[address] diagnosis of possible colitis, IV Zosyn given started on oral antibiotics Augmentin, presented again here 06/30/2025 with right groin pain with CT showing new right-sided kidney stone 6 mm, antibiotics changed from Augmentin to levofloxacin for discharge home. Having persisting nausea, difficulty getting meds down, last oral Levaquin antibiotic was yesterday morning. Feels too nauseated to keep meds down. MD complaint: abdominal pain Related Data Home Medications ?Medication ?Instructions ?Recorded ?Confirmed cholecalciferol (vitamin D3) 50 2,000 unit PO QPM ##0 07/26/17 07/04/25 mcg (2,000 unit) capsule (Vitamin D3) naproxen 250 mg tablet 250 mg PO PRN PRN Pain, Mode rate 07/26/17 07/04/25 ##0 albuterol sulfate 90 mcg/actuation 2 puff inhalation Q 4-6H PRN 12/17/18 07/04/25 aerosol inhaler Allergic Symptoms atorvastatin 40 mg tablet 40 mg PO DAILY 07/04/2506/15 buspirone 15 mg tablet 30 mg PO BID 07/04/25 clonidine HCl 0.1 mg tablet 0.1 mg PO BEDTIME 07/04/25 07/04/25 fluoxetine 40 mg capsule 40 mg PO DAILY 07/04/2506/15 metoprolol tartrate 25 mg tablet 25 mg PO DAILY fast h eart rate 07/04/25 07/04/25 quetiapine 300 mg tablet 300 mg PO BEDTIME Anxiety 07/04/25 tramadol 50 mg tablet 50 mg PO Q6-8H PRN pain 06/1507/04/25 Previous Rx's ?Medication ?Instructions ?Recorded ondansetron 4 mg disintegrating 4 mg PO Q8H PRN nausea and 09/06/21 tablet vomiting #10 tabs pantoprazole 40 mg tablet,delayed 40 mg PO DAILY #30 t abs 06/11/22 release (Protonix) oxycodone 5 mg tablet 5 mg PO Q6H PRN pain #20 tab s 03/24/23 tamsulosin 0.4 mg capsule 0.4 mg PO DAILY #90 caps 09/05 levofloxacin 750 mg tablet 750 mg PO DAILY 7 days #7 t abs 06/30/25 tamsulosin 0.4 mg capsule (Flomax) 0.4 mg PO DAILY #7 caps 06/30/25 Allergies Allergy/AdvReac Type Severity Reaction Status Date / Time morphine Allergy Intermediate Rash Verified 07/04/25 22:02 meperidine (From DEMEROL) Allergy Unknown Verified 07/04/25 22:02 metoclopramide (From Reglan) AdvReac Anxiety Verified 07/04/25 22:02 Patient History Medical History Hypertension Kidney stones Chronic back pain Surgical History History of lithotripsy Family History Father Myocardial infarct Mother Alcoholism Liver disease Social History household members: spouse and children Smoking Status: Never smoker alcohol intake: never substance use type: marijuana alcohol intake frequency: holidays/special occasions only Exam Narrative Exam Narrative: GENERAL: Well-developed patient, in mild abdominal distress. HEAD: Atraumatic. Normocephalic. EYES: Pupils equal round and reactive. Extraocular motions intact. No scleral icterus. No injection or drainage. ENT: Nose without bleeding, purulent drainage. Throat without erythema, tonsillar hypertrophy or exudate. Airway patent. NECK: Trachea midline. Non tender CARDIOVASCULAR: Regular rate and rhythm without murmurs, gallops, or rubs. RESPIRATORY: Clear to auscultation. Breath sounds equal bilaterally. No wheezes, rales, or rhonchi. GASTROINTESTINAL: Abdomen soft, nondistended, abdomen not particularly tender upper versus lower nor central nor right versus left, no obvious ventral hernias. exam without scrotal edema, nontender right testis and cord. EXTREMITIES: No edema or joint tenderness. BACK: Nontender without deformity or crepitance. No flank tenderness. NEURO: AOx3. Motor functions grossly nonfocal. SKIN: No rash or erythema of visible areas Initial Vital Signs Initial Vital Signs: Vital Signs Temperature 97.5 F L 07/04/25 12:51 Pulse Rate 104 H 07/04/25 12:51 Respiratory Rate 18 07/04/25 12:51 Blood Pressure 156/90 H 07/04/25 12:51 Pulse Oximetry 99 07/04/25 12:51 Oxygen Delivery Method Room Air 07/04/25 12:51 Course Orders Ordered: ED Orders 07/04/25 23:21 Urine Drug Screen, Rapid Stat 07/05/25 04:54 Complete Blood Count AUTO DIFF DAILY Comprehensive Metabolic Panel DAILY Acetaminophen (Acetaminophen 325 Mg Tablet) 650 mg PO Q6H PRN PRN Reason: Fever/Mild Pain (1-3) Hydrocodone Bitart/Acetaminophen (Hydrocodone/Acet 5/325 Tablet) 1 tab PO Q4H PRN PRN Reason: Pain, Moderate (4-6) Albuterol (Albuterol 2.5 Mg/3 Ml Neb (Adult)) 2.5 mg INH Q4H PRN PRN Reason: SHORTNESS OF BREATH/WHEEZING Atorvastatin Calcium (Atorvastatin 20 Mg Tablet) 40 mg PO DAILY TANNA Buspirone HCl (Buspirone 5 Mg Tablet) 30 mg PO BID TANNA Calcium Carbonate (Calcium Carbonate 500 Mg Tab) 1,000 mg PO Q4HR PRN PRN Reason: Dyspepsia Clonidine HCl (Clonidine 0.1 Mg Tablet) 0.1 mg PO BEDTIME TANNA Last Admin: 07/05/25 03:57 Dose: 0.1 mg Documented By: REAL Fluoxetine HCl (Fluoxetine 20 Mg Capsule) 40 mg PO DAILY TANNA Hydromorphone HCl (Hydromorphone 1 Mg/Ml Syringe) 1 mg IV Q4H PRN PRN Reason: Pain, Moderate (4-6) Last Admin: 07/05/25 02:28 Dose: 1 mg Documented By: REAL Sodium Chloride (Normal Saline 0.9%) 1,000 mls @ 100 mls/hr IV CONT TANNA Last Admin: 07/04/25 22:20 Dose: 100 mls/hr Documented By: REAL Piperacillin Sod/Tazobactam (Sod 3.375 gm/ Sodium Chloride) 100 mls @ 25 mls/hr IV Q8H TANNA Last Admin: 07/05/25 03:43 Dose: 25 mls/hr Documented By: REAL Lorazepam (Lorazepam 2 Mg/Ml Inj) 1 mg IV Q6HR PRN PRN Reason: Anxiety Last Admin: 07/05/25 00:36 Dose: 1 mg Documented By: REAL Metoprolol Tartrate (Metoprolol Ir 25 Mg Tablet) 25 mg PO DAILY [facility] Naloxone HCl (Naloxone 0.4 Mg/Ml Vial) 0.2 mg IV Q2MIN PRN PRN Reason: Opiate Reversal Ondansetron HCl (Ondansetron 4 Mg/2 Ml Inj) 4 mg IV NOW PRN PRN Reason: Nausea And Vomiting Last Admin: 07/04/25 17:32 Dose: 4 mg Documented By: STERLING Ondansetron HCl (Ondansetron 4 Mg Odt) 4 mg PO NOW PRN PRN Reason: Nausea And Vomiting Ondansetron HCl (Ondansetron 4 Mg/2 Ml Inj) 4 mg IV Q8HR PRN PRN Reason: Nausea And Vomiting Pantoprazole Sodium (Pantoprazole Dr 40 Mg Tablet) 40 mg PO DAILY [facility] Prochlorperazine (Prochlorperazine 10 Mg/2 Ml Vial) 10 mg IV Q6HR PRN PRN Reason: Nausea Last Admin: 07/04/25 23:00 Dose: 10 mg Documented By: REAL Promethazine HCl (Promethazine 12.5 Mg Supp) 12.5 mg VT Q6HR PRN PRN Reason: Nausea And Vomiting Quetiapine Fumarate (Quetiapine 100 Mg Tablet) 300 mg PO BEDTIME [facility] Last Admin: 07/05/25 03:57 Dose: 300 mg Documented By: REAL Tamsulosin HCl (Tamsulosin 0.4 Mg Capsule) 0.4 mg PO DAILY [facility] Last Admin: 07/04/25 23:31 Dose: 0.4 mg Documented By: REAL Tramadol HCl (Tramadol 50 Mg Tablet) 50 mg PO Q6H PRN PRN Reason: Pain, Severe (7-10) Discontinued Medications Albuterol (Albuterol Hfa Mdi 60 Puff/8 Gm Inhaler (Covid Only)) 2 puff INH Q4- 6H PRN PRN Reason: Allergic Symptoms Clonidine HCl (Clonidine 0.1 Mg Tablet) 0.1 mg PO BEDTIME [facility] Hydromorphone HCl (Hydromorphone Hcl 0.5 Mg/0.5 Ml Syringe) 0.5 mg IV NOW ONE Stop: 07/04/25 20:00 Last Admin: 07/04/25 20:14 Dose: 0.5 mg Documented By: RICARDO Levofloxacin (Levaquin) 750 mg in 150 mls @ 100 mls/hr IV NOW ONE Stop: 07/04/25 21:06 Last Infusion: 07/05/25 00:00 Dose: Infused Documented By: Admin: 07/04/25 21:59 Dose: 100 mls/hr Documented By: REAL Metronidazole (Flagyl) 500 mg in 100 mls @ 100 mls/hr IV NOW ONE Stop: 07/04/25 20:36 Last Infusion: 07/04/25 21:50 Dose: Infused Documented By: Admin: 07/04/25 20:26 Dose: 100 mls/hr Documented By: RICARDO Sodium Chloride (Normal Saline 0.9%) 1,000 mls @ 150 mls/hr IV CONT TANNA Last Infusion: 07/04/25 22:25 Dose: Infused Documented By: Infusion: 07/04/25 21:48 Dose: 0 mls/hr Documented By: Admin: 07/04/25 20:14 Dose: 150 mls/hr Documented By: RICARDO Piperacillin Sod/Tazobactam (Sod 3.375 gm/ Sodium Chloride) 100 mls @ 25 mls/hr IV Q8H [facility] Last Admin: 07/04/25 21:34 Dose: Not Given Documented By: REAL Piperacillin Sod/Tazobactam (Sod 4.5 gm/ Sodium Chloride) 100 mls @ 200 mls/hr IV NOW ONE Stop: 07/04/25 21:29 Last Admin: 07/04/25 22:21 Dose: Not Given Documented By: REAL Piperacillin Sod/Tazobactam (Sod 4.5 gm/ Sodium Chloride) 100 mls @ 200 mls/hr IV NOW ONE Stop: 07/05/25 00:29 Last Infusion: 07/05/25 00:42 Dose: Infused Documented By: Admin: 07/05/25 00:00 Dose: 200 mls/hr Documented By: REAL Morphine Sulfate (Morphine 4 Mg/Ml Inj) 3 mg IV Q3HR PRN PRN Reason: Pain, Severe (7-10) Non-Formulary Medication (Buspirone) 30 mg PO BID [facility] Oxycodone/Acetaminophen (Oxycodone/Acetaminophen 5/325 Tablet) 1 tab PO NOW ONE Stop: 07/04/25 19:30 Last Admin: 07/04/25 19:35 Dose: Not Given Documented By: AB Oxycodone/Acetaminophen (Oxycodone/Apap 5/325 Prepack) 1 bottle MISC DIRECTED ONE Stop: 07/04/25 19:30 Last Admin: 07/04/25 19:35 Dose: Not Given Documented By: AB Quetiapine Fumarate (Quetiapine 100 Mg Tablet) 300 mg PO BEDTIME TANNA Tamsulosin HCl (Tamsulosin 0.4 Mg Capsule) 0.4 mg PO DAILY TANNA Vital Signs Vital signs: Vital Signs - 8 hr 07/04/25 14:00 07/04/25 14:00 07/04/25 14:30 Pulse Rate 69 75 Respiratory Rate 17 15 Blood Pressure 139/73 Pulse Oximetry 94 96 07/04/25 14:30 07/04/25 15:00 07/04/25 15:00 Pulse Rate 75 Respiratory Rate 15 Blood Pressure 154/83 H 169/85 H Pulse Oximetry 97 07/04/25 15:30 07/04/25 15:30 07/04/25 16:00 Pulse Rate 77 Respiratory Rate 16 Blood Pressure 156/80 H 157/87 H Pulse Oximetry 97 07/04/25 16:00 07/04/25 16:30 07/04/25 16:30 Pulse Rate 83 77 Respiratory Rate Blood Pressure 126/67 Pulse Oximetry 97 96 07/04/25 17:00 07/04/25 17:00 07/04/25 17:30 Pulse Rate 74 87 Respiratory Rate 16 13 Blood Pressure 134/63 Pulse Oximetry 94 96 07/04/25 17:30 07/04/25 18:00 07/04/25 18:30 Pulse Rate 80 78 Respiratory Rate 12 12 Blood Pressure 132/71 Pulse Oximetry 95 97 07/04/25 19:00 07/04/25 19:18 07/04/25 19:18 Pulse Rate 73 89 Respiratory Rate 19 15 Blood Pressure 163/83 H Pulse Oximetry 97 98 07/04/25 19:30 07/04/25 19:30 07/04/25 20:00 Pulse Rate 83 80 Respiratory Rate 16 Blood Pressure 157/83 H Pulse Oximetry 97 97 07/04/25 20:00 07/04/25 20:30 07/04/25 20:30 Pulse Rate 78 Respiratory Rate 16 Blood Pressure 165/91 H 155/88 H Pulse Oximetry 97 MDM - Abdominal Pain Lab Data Attestation: I reviewed the patient's lab results. Lab results narrative: White blood cell count 79561, hemoglobin 13.7, platelets count not numerically reported. Glucose 128. Normal renal function, serum CO2, electrolytes. Liver functions normal. Lipase 1740 elevated. 07/05/25 04:54 07/05/25 04:54 Labs: Lab Results 07/04/25 07/04/25 Range/Units 13:20 17:18 WBC 11.4 H (4.5-11.0) X10^3/uL RBC 4.27 L (4.5-5.9) X10^6/uL Hgb 13.7 (13.5-17.5) g/dL Hct 39.4 L (41-53) % MCV 92.1 (80-100) fL MCH 32.1 (26-34) PG MCHC 34.8 (30-36) % RDW 12.1 (11.6-14.8) % Plt Count TNP Neut % (Auto) 88.5 H (50-75) % Lymph % (Auto) 7.6 L (25-40) % Wilkinson % (Auto) 3.4 (3-14) % Eos % (Auto) 0.1 L (2-4) % Baso % (Auto) 0.4 (0-2) % Neut # (Auto) 65746 H (9560-4208) /uL Lymph # (Auto) 900 L (4019-3498) /uL Wilkinson # (Auto) 400 (0-900) /uL Eos # (Auto) 0 (0-450) /uL Baso # (Auto) 0 (0-100) /uL Platelet Estimate Adequate on smear RBC Morphology Normal morphology Sodium 138 (137-145) mmol/L Potassium 4.1 (3.4-5.1) mmol/L Chloride 103 (98-107) mmol/L Carbon Dioxide 23 (22-32) mmol/L BUN 20 (9-20) mg/dL Creatinine 1.18 (0.66-1.25) mg/dL Estimated GFR > 60 (>60) mL/min BUN/Creatinine Ratio 16.9 (6-22) Glucose 128 H (70-99) mg/dL Calcium 9.8 (8.4-10.2) mg/dL Total Bilirubin 0.9 (0.2-1.3) mg/dL AST 33 (17-59) IU/L ALT 30 (<50) IU/L Alkaline Phosphatase 85 (38-126) U/L Total Protein 8.1 (6.3-8.2) g/dL Albumin 4.7 (3.5-5.0) g/dL Globulin 3.4 (1.7-4.1) g/dL Albumin/Globulin Ratio 1.4 (1.0-2.8) Lipase 1740 H D (23-300) U/L Urine RBC 10-30/hpf H (0-5/HPF) Urine WBC 5-10/hpf H (0-5/HPF) Ur Squamous Epith Cells None seen (0-5/HPF) Urine Bacteria None seen (None) Vol Urine Centrifuged 10ml (spun) Point of care testing: Urine Dip Bedside Urine Glucose Negative Bedside Urine Bilirubin - Negative Bedside Urine Ketone ++ 40 Urine Specific [place] 1.015 Bedside Urine Occult Blood +++ Bedside Urine pH 6.0 Bedside Urine Protein +/- 15 Bedside Urine Urobilinogen - Negative Bedside Urine Nitrite - Negative Bedside Urine Leukocytes - Negative Esterase Imaging Data CT scan - abdomen/pelvis: Radiologist's Impression: [place] [address] CT Scan Report Signed Patient: Javan Galo MR#: [id number] : 1970 Acct:[id number] Age/Sex: 55 / M Date of Service: 07/04/25 Loc: ED Accession Number: [id number] Procedure: CT abdomen pelvis w con Ordering Provider: Elke Rosario D.O. PROCEDURE: CT ABDOMEN PELVIS W CON INDICATIONS: pancreatitis, flank pain, known kidney stone. TECHNIQUE: After the administration of intravenous contrast, axial sections acquired from the lung bases to the pubic symphysis. Coronal and sagittal reformats were performed. For radiation dose reduction, the following was used: automated exposure control, adjustment of mA and/or kV according to patient size. COMPARISON: [facility], CT, CT KIDNEY URETER BLADDER (KUB), 06/30/2025, 17:38. [facility], CT, CT ABDOMEN PELVIS W CON, 06/28/2025, 0:25. [facility], CT, CT ABDOMEN PELVIS W CON, 09/20/2020, 1:34. FINDINGS: Image quality: Diagnostic. Lower Chest: No significant findings. ABDOMEN: Liver: No solid mass. Gallbladder: Dependent calcified gallstones. No pericholecystic inflammatory changes. Biliary ducts: No biliary dilation. Pancreas: No ductal dilation. Spleen: Size is within normal limits. Adrenal Glands: No adrenal nodules. Kidneys and Ureters: 5 mm right mid ureteral calculus at the level of the pelvic brim. Mild to moderate right hydroureteronephrosis. No left hydronephrosis. No solid mass. No complex renal cystic lesion which requires follow up. Stomach and Bowel: Colonic diverticulosis without signs of acute diverticulitis. Normal appendix. Small bowel loops are unremarkable. Peritoneum: No abnormal intraperitoneal fluid. No free air. Ventral Wall: No significant ventral hernia. Abdominal Nodes: No retroperitoneal or mesenteric adenopathy by size criteria. Vessels: Aorta and inferior vena cava are normal in size. PELVIS: Pelvic Organs: Unremarkable. Bladder: No bladder wall thickening, accounting for underdistention. Pelvic Nodes: No enlarged lymph nodes. Miscellaneous: Small bilateral fat containing inguinal hernias. Bones: No aggressive osseous abnormality. Degenerative changes are most notable at the L5-S1 level. IMPRESSION: 1. Right mid ureteral 5 mm calculus, mildly progressed distally when compared to the CT from 06/30/2025. [id number] hydronephrosis and hydroureter. 2. Cholelithiasis. Approved by: Vern Wan M.D. on 07/04/2025 at 18:46 MDM Narrative Medical decision making narrative: 55-year-old male with recent diagnosis of right-sided kidney stone 06/28/25, having worse pain on oral pain medication, nausea with retching but no emesis, given Toradol by EMS during transport. Labs and CT ordered after triage. Pain seems to be improved. Afebrile, sirs screen negative. No scrotal tenderness to my exam today, clinically doubt orchitis or epididymitis. Lab data: White blood cell count 09128, hemoglobin 13.7, platelets count not numerically reported. Glucose 128. Normal renal function, serum CO2, electrolytes. Liver functions normal. Lipase [address] abdomen and pelvis. IMPRESSION: 1. Right mid ureteral 5 mm calculus, mildly progressed distally when compared to the CT from 06/30/2025. [id number] hydronephrosis and hydroureter. 2. Cholelithiasis. See radiology report. Lipasemia noted, no imaging description for pancreatitis, no epigastric area discomfort on exam. Right-sided kidney stone still present but a little further distal in position now compared to recent 06/28/25 sudy. We discussed oral fluid challenge, he feels too nauseated to attempt. In context of increased lipase consider admission. No urology in-house local now but Dr. Sainz scheduled to be available tomorrow Saturday. Patient prefers to be admitted. 2030, case discussed with hospitalist Dr. Jackson who accepts patient for admission. Critical Care Time Critical Care Time Critical Care Time: Yes Total Critical Care Time: 35 Attestation: The high probability of a clinically significant, sudden or life threatening deterioration of the [cardiopulmonary, gastrointestinal, abdominopelvic, genitourinary] system(s) required my full and direct attention, intervention and personal management. The aggregate critical care time was [35] minutes. This time is in addition to time spent performing reported procedures but includes the following: [x] Data Review and interpretation [x] Patient assessment and monitoring of vital signs [x] Documentation [x] Medication orders and management Discharge Plan Departure Patient Disposition: Admitted As Inpatient Clinical Impression: Right ureteral calculus, Elevated lipase Admit Date/Time: 07/04/25 21:12 Admit Provider: Carlo Solano
[2025-07-04] MEDS: SODIUM CHLORIDE 0.9% 1,000 ML 150 ML IV (20:14)
[2025-07-04] MEDS: metroNIDAZOLE 500 MG/100 ML PIGGYBACK 100 MG IV (20:26)
[2025-07-04] MEDS: SODIUM CHLORIDE 0.9% 1,000 ML 100 ML IV (22:20)
--- NOTE | 2025-07-04 22:47 | P.HP_ITS ---
History of Present Illness History of Present Illness Date Patient Seen: 07/04/25 Time Patient Seen: 22:47 Chief complaint: Groin Pain Narrative: The pt is a 55 yo with a hx of recurrent kidney stones which he reports I've had about 20 before and Major Depressive Disorder with high anxiety who reports ahving a one week hx of abdominal pain in the RLQ non-radiating and nausea. There has been no vomiting, no change in bowel habits, no dysuria but he does reports having some occational back pain. There has been no fevers, chills, hematuria or incontinence. He went to the ER on 06/28, dx with colitis via CT scan and given Augmentin. His symptoms did not improved so he returned to the ER on 06/30 and reported scrotal pain and was given 3 days of Levofloxacin. He continued to have nausea so he came to the ER tonight, his thhird CT scan peformed. [facility] Medical History Hypertension Kidney stones Chronic back pain Surgical History History of lithotripsy Family History Father Myocardial infarct Mother Alcoholism Liver disease Social History household members: spouse and children Smoking Status: Never smoker alcohol intake: never substance use type: marijuana Meds Home Medications and Allergies Home Medications ?Medication ?Instructions ?Recorded ?Confirmed ?Type cholecalciferol (vitamin D3) 50 2,000 unit PO QPM ##0 07/26/17 07/04/25 History mcg (2,000 unit) capsule (Vitamin D3) naproxen 250 mg tablet 250 mg PO PRN PRN Pain, Mode rate 07/26/17 07/04/25 History ##0 albuterol sulfate 90 mcg/actuation 2 puff inhalation Q 4-6H PRN 12/17/18 07/04/25 History aerosol inhaler Allergic Symptoms ondansetron 4 mg disintegrating 4 mg PO Q8H PRN nausea and 09/06/21 07/04/25 Rx tablet vomiting #10 tabs pantoprazole 40 mg tablet,delayed 40 mg PO DAILY #30 t abs 06/11/22 07/04/25 Rx release (Protonix) oxycodone 5 mg tablet 5 mg PO Q6H PRN pain #20 tab s 03/24/23 07/04/25 Rx tamsulosin 0.4 mg capsule 0.4 mg PO DAILY #90 caps 09/0507/04/25 Rx levofloxacin 750 mg tablet 750 mg PO DAILY 7 days #7 t abs 06/30/25 07/04/25 Rx tamsulosin 0.4 mg capsule (Flomax) 0.4 mg PO DAILY #7 caps 06/30/25 07/04/25 Rx atorvastatin 40 mg tablet 40 mg PO DAILY 07/04/2506/15 History buspirone 15 mg tablet 30 mg PO BID 07/04/25 History clonidine HCl 0.1 mg tablet 0.1 mg PO BEDTIME 07/04/25 07/04/25 History fluoxetine 40 mg capsule 40 mg PO DAILY 07/04/2506/15 History metoprolol tartrate 25 mg tablet 25 mg PO DAILY fast h eart rate 07/04/25 07/04/25 History quetiapine 300 mg tablet 300 mg PO BEDTIME Anxiety 07/04/25 History tramadol 50 mg tablet 50 mg PO Q6-8H PRN pain 06/1507/04/25 History Allergies Allergy/AdvReac Type Severity Reaction Status Date / Time morphine Allergy Intermediate Rash Verified 07/04/25 22:02 meperidine (From DEMEROL) Allergy Unknown Verified 07/04/25 22:02 metoclopramide (From Reglan) AdvReac Anxiety Verified 07/04/25 22:02 Exam Vital Signs (past 8 hours): - 07/04/25 15:00 07/04/25 15:00 07/04/25 15:30 Temperature Pulse Rate 75 77 Respiratory Rate 15 16 Blood Pressure 169/85 H Pulse Oximetry 97 97 Oxygen Delivery Method Oxygen Flow Rate 07/04/25 15:30 07/04/25 16:00 07/04/25 16:00 Temperature Pulse Rate 83 Respiratory Rate Blood Pressure 156/80 H 157/87 H Pulse Oximetry 97 Oxygen Delivery Method Oxygen Flow Rate 07/04/25 16:30 07/04/25 16:30 07/04/25 17:00 Temperature Pulse Rate 77 74 Respiratory Rate 16 Blood Pressure 126/67 Pulse Oximetry 96 94 Oxygen Delivery Method Oxygen Flow Rate 07/04/25 17:00 07/04/25 17:30 07/04/25 17:30 Temperature Pulse Rate 87 Respiratory Rate 13 Blood Pressure 134/63 132/71 Pulse Oximetry 96 Oxygen Delivery Method Oxygen Flow Rate 07/04/25 18:00 07/04/25 18:30 07/04/25 19:00 Temperature Pulse Rate 80 78 73 Respiratory Rate 12 12 19 Blood Pressure Pulse Oximetry 95 97 97 Oxygen Delivery Method Oxygen Flow Rate 07/04/25 19:18 07/04/25 19:18 07/04/25 19:30 Temperature Pulse Rate 89 83 Respiratory Rate 15 16 Blood Pressure 163/83 H Pulse Oximetry 98 97 Oxygen Delivery Method Oxygen Flow Rate 07/04/25 19:30 07/04/25 20:00 07/04/25 20:00 Temperature Pulse Rate 80 Respiratory Rate Blood Pressure 157/83 H 165/91 H Pulse Oximetry 97 Oxygen Delivery Method Oxygen Flow Rate 07/04/25 20:30 07/04/25 20:30 07/04/25 21:00 Temperature Pulse Rate 78 Respiratory Rate 16 Blood Pressure 155/88 H 157/84 H Pulse Oximetry 97 Oxygen Delivery Method Oxygen Flow Rate 07/04/25 21:00 07/04/25 21:28 07/04/25 21:30 Temperature Pulse Rate 73 Respiratory Rate 16 Blood Pressure 153/84 H Pulse Oximetry 97 Oxygen Delivery Method Nasal Cannula Oxygen Flow Rate 07/04/25 21:30 07/04/25 21:55 Temperature 97.6 F Pulse Rate 77 72 Respiratory Rate 20 18 Blood Pressure 139/83 Pulse Oximetry 97 99 Oxygen Delivery Method Oxygen Flow Rate 0 Oxygen Delivery Method Nasal Cannula Oxygen Flow Rate 0 Const General: cooperative, healthy appearing, comfortable and anxious Resp Auscultation: clear to auscultation bilaterally Cardio Rate: regular rate Rhythm: regular rhythm GI Palpation: soft and no hepatosplenomegaly Objective Imaging CT scan - abdomen: My impression: 5 mm ureteral stone on the Right, some gall stones, no inflammation Labs 07/04/25 13:20 07/04/25 13:20 Labs: Laboratory Results - last 24 hr 07/04/25 07/04/25 13:20 17:18 WBC 11.4 H RBC 4.27 L Hgb 13.7 Hct 39.4 L MCV 92.1 MCH 32.1 MCHC 34.8 RDW 12.1 Plt Count TNP Neut % (Auto) 88.5 H Lymph % (Auto) 7.6 L [place] % (Auto) 3.4 Eos % (Auto) 0.1 L Baso % (Auto) 0.4 Neut # (Auto) 46312 H Lymph # (Auto) 900 L [place] # (Auto) 400 Eos # (Auto) 0 Baso # (Auto) 0 Platelet Estimate Adequate on smear RBC Morphology Normal morphology Sodium 138 Potassium 4.1 Chloride 103 Carbon Dioxide 23 BUN 20 Creatinine 1.18 Estimated GFR > 60 BUN/Creatinine Ratio 16.9 Glucose 128 H Calcium 9.8 Total Bilirubin 0.9 AST 33 ALT 30 Alkaline Phosphatase 85 Total Protein 8.1 Albumin 4.7 Globulin 3.4 Albumin/Globulin Ratio 1.4 Lipase 1740 H D Urine RBC 10-30/hpf H Urine WBC 5-10/hpf H Ur Squamous Epith Cells None seen Urine Bacteria None seen Vol Urine Centrifuged 10ml (spun) Assessment & Plan Assessment & Plan narrative: I have discussed with the ER provider the pt's presenting symptoms, labs and imaging and agree with the decision for admission. I have reviewed the labs presonally showing a WBC of 11.4, Lipase of 1740, with a normal COMP. CT reviewed myself also. 1. Nephroliathiasis- The pt reports that this is similar to previous stones he has had in the past. Will consult Dr. Sainz, urology who will be on service in the AM on Saturday. Continue with IVF, 2. Pancreatitis- unknown if the Levoquin could have caused this, or his Paroxitine which he states is new. Will have pt on clear liquids tonight, IVF, antiemetics ordered, repeat levels in am, no signs of inflammation around the pancreas on CT scan, 3. MDD with anxiety- he reports he is on high dose Quetipime (?) at home, this could be contributing to his presenting symtpoms. will have ativan ordered prn, Dr. Carlo Solano, in [place] has seen and evaluated Javan Galo in the [facility] using all technologies of telemedicine with the pt's consent and nursing assistance. Time-Based Coding :: [TOTAL MINUTES] spent with patient and on the chart (including review of chart, obtaining history, exam, reviewing outside data, placing orders, documenting exam and treatment plan, and counseling patient) on [DATE].
[2025-07-04] MEDS: PROCHLORPERAZINE 10 MG/2 ML VIAL IV (23:00)
[2025-07-04] MEDS: TAMSULOSIN 0.4 MG CAPSULE PO (23:31)
[2025-07-05] MEDS: PIPERACILLIN/TAZO 4.5 GM in SODIUM CHLORIDE 0.9% 100 ML IV
[2025-07-05 00:10] LABS: UR Morphine/Opiate cutoff 300 Negative (Negative); Ur Specific Gravity Normal (Normal); Urine MDMA Negative (Negative); Urine Methamphetamines Negative (Negative); Urine Tetrahydrocannabinol Positive (Negative); Urine Tricyclic Antidepressant Negative (Negative)
--- NOTE | 2025-07-05 01:06 | PC.NURSE ---
maintenance supervisor 2nd shift: Patient arrived from ED approximately 2150, ambulated to bed w/ SBA. Accompanied by spouse. Reports 04/22 RLQ abd pain, nausea w/o emesis. Tolerating sips of water. VSS, SpO2 99% on 1LNC. Patient has hx of sleep apnea, normally sleeps with CPAP at night although is not wearing tonight d/t nausea. IV abx & IVF infusing as ordered. Spoke with MD Solano via [place] cart, patient verbalized understanding of plan of care. Patient stated he was having anxiety and a panic attack shortly after arriving to the unit, MD notified, IV Ativan given. Patient currently resting in bed w/ eyes closed, breathing unlabored. Oriented to call-light, plan of care ongoing.
[2025-07-05 03:30] VITALS: BP 153/91; PULSE 113; RESP 15; TEMP 35.9; O2SAT 95
[2025-07-05] MEDS: PIPERACILLIN/TAZO 3.375 GM in SODIUM CHLORIDE 0.9% 100 ML IV ×3 (03:43→20:27)
[2025-07-05 03:57] VITALS: PULSE 111
[2025-07-05 05:10] LABS: Add Manual Diff / Slide Review NO; Hematocrit 34.9 % (41-53); Hemoglobin 12.3 g/dL (13.5-17.5); Lymphocytes Absolute Auto 600 /uL (1100-4500); Mean Corpuscular HGB Conc 35.1 % (30-36); Mean Corpuscular Hemoglobin 32.8 PG (26-34); Mean Corpuscular Volume 93.4 fL (80-100); Platelet Count 237 X10^3/uL (150-400)
[2025-07-05 05:23] LABS: Alanine Aminotransferase 22 IU/L (<50); Albumin 4.0 g/dL (3.5-5.0); Albumin Globulin Ratio 1.4 (1.0-2.8); Alkaline Phosphatase 74 U/L (38-126); Blood Urea Nitrogen 19 mg/dL (9-20); Calcium 8.7 mg/dL (8.4-10.2); Carbon Dioxide 23 mmol/L (22-32); Chloride 104 mmol/L (98-107); Estimated Glomerular Filt Rate > 60 mL/min (>60); Globulin 2.9 g/dL (1.7-4.1); Glucose 162 mg/dL (70-99); HEMOLYSIS < 15 (0-50); Potassium 3.4 mmol/L (3.4-5.1); Sodium 139 mmol/L (137-145); Total Protein 6.9 g/dL (6.3-8.2)
[2025-07-05 05:52] LABS: Lipase 703 U/L (23-300)
[2025-07-05] MEDS: SODIUM CHLORIDE 0.9% 1,000 ML 100 ML IV ×2 (07:31→17:09)
--- NOTE | 2025-07-05 07:36 | PM.PN.1 ---
Subjective Subjective Interval history: From night doctor: The pt is a 55 yo with a hx of recurrent kidney stones which he reports I've had about 20 before and Major Depressive Disorder with high anxiety who reports ahving a one week hx of abdominal pain in the RLQ non-radiating and nausea. There has been no vomiting, no change in bowel habits, no dysuria but he does reports having some occational back pain. There has been no fevers, chills, hematuria or incontinence. He went to the ER on 06/28, dx with colitis via CT scan and given Augmentin. His symptoms did not improved so he returned to the ER on 06/30 and reported scrotal pain and was given 3 days of Levofloxacin. He continued to have nausea so he came to the ER tonight, his CT scan peformed. S: Has persistent right flank and groin pain. No hematuria. Pain is relatively well-controlled. Urology it was not available until July 06 here. He was informed of this. O: NAD, alert and oriented. Fluent speech. Lungs are clear, normal rate and effort. Heart is regular, no murmur gallop or rub. Abdomen is soft, non distended. Extremities are free of edema. Imaging: CTAP: FINDINGS: Image quality: Diagnostic. Lower Chest: No significant findings. ABDOMEN: Liver: No solid mass. Gallbladder: Dependent calcified gallstones. No pericholecystic inflammatory changes. Biliary ducts: No biliary dilation. Pancreas: No ductal dilation. Spleen: Size is within normal limits. Adrenal Glands: No adrenal nodules. Kidneys and Ureters: 5 mm right mid ureteral calculus at the level of the pelvic brim. Mild to moderate right hydroureteronephrosis. No left hydronephrosis. No solid mass. No complex renal cystic lesion which requires follow up. Stomach and Bowel: Colonic diverticulosis without signs of acute diverticulitis. Normal appendix. Small bowel loops are unremarkable. Peritoneum: No abnormal intraperitoneal fluid. No free air. Ventral Wall: No significant ventral hernia. Abdominal Nodes: No retroperitoneal or mesenteric adenopathy by size criteria. Vessels: Aorta and inferior vena cava are normal in size. PELVIS: Pelvic Organs: Unremarkable. Bladder: No bladder wall thickening, accounting for underdistention. Pelvic Nodes: No enlarged lymph nodes. Miscellaneous: Small bilateral fat containing inguinal hernias. Bones: No aggressive osseous abnormality. Degenerative changes are most notable at the L5-S1 level. IMPRESSION: 1. Right mid ureteral 5 mm calculus, mildly progressed distally when compared to the CT from 06/30/2025. [id number]-ph-rzbheupt hydronephrosis and hydroureter. 2. Cholelithiasis. A/P: 1. Nephroliathiasis- The pt reports that this is similar to previous stones he has had in the past. Will consult Dr. Sainz, urology who will be on service in the AM on Saturday. Continue with IVF, 2. Pancreatitis- unknown if the Levoquin could have caused this, or his Paroxitine which he states is new. Will have pt on clear liquids tonight, IVF, antiemetics ordered, repeat levels in am, no signs of inflammation around the pancreas on CT scan, 3. MDD with anxiety- he reports he is on high dose Quetipime (?) at home, this could be contributing to his presenting symtpoms. will have ativan ordered prn, 4. HTN, stable. PLAN: -continue IV fluids and pain control today. -anticipate urology services on July 06. Exam Vital Signs (past 8 hours): - 07/05/25 03:30 07/05/25 03:57 Temperature 96.7 F L Pulse Rate 113 H 111 H Respiratory Rate 15 Blood Pressure 153/91 H Pulse Oximetry 95 Oxygen Flow Rate 0 Oxygen Delivery Method Nasal Cannula Oxygen Flow Rate 0 Objective Labs 07/05/25 04:54 07/05/25 04:54 Labs: Laboratory Results - last 24 hr 07/04/25 07/04/25 07/04/25 13:20 17:18 23:21 WBC 11.4 H RBC 4.27 L Hgb 13.7 Hct 39.4 L MCV 92.1 MCH 32.1 MCHC 34.8 RDW 12.1 Plt Count TNP Neut % (Auto) 88.5 H Lymph % (Auto) 7.6 L [place] % (Auto) 3.4 Eos % (Auto) 0.1 L Baso % (Auto) 0.4 Neut # (Auto) 62026 H Lymph # (Auto) 900 L [place] # (Auto) 400 Eos # (Auto) 0 Baso # (Auto) 0 Platelet Estimate Adequate on smear RBC Morphology Normal morphology Sodium 138 Potassium 4.1 Chloride 103 Carbon Dioxide 23 BUN 20 Creatinine 1.18 Estimated GFR > 60 BUN/Creatinine Ratio 16.9 Glucose 128 H Calcium 9.8 Total Bilirubin 0.9 AST 33 ALT 30 Alkaline Phosphatase 85 Total Protein 8.1 Albumin 4.7 Globulin 3.4 Albumin/Globulin Ratio 1.4 Lipase 1740 H D Urine RBC 10-30/hpf H Urine WBC 5-10/hpf H Ur Squamous Epith Cells None seen Urine Bacteria None seen Vol Urine Centrifuged 10ml (spun) U Opiates 300ng/mL cut Negative Ur Oxycodone Screen Positive H Urine Methadone Screen Negative Ur Barbiturates Screen Negative U Tricyclic Antidepress Negative Ur Phencyclidine Scrn Negative Ur Amphetamines Screen Negative U Methamphetamines Scrn Negative Ur MDMA Scrn (Ecstasy) Negative U Benzodiazepines Scrn Negative Urine Cocaine Screen Negative U Marijuana (THC) Screen Positive H Urine pH Normal Urine Specific [place] Normal Ur Creatinine Normal 07/05/25 04:54 WBC 7.4 RBC 3.74 L Hgb 12.3 L Hct 34.9 L MCV 93.4 MCH 32.8 MCHC 35.1 RDW 12.4 Plt Count 237 Neut % (Auto) 84.5 H Lymph % (Auto) 8.7 L [place] % (Auto) 5.5 Eos % (Auto) 0.1 L Baso % (Auto) 1.2 Neut # (Auto) 6300 Lymph # (Auto) 600 L [place] # (Auto) 400 Eos # (Auto) 0 Baso # (Auto) 100 Platelet Estimate RBC Morphology Sodium 139 Potassium 3.4 Chloride 104 Carbon Dioxide 23 BUN 19 Creatinine 1.11 Estimated GFR > 60 BUN/Creatinine Ratio 17.1 Glucose 162 H Calcium 8.7 Total Bilirubin 0.7 AST 23 ALT 22 Alkaline Phosphatase 74 Total Protein 6.9 Albumin 4.0 Globulin 2.9 Albumin/Globulin Ratio 1.4 Lipase 703 H D Urine RBC Urine WBC Ur Squamous Epith Cells Urine Bacteria Vol Urine Centrifuged U Opiates 300ng/mL cut Ur Oxycodone Screen Urine Methadone Screen Ur Barbiturates Screen U Tricyclic Antidepress Ur Phencyclidine Scrn Ur Amphetamines Screen U Methamphetamines Scrn Ur MDMA Scrn (Ecstasy) U Benzodiazepines Scrn Urine Cocaine Screen U Marijuana (THC) Screen Urine pH Urine Specific [place] Ur Creatinine PFSH Medical History Hypertension Kidney stones Chronic back pain Surgical History History of lithotripsy Family History Father Myocardial infarct Mother Alcoholism Liver disease Social History household members: spouse and children Smoking Status: Never smoker alcohol intake: never substance use type: marijuana Assessment & Plan Time-Based Coding :: [TOTAL MINUTES] spent with patient and on the chart (including review of chart, obtaining history, exam, reviewing outside data, placing orders, documenting exam and treatment plan, and counseling patient) on [DATE].
[2025-07-05 08:27] VITALS: BP 129/86; PULSE 114; RESP 15; TEMP 35.7; O2SAT 98
[2025-07-05] MEDS: ONDANSETRON 4 MG/2 ML INJ IV (08:28)
--- NOTE | 2025-07-05 09:09 | CM.DANOTE ---
Initial DCP Assessment Note. Review EMR and PT Interview. Met with patient at bedside to discuss discharge needs.PT is alert x 4 in bed. No acute distress. Patient lives independently with in their home. Patient uses a cane at times. will transport home. Payor:? [facility] PCP: Dr. Velma Todd, [place]. Summary & Plan: 55 y/o M arrived to ED via EMS c/o abd pain, N/V, and right groin pain. Admitted INPT, Dx. Nephrolithiasis. Plan: Urology consult, IVF, IV ABO, pain management, and replace electrolytes as needed. Discharge Planning/Care Management CM Discharge Assessment Start: 07/04/25 21:28 Freq: Status: Active Protocol: Document 07/05/25 09:05 (Rec: 07/05/25 09:08 [id number]) Discharge Planning Assessment Assigned Discharge Kavita Song RN CM Fire Prevention Engineer Provider Dr. Velma Todd, [place] Insurance [facility] Advance Directives? No Advance Directives No on File History Provided By Patient Has Patient been No admitted in last 30 days? Prior Living House Arrangements Household Members spouse,children Type of Relies on Others transporation used prior to admit Comment Per patient, he does not drive. Patient's transports as needed. Independent with ADL Yes: uses cane 's Is patient alert and Yes oriented? Barriers to No Discharge Discharge Plan Home Transportation Family Arrangement Referrals Initiated None needed Review Status In Process Please Provide Date 07/05/25 Initial DC Assessment Was Performed Next Review Type Continued Stay Review
[2025-07-05] MEDS: PANTOPRAZOLE DR 40 MG TABLET PO (10:21)
[2025-07-05] MEDS: ATORVASTATIN 20 MG TABLET 40 MG PO (10:21)
[2025-07-05] MEDS: METOPROLOL IR 25 MG TABLET PO (10:21)
[2025-07-05] MEDS: TAMSULOSIN 0.4 MG CAPSULE PO (10:21)
[2025-07-05] MEDS: POTASSIUM CHLORIDE 20 MEQ TAB 40 MEQ PO (10:27)
[2025-07-05] MEDS: SODIUM CHLORIDE 0.9% FLUSH 10 ML IV ×2 (10:28→20:46)
[2025-07-05] MEDS: CALCIUM CARBONATE 500 MG TAB 1000 MG PO (12:20)
[2025-07-05 19:00] VITALS: PULSE 78; RESP 20; TEMP 36.1; O2SAT 98
[2025-07-05 20:30] VITALS: BP 136/89; PULSE 77
[2025-07-05 22:56] VITALS: PULSE 74; O2SAT 97
[2025-07-06] VITALS (7 sets, daily range): BP systolic 128–157; BP diastolic 64–95; PULSE 72–89; RESP 16–20; TEMP 36–37.2; O2SAT 94–96; BMI 33.5
--- NOTE | 2025-07-06 | DI.RAD.S_ITS ---
PROCEDURE: XR ABDOMEN 1V INDICATIONS: R SIDED KIDNEY STONE TECHNIQUE: Right-sided intra-operative images acquired by the Urology service. COMPARISON: [facility], , XR ABDOMEN 1V, 03/26/2023, 2:43. FINDINGS: IMPRESSION: Fluoroscopic guidance utilized for a right-sided urology procedure. Please see operative note. Dictated by: Alan Harvey M.D. on 07/06/2025 at 19:41 Approved by: Alan Harvey M.D. on 07/06/2025 at 19:42
[2025-07-06] MEDS: SODIUM CHLORIDE 0.9% 1,000 ML 100 ML IV ×2 (02:20→12:48)
[2025-07-06] MEDS: PIPERACILLIN/TAZO 3.375 GM in SODIUM CHLORIDE 0.9% 100 ML IV ×2 (04:14→12:45)
[2025-07-06 06:42] LABS: Add Manual Diff / Slide Review NO; Hematocrit 33.8 % (41-53); Hemoglobin 11.7 g/dL (13.5-17.5); Lymphocytes Absolute Auto 1300 /uL (1100-4500); Mean Corpuscular HGB Conc 34.7 % (30-36); Mean Corpuscular Hemoglobin 32.5 PG (26-34); Mean Corpuscular Volume 93.7 fL (80-100); Platelet Count 254 X10^3/uL (150-400)
[2025-07-06 06:51] LABS: Blood Urea Nitrogen 14 mg/dL (9-20); Calcium 8.7 mg/dL (8.4-10.2); Carbon Dioxide 25 mmol/L (22-32); Chloride 108 mmol/L (98-107); Estimated Glomerular Filt Rate > 60 mL/min (>60); Glucose 108 mg/dL (70-99); HEMOLYSIS < 15 (0-50); Potassium 3.9 mmol/L (3.4-5.1); Sodium 138 mmol/L (137-145)
[2025-07-06 07:05] LABS: Cholesterol 147 mg/dL (140-199); HDL Cholesterol 41 mg/dL (40-60); Triglycerides 125 mg/dL (35-150)
--- NOTE | 2025-07-06 07:40 | PM.CN.IH.1 ---
History of Present Illness Consult details Date Patient Seen: 07/06/25 Time Patient Seen: 07:20 Chief complaint: Groin Pain Reason for consult: Right ureteral stone Narrative: 55 y/o M presented to ER for evaluation of severe right groin pain with nausea/vomiting in mid Jun of 2024. He admits to a prior history of nephrolithiasis. He has never passed a kidney stone on his own, he has required one ureteroscopy with laser lithotripsy in the past. He was diagnosed with a 5mm right ureterolith in mid Jun of 2024 and discharged home on medical expulsion therapy. Unfortunately, his pain and nausea/vomiting continued to persist, prompting a second and third presentation within the next few days. His evaluation on 04 Jul 2025 was notable for a WBC of 11.4, sCr of 1.22 and an unremarkable UA. His CT Abd/Pel was notable for a 5mm right mid ureterolith with resultant upstream moderate right hydroureteronephrosis. He was ultimately admitted to the hospitalist service and Urology was consulted for stone management. Meds Home Medications and Allergies Home Medications ?Medication ?Instructions ?Recorded ?Confirmed ?Type cholecalciferol (vitamin D3) 50 2,000 unit PO QPM ##0 07/26/17 07/04/25 History mcg (2,000 unit) capsule (Vitamin D3) naproxen 250 mg tablet 250 mg PO PRN PRN Pain, Moderate 07/26/17 07/04/25 History ##0 albuterol sulfate 90 mcg/actuation 2 puff inhalation Q4-6H PRN 12/17/18 07/04/25 History aerosol inhaler Allergic Symptoms ondansetron 4 mg disintegrating 4 mg PO Q8H PRN nausea and 09/06/21 07/04/25 Rx tablet vomiting #10 tabs pantoprazole 40 mg tablet,delayed 40 mg PO DAILY #30 tabs 06/11/22 07/04/25 Rx release (Protonix) oxycodone 5 mg tablet 5 mg PO Q6H PRN pain #20 tabs 03/24/23 07/04/25 Rx tamsulosin 0.4 mg capsule 0.4 mg PO DAILY #90 caps 03/24/23 07/04/25 Rx levofloxacin 750 mg tablet 750 mg PO DAILY 7 days #7 tabs 06/30/25 07/04/25 Rx tamsulosin 0.4 mg capsule (Flomax) 0.4 mg PO DAILY #7 caps 06/30/25 07/04/25 Rx atorvastatin 40 mg tablet 40 mg PO DAILY 07/04/25 07/04/25 History buspirone 15 mg tablet 30 mg PO BID 07/04/25 07/04/25 History clonidine HCl 0.1 mg tablet 0.1 mg PO BEDTIME 07/04/25 07/04/25 History fluoxetine 40 mg capsule 40 mg PO DAILY 07/04/25 07/04/25 History metoprolol tartrate 25 mg tablet 25 mg PO DAILY fast heart rate 07/04/25 07/04/25 History quetiapine 300 mg tablet 300 mg PO BEDTIME Anxiety 07/04/25 07/04/25 History tramadol 50 mg tablet 50 mg PO Q6-8H PRN pain 07/04/25 07/04/25 History Allergies Allergy/AdvReac Type Severity Reaction Status Date / Time morphine Allergy Intermediate Rash Verified 07/04/25 22:02 meperidine (From DEMEROL) Allergy Unknown Verified 07/04/25 22:02 metoclopramide (From Reglan) AdvReac Anxiety Verified 07/04/25 22:02 Review of Systems Review of Systems Narrative: CONSTITUTIONAL: Denies weight loss, fevers, chills. HEENT: Denies change in vision, hearing. RESP: Denies SOB, cough. CV: Denies palpations, CP. GI: Denies abdominal pain, nausea, vomiting, diarrhea. : Denies dysuria, hematuria, inability to void. MSK: Denies myalgia, joint pain. SKIN: Denies rash, pruritus. NEURO: Denies headache, syncope. PSYCH: Denies recent change in mood, anxiety, depression. Exam Vital Signs (past 8 hours): Fraction of Inspired Oxygen 24 SaO2/FiO2 Ratio 404 Oxygen Delivery Method Nasal Cannula Oxygen Flow Rate 1 Narrative Exam Narrative: GEN: Alert and oriented X3. No acute distress. Well-nourished. EYES: PERRLA, EOMI. HENT: Moist mucus membranes, no scleral icterus, normal neck ROM. RESP: Unlabored breathing, equal rise and fall of chest bilaterally, no cyanosis appreciated. CV: No peripheral edema, unremarkable heart rate. ABD: Soft, non-tender, non-distended, no palpable masses. EXT: No edema, clubbing or cyanosis. SKIN: No rashes or lesions. NEURO: No focal neurologic deficits, CN II-XII grossly intact. PSYCH: Cooperative, appropriate mood and affect. Objective Labs 07/06/25 06:35 07/06/25 06:35 Labs: Laboratory Results - last 24 hr 07/06/25 06:35 WBC 7.0 RBC 3.61 L Hgb 11.7 L Hct 33.8 L MCV 93.7 MCH 32.5 MCHC 34.7 RDW 12.2 Plt Count 254 Neut % (Auto) 72.1 Lymph % (Auto) 19.3 L [place] % (Auto) 6.3 Eos % (Auto) 1.6 L Baso % (Auto) 0.7 Neut # (Auto) 5000 Lymph # (Auto) 1300 [place] # (Auto) 400 Eos # (Auto) 100 Baso # (Auto) 0 Sodium 138 Potassium 3.9 Chloride 108 H Carbon Dioxide 25 BUN 14 Creatinine 1.22 Estimated GFR > 60 BUN/Creatinine Ratio 11.5 Glucose 108 H Calcium 8.7 Triglycerides 125 Cholesterol 147 LDL Cholesterol, Calc 81 HDL Cholesterol 41 PFSH Medical History Hypertension Kidney stones Chronic back pain Surgical History History of lithotripsy Family History Father Myocardial infarct Mother Alcoholism Liver disease Social History household members: spouse and children Tobacco & Substance Use Smoking Status: Never smoker alcohol intake: never substance use type: marijuana Assessment & Plan Assessment and plan (1) Right ureteral calculus: Status: Acute Plan: 55 y/o M w/ h/o nephrolithiasis noted to have a 5mm right mid ureterolith with resultant upstream mild to moderate hydroureteronephrosis in the setting of continued nausea/vomiting and poor pain control. Discussed treatment options to include continued medical expulsion therapy (not recommended given poor pain control and persistent nausea/vomiting) vs cystoscopy, right ureteroscopy, laser lithotripsy with right ureteral stent placement. Discussed risks of the procedure to include but not limited to pain, bleeding, infection, injury to urethra/bladder/ureter, inability to access the ureter requiring discussion with Interventional Radiology regarding a possible ureteral stent placement in an antegrade fashion vs a possible nephroureteral stent and/or percutaneous nephrostomy tube, urinary tract infection, inability to remove all of the stone in one setting, need for emergent open repair of bladder and/or ureter, need for multiple ureteroscopic interventions necessary to render the patient stone free. He indicated understanding, informed consent was obtained today. - Remain NPO for aforementioned procedure this evening - Appreciate assistance of hospitalist team with this patient - If surgery is unremarkable, may discharge home later this evening Time-Based Coding :: [TOTAL MINUTES] spent with patient and on the chart (including review of chart, obtaining history, exam, reviewing outside data, placing orders, documenting exam and treatment plan, and counseling patient) on [DATE]. PROFEE Charge Codes Inpatient or Observation consultation: 18203
--- NOTE | 2025-07-06 08:00 | PM.PN.1 ---
Subjective Subjective Interval history: Summary: Admitted with renal colic and an obstructing stone. No urology services were available on July 05. The patient was treated with pain medication and IV fluids. Urology services are available on July 06 and the patient will be stented as an add on at the end of the day. S: Doing well, pain is mostly controlled. No dyspnea. O: NAD, alert and oriented. Fluent speech. Lungs are clear, normal rate and effort. Heart is regular, no murmur gallop or rub. Abdomen is soft, non distended. Extremities are free of edema. Imaging: CTAP: FINDINGS: Image quality: Diagnostic. Lower Chest: No significant findings. ABDOMEN: Liver: No solid mass. Gallbladder: Dependent calcified gallstones. No pericholecystic inflammatory changes. Biliary ducts: No biliary dilation. Pancreas: No ductal dilation. Spleen: Size is within normal limits. Adrenal Glands: No adrenal nodules. Kidneys and Ureters: 5 mm right mid ureteral calculus at the level of the pelvic brim. Mild to moderate right hydroureteronephrosis. No left hydronephrosis. No solid mass. No complex renal cystic lesion which requires follow up. Stomach and Bowel: Colonic diverticulosis without signs of acute diverticulitis. Normal appendix. Small bowel loops are unremarkable. Peritoneum: No abnormal intraperitoneal fluid. No free air. Ventral Wall: No significant ventral hernia. Abdominal Nodes: No retroperitoneal or mesenteric adenopathy by size criteria. Vessels: Aorta and inferior vena cava are normal in size. PELVIS: Pelvic Organs: Unremarkable. Bladder: No bladder wall thickening, accounting for underdistention. Pelvic Nodes: No enlarged lymph nodes. Miscellaneous: Small bilateral fat containing inguinal hernias. Bones: No aggressive osseous abnormality. Degenerative changes are most notable at the L5-S1 level. IMPRESSION: 1. Right mid ureteral 5 mm calculus, mildly progressed distally when compared to the CT from 06/30/2025. [id number] hydronephrosis and hydroureter. 2. Cholelithiasis. A/P: 1. Nephroliathiasis- The pt reports that this is similar to previous stones he has had in the past. Will consult Dr. Sainz, urology who will be on service in the AM on Saturday. Continue with IVF, 2. Pancreatitis- unknown if the Levoquin could have caused this, or his Paroxitine which he states is new. Will have pt on clear liquids tonight, IVF, antiemetics ordered, repeat levels in am, no signs of inflammation around the pancreas on CT scan, 3. MDD with anxiety- he reports he is on high dose Quetipime (?) at home, this could be contributing to his presenting symtpoms. will have ativan ordered prn, 4. HTN, stable. PLAN: -continue IV fluids and pain control today. -anticipate NPO and stenting July 06, end of day. -Urology consult appreciated. Exam Vital Signs (past 8 hours): - 07/06/25 07:58 Temperature 97 F L Pulse Rate 83 Respiratory Rate 17 Blood Pressure 128/92 H Pulse Oximetry 96 Oxygen Flow Rate 0 Fraction of Inspired Oxygen 24 SaO2/FiO2 Ratio 404 Oxygen Delivery Method Nasal Cannula Oxygen Flow Rate 0 Objective Labs 07/06/25 06:35 07/06/25 06:35 Labs: Laboratory Results - last 24 hr 07/06/25 06:35 WBC 7.0 RBC 3.61 L Hgb 11.7 L Hct 33.8 L MCV 93.7 MCH 32.5 MCHC 34.7 RDW 12.2 Plt Count 254 Neut % (Auto) 72.1 Lymph % (Auto) 19.3 L [place] % (Auto) 6.3 Eos % (Auto) 1.6 L Baso % (Auto) 0.7 Neut # (Auto) 5000 Lymph # (Auto) 1300 [place] # (Auto) 400 Eos # (Auto) 100 Baso # (Auto) 0 Sodium 138 Potassium 3.9 Chloride 108 H Carbon Dioxide 25 BUN 14 Creatinine 1.22 Estimated GFR > 60 BUN/Creatinine Ratio 11.5 Glucose 108 H Calcium 8.7 Triglycerides 125 Cholesterol 147 LDL Cholesterol, Calc 81 HDL Cholesterol 41 [facility] Medical History Hypertension Kidney stones Chronic back pain Surgical History History of lithotripsy Family History Father Myocardial infarct Mother Alcoholism Liver disease Social History household members: spouse and children Smoking Status: Never smoker alcohol intake: never substance use type: marijuana Assessment & Plan Time-Based Coding :: [TOTAL MINUTES] spent with patient and on the chart (including review of chart, obtaining history, exam, reviewing outside data, placing orders, documenting exam and treatment plan, and counseling patient) on [DATE].
[2025-07-06] MEDS: PANTOPRAZOLE DR 40 MG TABLET PO (09:37)
[2025-07-06] MEDS: ATORVASTATIN 20 MG TABLET 40 MG PO (09:37)
[2025-07-06] MEDS: TAMSULOSIN 0.4 MG CAPSULE PO (09:37)
[2025-07-06] MEDS: METOPROLOL IR 25 MG TABLET PO (09:37)
[2025-07-06] MEDS: ONDANSETRON 4 MG/2 ML INJ IV (10:23)
[2025-07-06] MEDS: SODIUM CHLORIDE 0.9% FLUSH 10 ML IV (10:24)
[2025-07-06] MEDS: LACTATED RINGERS 1,000 ML 42 ML IV (16:56)
--- NOTE | 2025-07-06 17:25 | SUR.OPER ---
Lithotomy on padded OR bed, head on pillow, arms secured on padded arm boards at <90 degrees abduction. Legs secured in padded yellow fins stirrups. All pressure points padded and protected.
--- NOTE | 2025-07-06 17:33 | SUR.OPER ---
Lithotomy on padded OR bed, head on pillow, arms secured on padded arm boards at <90 degrees abduction. Legs secured in padded yellow fins stirrups.
--- NOTE | 2025-07-06 18:01 | PM.OP.1 ---
Operative Date/Time/Diagnoses Date of procedure: 07/06/25 Time of procedure: 17:00 Pre-op diagnosis: Right ureteral calculus Post-op diagnosis: same Procedure & Clinicians Procedure: Cystoscopy Right retrograde ureteropyelogram Right ureteroscopy, laser lithotripsy Right ureteral stent placement Intraoperative interpretation of fluoroscopic images, total time < 1 hour Same procedure(s) as scheduled: Yes Indications: 55 y/o M w/ h/o nephrolithiasis noted to have a 5mm right mid ureterolith with resultant upstream mild to moderate hydroureteronephrosis in the setting of continued nausea/vomiting and poor pain control. Discussed treatment options to include continued medical expulsion therapy (not recommended given poor pain control and persistent nausea/vomiting) vs cystoscopy, right ureteroscopy, laser lithotripsy with right ureteral stent placement. Discussed risks of the procedure to include but not limited to pain, bleeding, infection, injury to urethra/bladder/ureter, inability to access the ureter requiring discussion with Interventional Radiology regarding a possible ureteral stent placement in an antegrade fashion vs a possible nephroureteral stent and/or percutaneous nephrostomy tube, urinary tract infection, inability to remove all of the stone in one setting, need for emergent open repair of bladder and/or ureter, need for multiple ureteroscopic interventions necessary to render the patient stone free. He indicated understanding, informed consent was obtained today. Surgeon: Eladio Sainz Assisted?: No Anesthesia Type: General Operative Notes Findings: Moderate sized right mid ureterolith Closure Type: not applicable Specimen(s): other (right ureteral stone) Applied: none Estimated Blood Loss (mL): 2 Blood products transfused: none Procedure in detail: Patient was identified in the preoperative holding area and consent confirmed. He was then brought to the operating room where general anesthesia was induced.? He was placed in the low lithotomy position. He was then prepped and draped in the usual sterile fashion. A surgical timeout was conducted and all were in agreement. Access to the bladder was obtained via a 30 degree cystoscope.? Complete cystoscopy was then performed and no concerning bladder masses or lesions were appreciated.? Bilateral ureteral orifices were easily identified and noted to be orthotopic in nature.? The right ureteral orifice was then cannulated using a 0.035 sensor tip ureteral guidewire and a 5Fr ureteral catheter was advanced over the guidewire and into the distal right ureter.? The guidewire was then removed and a retrograde ureteropyelogram was performed which noted a moderate sized filling defect within the right mid ureter, consistent with CT findings of a moderate sized stone in this area.? The ureteral guidewire was then readvanced through the ureteral catheter and into the right renal pelvis.? The ureteral catheter was then removed and a semirigid ureteroscope was easily advanced into his right ureter alongside the guidewire and to the level of the stone.? A 200 micron laser fiber was then utilized to perform laser lithotripsy.? All stone fragments >1mm in size were removed via the stone basket and sent for chemical analysis.? The ureter was then directly visualized upon removal of the ureteroscope and noted to be stone free.? A 6Fr x 24cm JJ ureteral stent with string was then advanced over the ureteral guidewire.? Upon removal of the guidewire, a good curl was noted in the right renal pelvis and the bladder using fluoroscopy.? The bladder was then drained.? Anesthesia was reversed, he was extubated in the OR and transferred to the PACU in stable condition for recovery. Complications: none Post-operative Condition: stable Disposition: Acute Care Plan for aftercare: Transfer back to acute care. Safe for discharge from Urological perspective. Will return to Urology clinic in 3 months for a RBUS and stone analysis.
--- NOTE | 2025-07-06 18:45 | PM.DS.1 ---
History of Present Illness History of Present Illness Chief complaint: Groin Pain Narrative: From H&P: The pt is a 55 yo with a hx of recurrent kidney stones which he reports I've had about 20 before and Major Depressive Disorder with high anxiety who reports ahving a one week hx of abdominal pain in the RLQ non-radiating and nausea. There has been no vomiting, no change in bowel habits, no dysuria but he does reports having some occational back pain. There has been no fevers, chills, hematuria or incontinence. He went to the ER on 06/28, dx with colitis via CT scan and given Augmentin. His symptoms did not improved so he returned to the ER on 06/30 and reported scrotal pain and was given 3 days of Levofloxacin. He continued to have nausea so he came to the ER tonight, his CT scan peformed. Discharge Providers Provider Date of admission: 07/04/25 21:12 Discharge Date: 07/06/25 Primary care physician: IAIN Trotter Consults: 07/04/25 20:52 Consult to Physician Routine Comment: Consulting Provider: Eladio Sainz Reason for consultation: kidney stone Has provider been notified: No Discharge provider: Dionicio Foreman MD Summary Hospital Course Discharge Diagnosis: 1. Nephroliathiasis- The pt reports that this is similar to previous stones he has had in the past. Will consult Dr. Sainz, urology who will be on service in the AM on Saturday. Continue with IVF, 2. Pancreatitis- unknown if the Levoquin could have caused this, or his Paroxitine which he states is new. Will have pt on clear liquids tonight, IVF, antiemetics ordered, repeat levels in am, no signs of inflammation around the pancreas on CT scan, 3. MDD with anxiety- he reports he is on high dose Quetipime (?) at home, this could be contributing to his presenting symtpoms. will have ativan ordered prn, 4. HTN, stable. Hospital Course: He was admitted and treated with IV fluids and pain medication. Ultimately, he was taken to the OR and stented on July 06 without complication. He was stable for discharge after and we will follow up with Dr. Sainz of Urology in 1 week. Status at Discharge Cognitive/behavioral status at discharge: oriented Functional status at discharge: independent ambulation Overall status at discharge: patient is back to baseline Time Spent with Patient Time spent: Greater than 30 minutes Exam Vital Signs (past 8 hours): - 07/06/25 16:46 07/06/25 17:55 07/06/25 18:12 Temperature 97.8 F 99 F 98.9 F Pulse Rate 89 84 76 Respiratory Rate 20 18 19 Blood Pressure 153/91 H 157/85 H 150/84 H Pulse Oximetry 94 95 95 Oxygen Delivery Method Room Air Room Air Room Air Fraction of Inspired Oxygen 24 SaO2/FiO2 Ratio 404 Oxygen Delivery Method Room Air Oxygen Flow Rate 0 Narrative Exam Narrative: NAD, alert and oriented. Fluent speech. Lungs are clear, normal rate and effort. Heart is regular, no murmur gallop or rub. Abdomen is soft, non distended. Extremities are free of edema. Objective Imaging CT scan - abdomen: Radiologist's impression: 1. Right mid ureteral 5 mm calculus, mildly progressed distally when compared to the CT from 06/30/2025. [id number] hydronephrosis and hydroureter. 2. Cholelithiasis. Labs 07/06/25 06:35 07/06/25 06:35 Labs: Laboratory Results - last 24 hr 07/06/25 06:35 WBC 7.0 RBC 3.61 L Hgb 11.7 L Hct 33.8 L MCV 93.7 MCH 32.5 MCHC 34.7 RDW 12.2 Plt Count 254 Neut % (Auto) 72.1 Lymph % (Auto) 19.3 L [place] % (Auto) 6.3 Eos % (Auto) 1.6 L Baso % (Auto) 0.7 Neut # (Auto) 5000 Lymph # (Auto) 1300 [place] # (Auto) 400 Eos # (Auto) 100 Baso # (Auto) 0 Sodium 138 Potassium 3.9 Chloride 108 H Carbon Dioxide 25 BUN 14 Creatinine 1.22 Estimated GFR > 60 BUN/Creatinine Ratio 11.5 Glucose 108 H Calcium 8.7 Triglycerides 125 Cholesterol 147 LDL Cholesterol, Calc 81 HDL Cholesterol 41 PFSH Medical History Hypertension Kidney stones Chronic back pain Surgical History History of lithotripsy Family History Father Myocardial infarct Mother Alcoholism Liver disease Social History household members: spouse and children Smoking Status: Never smoker alcohol intake: never substance use type: marijuana Discharge Assessment & Plan Assessment and Plan Assessment: 1. Nephrolothiasis, improved. Plan of Treatment: Discharge with oxycodone as needed pain and levofloxacin for perioperative dosing instructions which were given by Urology. Discharge Plan Discharge Plan Patient Disposition: Home Provider Discharge Comment: You have a stent in your right ureter that will keep it open and prevent it from swelling shut. As long as the stent is in place and for up to a few weeks after removal, you may notice blood in your urine to include blood clots. Do not worry, this is normal. As long as you feel that you are able to fully empty your bladder, it is to be expected that you have blood in your urine. I become concerned when you try to urinate and nothing is coming out. This could indicate that the blood clots are too large for you to pass them on your own and you may require placement of a baker catheter. As long as the stent is in place, it may feel like you constantly have to urinate despite the fact that very little urine comes out. This is because the stent is irritating the inside lining of your bladder. You may also notice return of flank pain every time that you urinate, this is caused by urine refluxing up the stent and into your kidney. This pain typically resolves within a few minutes of each urination. Lastly, you may feel that you have bladder spasms while the stent is in place. Women typically describe these as feeling similar to their menstrual cramps, while men describe them as pain in the tip of their penis. This is also normal and to be expected. Your kidney stone was sent for chemical analysis. We will discuss the results of this analysis at your postoperative appointment in 3 months. We will also have you get a renal bladder ultrasound performed to ensure that there is no residual swelling within your kidney from the procedure. This should be completed prior to your follow-up appointment as well. You can expect to have burning with urination for the next few days, this is normal and to be expected after your procedure. You may purchase an OTC medication (Phenazopyridine or Azo), a medication that can help with this burning and discomfort. This medication may change the color of your urine orange, however, this will resolve once you stop taking the medication. Please sit on the toilet and gently remove your right ureteral stent by pulling on the strings. Please remove your stent on the morning of 12 Jul 2025. I suggest that you take one of your pain pills or an NSAID roughly one hour prior to removal of this stent. Should you have any questions or concerns after hours, please call the [employer] for [facility] at [phone]. They can relay any questions or concerns you have to the physician on-call. You have been sent home with an antibiotic. Please take one tab the morning before, the morning of and the morning after your stent removal. Discharge orders & Medications Prescriptions: New levofloxacin 500 mg tablet 500 mg PO DAILY Qty: 3 0RF Rx Instructions: take one tab the morning before, the morning of and the morning after your stent removal Continued naproxen 250 MG tablet 250 mg PO PRN PRN (Reason: Pain, Moderate) Qty: 0 Rx Instructions: Pt reports that he takes 2 tabs every am cholecalciferol (vitamin D3) [Vitamin D3] 2,000 UNIT capsule 2,000 unit PO QPM Qty: 0 albuterol sulfate 90 mcg/actuation HFA aerosol inhaler 2 puff inhalation Q4-6H PRN (Reason: Allergic Symptoms) Patient Comments: inhale 1 to 2 puffs by mouth every 4 hours if needed for shortness ofbreath or wheezing ondansetron 4 mg tablet,disintegrating 4 mg PO Q8H PRN (Reason: nausea and vomiting) Qty: 10 0RF fluoxetine 40 mg capsule 40 mg PO DAILY tramadol 50 mg tablet 50 mg PO Q6-8H PRN (Reason: pain) clonidine HCl 0.1 mg tablet 0.1 mg PO BEDTIME metoprolol tartrate 25 mg tablet 25 mg PO DAILY buspirone 15 mg tablet 30 mg PO BID atorvastatin 40 mg tablet 40 mg PO DAILY quetiapine 300 mg tablet 300 mg PO BEDTIME oxycodone 5 mg tablet 5 mg PO Q6H PRN (Reason: pain) Qty: 15 0RF pantoprazole [Protonix] 40 mg tablet,delayed release (DR/EC) 40 mg PO DAILY Qty: 30 0RF tamsulosin 0.4 mg capsule 0.4 mg PO DAILY Qty: 90 1RF tamsulosin [Flomax] 0.4 mg capsule 0.4 mg PO DAILY Qty: 7 0RF levofloxacin 750 mg tablet 750 mg PO DAILY 7 Days Qty: 7 0RF Follow up/Referrals: Velma Todd ARNP [Primary Care Provider, Medical] Activity Restrictions/Additional Instructions: Recent diagnosis of right-sided can Discharge Health Status Multidrug resistant organism: No MDRO Diet/Activity/Treatments Diet: Regular Visit Report/Discharge Packet Instructions: DI for Cystoscopy, DI for Prescription Opioid Use, DI for Laser Lithotripsy Stand Alone Forms: Patient Portal/API Discharge Data Primary Care Provider: Velma Todd
--- NOTE | 2025-07-06 19:28 | PC.NURSE ---
Patient back from procedure at 1830, vss, denies pain, states he does feel some tenderness in his urethral. Voided pink urine with a few blood drops in urinal. Two strings visualized and instructions to leave re iterated. Patient anticipating discharge tonight and eager to go home. warehouse shift supervisor assuming care and plan to review discharge paperwork and instructions. Patient sitting in bed without complaint at this time, drinking water and has call light within reach.
--- NOTE | 2025-07-06 20:01 | PC.NURSE ---
Discharge at 1954 Patient removed IV himself and then proceeded to freshen up and put on new clothes on in the bathroom. The patient was AnOx4 and in no distress when discharged, and patient was explained discharge instructions and medications in front of his by JUANA Fabian. Vital signs for the patient were: BP: 154/91 (101) HR: 86 SpO2: 96% Room Air Temp: 96.9 F (W/ temporal probe) Patient wheeled down by [facility] at 1954 and patient will be driven home by by car.
== END 2025-07-06 19:55 | disposition home or self-care (01) | DRG 659 ==
LOC: ED 19:11 → AC 21:12
PROVIDERS: Emergency Medicine; Hospitalist; Urology; Admitting Provider Internal Medicine; Emergency Provider Emergency Medicine; Family Provider Nurse Practitioner Gerontology; PCP Nurse Practitioner Gerontology; Referring Provider Emergency Medicine; Visit Provider Internal Medicine
PROC: 0TC68ZZ Extirpation of Matter from Right Ureter, Via Natural or Artificial Opening Endoscopic (ICD-10-PCS; principal; 2025-07-06 17:00)
DX: N13.2 Hydronephrosis with renal and ureteral calculous obstruction (principal); K85.90 Acute pancreatitis without necrosis or infection, unspecified; F32.9 Major depressive disorder, single episode, unspecified; F41.9 Anxiety disorder, unspecified; I10 Essential (primary) hypertension; G89.29 Other chronic pain; M54.9 Dorsalgia, unspecified; Z87.442 Personal history of urinary calculi
CPT/HCPCS: 36415; 74018; 74177; 76000; 80048; 80053; 80061; 80305; 81003; 81015; 82365; 83690; 85025; 87086; 96365; 96375; 99284; 99291; C2617; J0780; J1100; J1171; J1956; J2060; J2250; J2405; J2543; J2704; J3010; J3490; Q9967